=== PATIENT | male | born 1975 | race Caucasian/White ===

== ENCOUNTER 2021-01-22 11:43 | Outpatient (REF) | payer OTHER, SELFPAY ==
[2021-01-22 13:55] LABS: MANUAL DIFF FLAG NO
[2021-01-22 14:01] LABS: Basophils Absolute Auto 0.1 X10*3/uL (0.0-0.2); Basophils Percent Auto 0.6 % (0-2); Eosinophils Absolute Auto 0.1 X10*3/uL (0.0-0.4); Eosinophils Percent Auto 0.9 % (0-4); Hematocrit 42.9 % (42-52); Hemoglobin 15.3 g/dl (14.0-18.0); Imm Gran Abs Auto 0.03 X10*3/uL (0.00-0.03); Imm Gran Pct Auto 0.3 % (0.0-0.4); Lymphocytes Absolute Auto 1.7 X10*3/uL (1.2-4.9); Mean Corpuscular HGB Conc 35.7 g/dl (31.0-36.0); Mean Platelet Volume 9.3 fL (9.4-12.4); Monocytes Absolute Auto 0.7 X10*3/uL (0.1-1.2); Monocytes Percent Auto 7.9 % (2-11); Neutrophils Percent Auto 70.3 % (45-73); Platelet Count 341 X10*3/uL (160-400); Red Blood Count 4.93 X10*6/uL (4.60-5.80); Red Cell Distribution Width 11.7 % (11.0-16.0); White Blood Count 8.6 X10*3/uL (4.8-10.8)
[2021-01-22 14:32] LABS: Anion Gap 16 (12-20); Blood Urea Nitrogen 17 mg/dL (9-16); Calcium 9.9 mg/dL (8.4-10.2); Carbon Dioxide 33 mmol/L (22-29); Chloride 92 mmol/L (96-108); Cholesterol 167 mg/dL; Estimated Glomerular Filt Rate 56; Glucose Fasting 102 mg/dL (60-99); HDL Cholesterol 62 mg/dL; LDL Cholesterol Calculated 93 mg/dl; Potassium 2.9 mmol/L (3.3-5.1); Sodium 138 mmol/L (135-145); Triglycerides 61 mg/dL
== END 2021-01-22 11:44 | disposition home or self-care (01) ==
LOC: HO.HMGCLDS 11:43
PROVIDERS: PCP Internal Medicine; Visit Provider Internal Medicine
DX: Z00.01 Encounter for general adult medical examination with abnormal findings (principal); I10 Essential (primary) hypertension; S61.204A Unspecified open wound of right ring finger without damage to nail, initial encounter; X58.XXXA Exposure to other specified factors, initial encounter; Y93.9 Activity, unspecified; Y92.9 Unspecified place or not applicable; Y99.9 Unspecified external cause status
CPT/HCPCS: 36415; 80048; 80061; 85025

== ENCOUNTER 2023-06-03 11:20 | Outpatient (AMB) | payer OTHER, SELFPAY ==
--- NOTE | 2023-06-03 11:39 | MHC.PC.OV ---
Vital Signs 06/03/23 11:44 Height 5 ft 9 in Weight 183 lb BMI 27.0 BP 122/70 Blood Pressure Location Lt brachial Position Sitting Pulse 65 Pulse Source Pulse Oximeter Pulse Oximetry (%) 98 Oxygen Delivery Method Room Air Intake Visit Reasons: medical issues Intake Note: Pt is here today c/o Rt shoulder pain and tingling Allergies No Known Allergies Allergy (Verified 06/03/23 11:57) Medication List - Last Reconciled 06/03/23 by Natalya Pires MD No Known Home Meds Tobacco use date assessed: 06/03/23 Dental Screening Dental Screen Date: 06/03/23 Did you have a dental visit in the last 12 months?: Yes Did you have a dental problem in the last 6 months where you did not have access to dental care?: Yes Was dental information given to patient?: Patient has dentist HPI medical issues HPI Details 48-year-old male, here today complaining of pain and stiffness in paraspinal muscles in right cervical area, with tingling sensation going down right arm on occasion. Denies any history of trauma, no history of fall, no weakness reported. [facility] Medical History (Updated 06/03/23 @ 12:11 by Natalya Pires MD) Blurred vision, bilateral History of kidney stones Hx of gout Surgical History History of urethral stent S/P orchiopexy S/P tendon repair Family History Father History of hypertension Hx of hyperlipidemia Hx of myocardial infarction Substance use disorder Mother History of COPD Substance use disorder Paternal Uncle Substance use disorder Paternal Grandfather Substance use disorder Paternal Uncle Mental health disorder Paternal Uncle Mental health disorder Social History Housing: House Alcohol intake: current Patient Tobacco Use Status: Never used Tobacco e-Cigarette/Vaping Use: Never Used service: Yes Current occupational status: employed Cognitive needs: No Hearing needs: No Vision needs: No Questionnaire PHQ-9 Over the last 2 weeks, how often have you been bothered by any of the following problems? 1. Little interest or pleasure in doing things: not at all 2. Feeling down, depressed, or hopeless: not at all 3. Trouble falling or staying asleep, or sleeping too much: not at all 4. Feeling tired or having little energy: not at all 5. Poor appetite or overeating: not at all 6. Feeling bad about yourself - or that you are a failure or have let yourself or your family down: not at all 7. Trouble concentrating on things, such as reading the newspaper or watching television: not at all 8. Moving or speaking so slowly that other people could have noticed. Or the opposite - being so fidgety or restless that you have been moving around a lot more than usual: not at all 9. Thoughts that you would be better off or of hurting yourself in some way: not at all Total score: 0 Depression Screening Interpretation: Negative 88944 - PHQ-9 Billing: Yes Source: Developed by Drs. Kishan Hanson, Jeanna Carballo, Ravindra Kendrick and colleagues, with an educational acacia from [employer] Thrive Questionnaire Date Thrive assessed: 06/03/23 I am a: Patient What is your living situation today?: I have a steady place to live Within the past 12 months, did the food you bought not last and you didn't have the money to get more?: Never true Within the past 12 months, did you worry whether your food would run out before you got money to buy more?: Never true Do you have trouble paying for medicines?: No Do you have trouble getting transportation to medical appointments?: No Do you have trouble paying your heating and electricity bill?: No Do you have trouble taking care of your child, family member or friend?: No Do you have trouble with day-to-day activities such as bathing, preparing meals, shopping, managing finances, etc.?: No Are you currently unemployed and looking for a job?: No Are you interested in more education?: No AUDIT C Alcohol Use Questionnaire (AUDIT-C) 1. How often do you have a drink containing alcohol?: Monthly or less 2. How many drinks containing alcohol do you have on a typical day when you are drinking?: 1 or 2 3. How often do you have six or more drinks on one occasion?: Never Total Score: 1 SUSANA-7 AMB Questionnaire SUSANA-7 Date SUSANA - 7 assessed: 06/03/23 Feeling nervous, anxious, or on edge: 0 = Not at all Not being able to stop or control worryin = Not at all Worrying too much about different things: 0 = Not at all Trouble relaxin = Not at all Being so restless that it is hard to sit still: 0 = Not at all Becoming easily annoyed or irritable: 0 = Not at all Feeling afraid as if something awful might happen: 0 = Not at all Total SUSANA-7 score (0-4 normal; 5-9 mild; 10-14 moderate; 15-21 severe): 0 Source: Developed by Drs. Kishan Hanson, Jeanna Carballo, Ravindra Kendrick and colleagues, with an educational acacia from [employer] SUSANA-7 Assessment Billing SUSANA-7 Assessment Tool: SUSANA-7 Assessment 69646 Review of Systems Const All systems reviewed & are unremarkable except as noted in HPI and below Eyes Reports blurry vision (When reading, requesting referral to Ophthalmology, has ) Physical exam (Primary Care) Vital Signs: Last Vital Signs Pulse 65 06/03/23 11:44 BP 122/70 06/03/23 11:44 Pulse Ox 98 06/03/23 11:44 Oxygen Delivery Method Room Air 06/03/23 11:44 BMI result Body Mass Index 27.0 Tobacco/Smoking Status: Tobacco use Status Tobacco use date assessed 06/03/23 06/03/23 11:45 Patient Tobacco Use Status Never used Tobacco 06/03/23 11:45 e-Cigarette/Vaping Use Never Used 06/03/23 11:45 Depression Screening Interpretation: Negative Const General: healthy appearing, comfortable and no acute distress Nutritional Appearance: average body habitus Orientation/consciousness: patient oriented x3 HENMT Head: Yes normocephalic and Yes atraumatic Eyes General: appearance normal, both eyes and all related structures Pupils: Equal, round and reactive pupils present EOM: EOMs intact bilaterally Neck Neck: Yes full ROM, Yes no lymphadenopathy and Yes supple Back/Spine/Pelvis Cervical Spine: normal cervical lordosis, cervical ROM normal, cervical muscular tenderness (On right and over the right trapezius) and No pain with cervical ROM Skin General skin exam: no rashes or lesions noted Neuro General: patient oriented x3 Cranial nerves: Yes Equal, round and reactive pupils present Assessment and Plan Assessment & Plan (1) Cervical paraspinal muscle spasm: Code(s): M62.838 - Other muscle spasm Plan: Ordered x-ray of cervical spine, in the meantime advised to try applying Salonpas patch with lidocaine to affected area twice a day as needed and may take an occasional ibuprofen as needed. (2) Blurred vision, bilateral: Code(s): H53.8 - Other visual disturbances Plan: Ophthalmology referral ordered Orders: Orders XR cervical spine 4V Today M62.838 - Other muscle spasm Referrals Ophthalmology Referral H53.8 - Other visual disturbances Coding Level of Care Code Est Pt Level 3 (09956) Diagnoses Cervical paraspinal muscle spasm M62.838 Blurred vision, bilateral H53.8 Additional Codes SUSANA-7 Assessment Billing - SUSANA-7 Assessment Tool: SUSANA-7 Assessment 91107 ([id number])
[2023-06-03 11:44] VITALS: BP 122/70; PULSE 65; O2SAT 98; BMI 27.0
== END 2023-06-03 13:41 | disposition home or self-care (01) ==
PROVIDERS: PCP Internal Medicine; Visit Provider Internal Medicine
DX: M62.838 Other muscle spasm (principal); H53.8 Other visual disturbances
CPT/HCPCS: 99213

== ENCOUNTER 2023-12-20 07:55 | Outpatient (AMB) | payer OTHER, SELFPAY ==
[2023-12-20 08:08] VITALS: BP 114/80; PULSE 81; O2SAT 97; BMI 27.2
--- NOTE | 2023-12-20 08:08 | A.OFFPC_ITS ---
Vital Signs 12/20/23 08:08 Height 5 ft 9 in Weight 184 lb BMI 27.2 BP 114/80 Blood Pressure Location Rt brachial Position Sitting Pulse 81 Pulse Source Pulse Oximeter Pulse Oximetry (%) 97 Intake Visit Reasons: PHY Intake Note: Pt is here today for his PE: Colonoscopy done thru [facility] 2 wks ago (pt will get report) Allergies No Known Allergies Allergy (Verified 12/20/23 08:13) Medication List - Last Reconciled 12/20/23 by Natalya Pires MD No Known Home Meds Tobacco use date assessed: 12/20/23 Dental Screening Dental Screen Date: 12/20/23 Did you have a dental visit in the last 12 months?: No Was dental information given to patient?: Patient has dentist HPI BESS HPI Details 48-year-old male here today for his phys ical exam. He has history of gout and history of kidney stones, no recent attacks. Has been feeling well with no complaints at present time. He is due for colon cancer screening. Has had COVID vaccines, but declines getting the booster, due for his flu shot, up-to-date with his Tdap. Patient states that he had a colonoscopy done at the [facility] 2 weeks ago with unremarkable findings except for hemorrhoids. Will request copy of record. Complains of mole on left inguinal area which has been increasing in size over the last several months, would like to get it checked. Patient states that he has in a new relationship retina, like to get checked for STI. Has no symptom PFSH Medical History Blurred vision, bilateral Hx of gout History of kidney stones Surgical History S/P orchiopexy History of urethral stent S/P tendon repair Family History Father History of hypertension Hx of hyperlipidemia Hx of myocardial infarction Substance use disorder Mother History of COPD Substance use disorder Paternal Uncle Substance use disorder Paternal Grandfather Substance use disorder Paternal Uncle Mental health disorder Paternal Uncle Mental health disorder Social History Housing: House Alcohol intake: current Patient Tobacco Use Status: Never used Tobacco e-Cigarette/Vaping Use: Never Used service: Yes Current occupational status: employed Cognitive needs: No Hearing needs: No Vision needs: No Questionnaire PHQ-9 Over the last 2 weeks, how often have you been bothered by any of the following problems? 1. Little interest or pleasure in doing things: several days 2. Feeling down, depressed, or hopeless: several days 3. Trouble falling or staying asleep, or sleeping too much: several days 4. Feeling tired or having little energy: not at all 5. Poor appetite or overeating: several days 6. Feeling bad about yourself - or that you are a failure or have let yourself or your family down: several days 7. Trouble concentrating on things, such as reading the newspaper or watching television: not at all 8. Moving or speaking so slowly that other people could have noticed. Or the opposite - being so fidgety or restless that you have been moving around a lot more than usual: not at all 9. 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 Kishan Hanson, Jeanna Carballo, Ravindra Kendrick and colleagues, with an educational acacia from [employer]. Thrive Questionnaire Date Thrive assessed: 06/03/23 I am a: Patient What is your living situation today?: I have a steady place to live Within the past 12 months, did the food you bought not last and you didn't have the money to get more?: Never true Within the past 12 months, did you worry whether your food would run out before you got money to buy more?: Never true Do you have trouble paying for medicines?: No Do you have trouble getting transportation to medical appointments?: No Do you have trouble paying your heating and electricity bill?: No Do you have trouble taking care of your child, family member or friend?: No Do you have trouble with day-to-day activities such as bathing, preparing meals, shopping, managing finances, etc.?: No Are you currently unemployed and looking for a job?: No Are you interested in more education?: No THRIVE Score: 0 AUDIT C Alcohol Use Questionnaire (AUDIT-C) 1. How often do you have a drink containing alcohol?: Never Total Score: 0 SUSANA-7 AMB Questionnaire SUSANA-7 Date SUSANA - 7 assessed: 12/20/23 Feeling nervous, anxious, or on edge: 1 = Several days Not being able to stop or control worryin = Several days Worrying too much about different things: 1 = Several days Trouble relaxin = Not at all Being so restless that it is hard to sit still: 0 = Not at all Becoming easily annoyed or irritable: 0 = Not at all Feeling afraid as if something awful might happen: 0 = Not at all Total SUSANA-7 score (0-4 normal; 5-9 mild; 10-14 moderate; 15-21 severe): 3 Source: Developed by Drs. Kishan Hanson, Jeanna Carballo, Ravindra Kendrick and colleagues, with an educational acacia from [employer]. SUSANA-7 Assessment Billing SUSANA-7 Assessment Tool: SUSANA-7 Assessment 05018 Review of Systems Const Denies body aches, Denies fatigue and Denies fever(s) Eyes Denies change in vision ENT Reports no additional complaints Card Denies chest pain, Denies lightheadedness, Denies palpitations and Denies dyspnea Resp Denies chest congestion, Denies cough, Denies dyspnea and Denies wheezing GI Denies abdominal pain, Denies change in bowel habits and Denies heartburn Denies hematospermia, Denies hematuria, Denies oliguria, Denies difficulty urinating, Denies genital lesions, Denies dysuria, Denies penile discharge, Denies testicular mass, Denies testicular pain, Denies urinary frequency and Denies urinary urgency Musc Reports no additional complaints Skin/Breast Reports as per HPI and Denies rash Neuro Reports no additional complaints Psych Details: Currently being seen by therapist at the [facility] Reports as per HPI Endo Denies fatigue, Denies polydipsia, Denies polyuria and Denies palpitations Gelacio/Lymph Denies easy bruising Aller/Immun Denies seasonal rhinorrhea and Denies wheezing Physical exam (Primary Care) Vital Signs: Last Vital Signs Pulse 81 12/20/23 08:08 BP 114/80 12/20/23 08:08 Pulse Ox 97 12/20/23 08:08 BMI result Body Mass Index 27.2 Tobacco/Smoking Status: Tobacco use Status Tobacco use date assessed 12/20/23 12/20/23 08:11 Patient Tobacco Use Status Never used Tobacco 12/20/23 08:11 e-Cigarette/Vaping Use Never Used 12/20/23 08:11 Depression Screening Interpretation: Positive Depression Screening Follow-up: Existing condition, 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 (Currently sees a therapist at the [facility]) Thrive Assessment: Date of Thrive Assessment Date Thrive assessed 06/03/23 12/20/23 08:11 Const General: healthy appearing, comfortable and no acute distress Nutritional Appearance: average body habitus Orientation/consciousness: patient oriented x3 HENMT Head: Yes normocephalic and Yes atraumatic Ears: hearing grossly normal bilaterally, external ears normal, TM's normal bilaterally and EAC's normal General nose exam: Normal external nose present Face and sinus: Yes face symmetric Mouth: Normal oral and palatal mucosa present, oropharynx normal and moist mucous membranes Throat: Yes posterior oropharynx normal Eyes General: appearance normal, both eyes and all related structures Pupils: Equal, round and reactive pupils present EOM: EOMs intact bilaterally Neck Neck: Yes full ROM, Yes no lymphadenopathy and Yes supple Thyroid: Thyroid normal (Nonpalpable) Chest Chest palpation & inspection: normal inspection of the chest Resp Effort & Inspection: normal respiratory effort and able to speak in complete sentences Auscultation: clear to auscultation bilaterally Cardio Palpation: normal PMI Rate: regular rate Rhythm: regular rhythm Heart sounds: S1 normal heart sound present and S2 normal heart sound present GI Inspection: Yes normal to inspection Palpation (GI): Soft to palpation, nontender, no guarding and no masses Auscultation: normal bowel sounds Male General Exam: Yes normal external exam Penis: normal penis and circumcised Scrotum: no masses Back/Spine/Pelvis Cervical Spine: normal cervical lordosis, cervical ROM normal, cervical muscular tenderness (On right and over the right trapezius) and No pain with cervical ROM Skin Other: Black oval shaped slightly raised lesion over left inguinal area, well-defined borders, nontender to palpation Neuro General: patient oriented x3, gait normal, tone normal, moves all extremities and no focal motor deficits Cranial nerves: Yes Equal, round and reactive pupils present Cognition (Neuro): normal cognition Extrem General: Yes full ROM, Yes no joint enlargement, Yes no clubbing, cyanosis or edema and Yes normal gait Psych Appearance: grossly normal Mental Status: mental status grossly normal Speech and movement: Normal speech and movement present Affect: normal affect Attitude: cooperative Thought process: Normal thought process present Thought content: Normal thought content present Office Procedures Flu Questionnaire Does the patient have a severe egg allergy?: No Does the patient have severe life threatening allergies?: No Does the patient have a fever or illness today?: No Has the patient ever had Guillain-[place] Syndrome?: No Has the patient ever had any past reaction to a flu shot?: No Immunizations flu vacc of9011-64 6mos up(PF) 60 mcg(15 mcgx4)/0.5 mL IM syringe Performing Provider: Natalya Pires MD Performing Location: [facility] Administered by: Arlene Brady CMA on 12/20/23 08:51 Dose Route Admin Location Dispensed Lot Number Expiration Date [employer] 0.5 mL IM Right Deltoid 0.5 mL [id number] 04/29/24 [id number] [employer] VIS Given Date VIS Provided VIS Publication Date 12/20/23 Single Vaccine 21 Eligibility Eligibility Date Funding Source Not [facility] Eligible 12/20/23 Private Assessment and Plan Assessment & Plan (1) Adult general medical exam: Code(s): Z00.00 - Encounter for general adult medical examination without abnormal findings Plan: Will check appropriate labs. Recommended dental visit every 6 months and regular eye exams, at least every 2 years. Continue with regular weight- bearing exercises to help maintain good muscle tone and weight control. Instructed to do s self-testicular exam to check for any mass. Declines getting COVID booster, flu vaccine given, up-to-date with Tdap. [facility] (2) Hx of gout: Code(s): Z87.39 - Personal history of other diseases of the musculoskeletal system and connective tissue Plan: Uric acid level ordered (3) Screen for STD (sexually transmitted disease): Code(s): Z11.3 - Encounter for screening for infections with a predominantly sexual mode of transmission Plan: HIV antigen antibody, hepatitis-B and C profile, NG, CT screening ordered (4) Skin lesion of left leg: Code(s): L98.9 - Disorder of the skin and subcutaneous tissue, unspecified Plan: Referred to Dr. Lacey for further evaluation management of lesion. Advised also to check with [facility] if [facility] has a [facility] supervisor that he can see there and see if he can get seen sooner Orders: Orders Uric Acid Today Z00.00 - Encounter for general adult medical examination without abnormal findings, Z13.1 - Encounter for screening for diabetes mellitus, Z13.220 - Encounter for screening for lipoid disorders, Z87.39 - Personal history of other diseases of the musculoskeletal system and connective tissue CT NG by PCR Today Z11.3 - Encounter for screening for infections with a predominantly sexual mode of transmission Hepatitis B,C Profile Today Z11.3 - Encounter for screening for infections with a predominantly sexual mode of transmission HIV Ab/Ag Today Z11.3 - Encounter for screening for infections with a predominantly sexual mode of transmission Basic Metabolic Panel Fasting Today Z00.00 - Encounter for general adult medical examination without abnormal findings, Z13.1 - Encounter for screening for diabetes mellitus, Z13.220 - Encounter for screening for lipoid disorders, Z87.39 - Personal history of other diseases of the musculoskeletal system and connective tissue Lipid Panel Today Z00.00 - Encounter for general adult medical examination without abnormal findings, Z13.1 - Encounter for screening for diabetes mellitus, Z13.220 - Encounter for screening for lipoid disorders, Z87.39 - Personal history of other diseases of the musculoskeletal system and connective tissue Influenza [id number] Immunization Today Z23 - Encounter for immunization Referrals Dermatology Referral L98.9 - Disorder of the skin and subcutaneous tissue, unspecified Coding Level of Care Code Est Pt Prev Care 40-64y(49698) Diagnoses Adult general medical exam Z00.00 Hx of gout Z87.39 Screen for STD (sexually transmitted disease) Z11.3 Skin lesion of left leg L98.9 Additional Codes SUSANA-7 Assessment Billing - SUSANA-7 Assessment Tool: SUSANA-7 Assessment 39058 ([id number])
== END 2023-12-20 09:12 | disposition home or self-care (01) ==
PROVIDERS: PCP Internal Medicine; Visit Provider Internal Medicine
DX: Z00.00 Encounter for general adult medical examination without abnormal findings (principal); L98.9 Disorder of the skin and subcutaneous tissue, unspecified; Z87.39 Personal history of other diseases of the musculoskeletal system and connective tissue; Z23 Encounter for immunization; Z11.3 Encounter for screening for infections with a predominantly sexual mode of transmission
CPT/HCPCS: 90471; 90686; 99396

== ENCOUNTER 2023-12-20 08:52 | Outpatient (REF) | payer OTHER, SELFPAY ==
[2023-12-20 12:03] LABS: Anion Gap 10 (12-20); Blood Urea Nitrogen 13 mg/dL (9-16); Calcium 9.6 mg/dL (8.4-10.2); Carbon Dioxide 31 mmol/L (22-29); Chloride 106 mmol/L (96-108); Cholesterol 150 mg/dL (<200); Estimated Glomerular Filt Rate > 60; Glucose Fasting 97 mg/dL (60-99); HDL Cholesterol 44 mg/dL (>40); LDL Cholesterol Calculated 91 mg/dL (<100); Potassium 3.7 mmol/L (3.3-5.1); Sodium 143 mmol/L (135-145); Triglycerides 78 mg/dL (<150); Uric Acid 7.6 mg/dL (3.4-7.0)
[2023-12-20 12:20] LABS: HBS Num1 0.33 mIU/mL (0-7.99); HBc Num1 0.13 S/CO (0.00-0.79); HBsAGNum1 0.49 S/CO (0.00-0.99); HIV AB/AG Nonreactive (Nonreactive); HIV Num 1 0.06 S/CO (0.00-0.99); Hepatitis B Core Antibody Nonreactive (Nonreactive); Hepatitis B Surface Antigen Negative (Negative); ~Hepatitis B Surface Antibody NONREACTIVE (Nonreactive); ~Hepatitis C Antibody Nonreactive (Nonreactive)
[2023-12-20 13:43] LABS: CT PCR NOT DETECTED (Not Detect.); NG PCR NOT DETECTED (Not Detect.)
== END 2023-12-20 08:53 | disposition home or self-care (01) ==
LOC: HO.HMGCLDS 08:52
PROVIDERS: PCP Internal Medicine; Visit Provider Internal Medicine
DX: Z00.00 Encounter for general adult medical examination without abnormal findings (principal)
CPT/HCPCS: 0353U; 80048; 80061; 84550; 86704; 86706; 86803; 87340; 87389

== ENCOUNTER 2024-11-23 11:59 | Outpatient (AMB) | payer OTHER, SELFPAY ==
--- NOTE | 2024-11-23 11:53 | A.OFFPC_ITS ---
Intake Visit Reasons: insomnia, general health Allergies No Known Allergies Allergy (Verified 11/23/24 12:22) Medication List - Last Reconciled 11/23/24 by Natalya Pires MD trazodone 50 mg PO DAILY Tobacco use date assessed: 11/23/24 Dental Screening Dental Screen Date: 11/23/24 Did you have a dental visit in the last 12 months?: No Did you have a dental problem in the last 6 months where you did not have access to dental care?: No HPI insomnia, general health HPI Details - The patient is a 49-year-old male pres enting with symptoms of severe depression, insomnia, and anxiety related to recent occupational and relationship stress. 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 - He reported checking into the emergenc y room shortly after due to the severity of his depressive symptoms. - The patient's insomnia is described by difficulty falling asleep due to physical sensations and results in limited sleep despite taking trazodone , which he increased to 100 mg - Anxiety symptoms , with difficulty con centration, complains of brain fog , which is exacerbated by lack of sleep, are prominent due to the stress surrounding his occupational situation and living arrangement with his ex-. - He has been under the care of a therap ist from the [facility] and has an upcoming appointment for psychiatric evaluation on December 03. [facility] Medical History (Updated 11/24/24 @ 03:13 by Natalya Pires MD) Depression with anxiety Blurred vision, bilateral Hx of gout History of kidney stones Surgical History S/P orchiopexy History of urethral stent S/P tendon repair Family History Father History of hypertension Hx of hyperlipidemia Hx of myocardial infarction Substance use disorder Mother History of COPD Substance use disorder Paternal Uncle Substance use disorder Paternal Grandfather Substance use disorder Paternal Uncle Mental health disorder Paternal Uncle Mental health disorder Social History Housing: House Alcohol intake: current Patient Tobacco Use Status: Never used Tobacco e-Cigarette/Vaping Use: Never Used service: Yes Current occupational status: unemployed Cognitive needs: No Hearing needs: No Vision needs: Yes Questionnaire PHQ-9 Over the last 2 weeks, how often have you been bothered by any of the following problems? 1. Little interest or pleasure in doing things: several days 2. Feeling down, depressed, or hopeless: several days 3. Trouble falling or staying asleep, or sleeping too much: several days 4. Feeling tired or having little energy: several days 5. Poor appetite or overeating: several days 6. Feeling bad about yourself - or that you are a failure or have let yourself or your family down: several days 7. Trouble concentrating on things, such as reading the newspaper or watching television: several days 8. Moving or speaking so slowly that other people could have noticed. Or the opposite - being so fidgety or restless that you have been moving around a lot more than usual: several days 9. Thoughts that you would be better off or of hurting yourself in some way: not at all Total score: 8 Depression Screening Interpretation: Positive (Currently sees therapist and has an appointment to see psych at the [facility]) Depression Screening Follow-up: Existing condition, In treatment and New Medication prescribed Depression Screening Done: Yes 79211 - PHQ-9 Billing: Yes Source: Developed by Drs. Kishan Hanson, Jeanna Carballo, Ravindra Kendrick and colleagues, with an educational acacia from [employer]. Thrive Questionnaire Date Thrive assessed: 11/23/24 I am a: Patient What is your living situation today?: I have a steady place to live Within the past 12 months, did the food you bought not last and you didn't have the money to get more?: Never true Within the past 12 months, did you worry whether your food would run out before you got money to buy more?: Never true Do you have trouble paying for medicines?: No Do you have trouble getting transportation to medical appointments?: No Do you have trouble paying your heating and electricity bill?: No Do you have trouble taking care of your child, family member or friend?: No Do you have trouble with day-to-day activities such as bathing, preparing meals, shopping, managing finances, etc.?: No Are you currently unemployed and looking for a job?: No Are you interested in more education?: No THRIVE Score: 0 AUDIT C Alcohol Use Questionnaire (AUDIT-C) 1. How often do you have a drink containing alcohol?: Never Total Score: 0 SUSANA-7 AMB Questionnaire SUSANA-7 Date SUSANA - 7 assessed: 11/23/24 Feeling nervous, anxious, or on edge: 2 = More than half the days Not being able to stop or control worryin = More than half the days Worrying too much about different things: 2 = More than half the days Trouble relaxin = More than half the days Becoming easily annoyed or irritable: 2 = More than half the days Feeling afraid as if something awful might happen: 0 = Not at all Source: Developed by Drs. Kishan Hanson, Jeanna Carballo, Ravindra Kendrick and colleagues, with an educational acacia from [employer]. SUSANA-7 Assessment Billing SUSANA-7 Assessment Tool: SUSANA-7 Assessment 97074 Review of Systems Const Denies body aches and Denies fever(s) ENT Reports no additional complaints Card Denies chest pain, Denies lightheadedness and Denies dyspnea Resp Denies chest congestion, Denies cough and Denies dyspnea GI Denies abdominal pain, Denies change in bowel habits and Denies heartburn Musc Reports no additional complaints Neuro Reports no additional complaints Psych Details: Currently being seen by therapist at the [facility] Reports as per [facility] Physical exam (Primary Care) Tobacco/Smoking Status: Tobacco use Status Tobacco use date assessed 11/23/24 11/23/24 11:56 Patient Tobacco Use Status Never used Tobacco 11/23/24 11:56 e-Cigarette/Vaping Use Never Used 11/23/24 11:56 PHQ-9: PHQ-9 Score PHQ-9: Total score 8 11/23/24 12:25 Depression Screening Interpretation: Positive (Currently sees therapist and has an appointment to see psych at the [facility]) Depression Screening Follow-up: Existing condition, In treatment and New Medication prescribed Thrive Assessment: Date of Thrive Assessment Date Thrive assessed 11/23/24 11/23/24 11:58 Telehealth Telehealth Telehealth Platform: [facility] Location of provider rendering services: practice address Location of patient: address on file Patient Identification confirmed using: Name, : Yes Telehealth method: video Patient verbally consented to treatment: Yes Patient verbally consented to billing insurance company: Yes Patient informed of any privacy concerns related to visit: Yes Minutes spent on Phone/Video with Pt.: 15 Coding Level of Care Code Tele Est Pt Level 3 (68452) Diagnoses Depression with anxiety F41.8 Additional Codes PHQ-9 - 89673 - PHQ-9 Billing: Yes ([id number]) SUSANA-7 Assessment Billing - SUSANA-7 Assessment Tool: SUSANA-7 Assessment 76082 ([id number]) Assessment & Plan Assessment & Plan (1) Depression with anxiety: Code(s): F41.8 - Other specified anxiety disorders Category: Medical Plan: - Begin taking sertraline as directed: start with half a tablet daily for 3-4 days, then may increase it to a full dose of 50 mg once a day if needed. - Take zolpidem, starting with half a tablet if necessary, at night to assist with sleep. - Use alprazolam in case of severe anxiety, only as instructed. patient cautioned about these medications being habit-forming. to take it only as needed - Discontinue use of trazodone. - Avoid alcohol while on these medications. - Maintain contact with your therapist and attend your psychiatric evaluation on December 03. - Focus on personal care and preparing resumes. - Seek support from family and friends as needed. - Report any side effects or concerns with medications promptly. - Ensure the appointment at the [facility] is retained and discuss medication changes with them. - Return if symptoms persist or worsen. Patient was informed and verbally consented to the use of an ambient scribe for clinic note documentation during this visit. Medications: New sertraline Take initially half a tablet or 25 mg once a day for the 1st week, and increase dose to 50 mg once a day on the 2nd week as needed 50 mg PO DAILY 30 tabs 0RF lorazepam 0.5 mg PO DAILY PRN 10 tabs 0RF anxiety zolpidem 10 mg PO BEDTIME PRN 14 tabs 0RF insomnia
--- OUTSIDE RECORDS SUMMARY | 2024-11-23 14:07 | XMS_ITS | Encounter Summary ---
Author Name [facility] Address [address] [place] [address] Care Team Providers Care [facility] Former Brace End Name Role Phone [facility] Primary Care Provider Unavaila ble Insurance Providers: All historical and current Section Date Range: From patient's date of to the date document was created. This section includes the names of all active insurance providers for the patient. Insurance Provider Type of Coverage Plan Name Start of Policy Coverage End of Policy Coverage Group Number Member ID Insurance Provider's Telephone Number Policy Garcia's Name Patient's Relationship to Policy Garcia [employer] PRES[employer] ION RX Oct 31, 2022 THPRX [id number] [phone] [place] PATIENT [facility] [facility] Oct 31, 2022 [id number] [place] PATIENT [employer] [facility] TON HOFFMANN E Oct 31, 2022 [id number] [phone] TEGAN YEAGER PATIENT Selected Encounter This section includes the information on record at [place] for the Encounter. Date/Time Encounter Type Encounter Description Reason Pro vider Source Nov 01, 2024 02:09 PM Outpatient Encounter ADMIN PAT ACTIVTIES (MASNONCT) IHE Encounter Template Text not used by [place] Plan of Treatment: Future Appointments (+ 6 months) and Future Tests (+/- 45 days) The Plan of Treatment section includes future care activities for the patient [facility] all [facility] This section includes future appointments and future orders which are active, pending or scheduled. Future Appointments This section includes appointments that were scheduled to occur 6 months from the date of the Encounter, up to a maximum of 20 appointments. The data comes from all [facility]. Appointment Date/Time Appointment Type Appointme nt Facility Name Dec 03, 2024 09:00 AM AMBULATORY - PSYCHIATRY [facility] Dec 13, 2024 11:00 AM AMBULATORY PSYCHIATRY [facility] Active, Pending, and Scheduled Orders This section includes a listing of several types of active, pending, and scheduled orders, including clinic medications orders, diagnostic test orders, procedure orders and consult orders; where the start date of the order is 45 days before the date of the Encounter or 45 days after the date of theEncounter. The data comes from all [facility]. Test Date/Time Test Type Test Details Facility Name Nov 02, 2024 12:00 AM Laboratory - Chemistry Order HEPATITIS B SURFACE ANTIBODY (HBsAb)-WH BLOOD (SST-SERUM) [facility] Nov 02, 2024 12:00 AM Laboratory - Chemistry Order LIPID PANEL FASTING BLOOD (SST-SERUM) [facility] Nov 02, 2024 12:00 AM Laboratory - Chemistry Order BASIC METABOLIC PANEL (fasting) BLOOD (SST-SERUM) [facility] Nov 02, 2024 12:00 AM Laboratory - Chemistry Order LIVER FUNCTION BLOOD (SST-SERUM) [facility] Nov 02, 2024 12:00 AM Laboratory - Chemistry Order CBC BLOOD (LAV-BLOOD) [facility] Nov 06, 2024 12:00 AM Laboratory - Chemistry Order PSA BLOOD (SST-SERUM) [facility] Nov 20, 2024 01:56 PM Consult Order MENTAL HEALTH SERVICES/SPOPC OUTPT Cons Technical Clerk's Choice [facility] Nov 20, 2024 02:37 PM Consult Order PSYCHIATRIC MEDICATION SOPC OUTPT Cons Technical Clerk's Choice [facility] Social History: Smoking Status (Most current) and Tobacco Use (All prior to encounter date) This section includes the most current, and the historical, smoking and tobacco- related health factors from the [place] facility where the Encounter took place. Current Smoking Status This section includes the most current smoking, or tobacco-related health factor, from the [place] facility where the Encounter took place. Date/Time Current Smoking Status Comment Facil ity Aug 29, 2023 03:07 PM VA-TOBACCO NEVER USED [facility] Encounter Notes: All associated encounter notes This section contains the clinical notes associated to the Encounter. Date/Time Encounter Note(s) Provider Source Nov 01, 2024 02:09 PM ADMINISTRATIVE NOTE: LOCAL TITLE: CCC: SCHEDULING ADMINISTRATION STANDARD TITLE: ADMINISTRATIVE NOTE DATE OF NOTE: NOV 01, 2024@14:09:24 ENTRY DATE: NOV 01, 2024@14:09:24 AUTHOR: ANITA RUIZ COSIGNER: URGENCY: STATUS: COMPLETED Patient Demographics Patient Name: TEGAN YEAGER Patient Primary Phone: [phone] Patient Primary Address: [address] [place] [address] Patient : 1975 Patient Age: 49 Call Back Number: [phone] Caller/Recipient Relation to Patient: Self Caller Name: TEGAN YEAGER Scheduling Patient Expects Callback: Yes Administrative Administrative Note Reason: Other Administrative Note Comments: called to report his therapist(Tierra Jolly [phone]) at the [facility]ant and sleep medication through the [facility]. 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 [place] stated that he will have the office visit notes from therapist at his annual exam as he is seeing her the day before the PC appointment. Please call back at [phone], if no answer please leave a detailed message as it is a secure voicemail. IMPORTANT: This note was created by [facility] Contact [facility] staff. Please do not alert the staff member by adding them as a signer for future communications. Alerts are not monitored by this user. /xiomara/ ANITA STONER Signed: 11/01/2024 14:09 Receipt Acknowledged By: 11/02/2024 11:09 /es/ Alfredo Root, Health Supervisor Sample [employer] SPONGE MAKING MACHINE OPERATOR,PRIMARY CARE 11/02/2024 11:28 /xiomara/ Na Alcantar RN, BSN Primary Care Nurse Account Director for ANITA METZGER [facility]
--- OUTSIDE RECORDS SUMMARY | 2024-11-23 14:07 | XMS_ITS ---
Author Name [facility] [place] [facility] [place] Address [address] [place] [id number] Care Team Providers Care Correctional Lieutenant Name Role Phone BIRD DIAL Primary Care [...] PRESCRIPT ION RX Oct 31, 2022 THPRX [id number] [phone] TOY, TEGAN PATIENT [facility] TON HOFFMANN E Oct 31, 2022 [phone] TOY, TEGAN PATIENT [facility] TON HOFFMANN E Oct 31, 2022 [phone] TEGAN YEAGER PATIENT Selected Encounter This section includes the information on record at [place] for the Encounter. Date/Time Encounter Type Encounter Description Reason Provider Source Aug 15, 2024 10:00 AM COMPRE OPH EXAM NEW PT 1/> OPTOMETRY ICD-10-CM H52.4 Presbyopia HOLLY BARRON Encounter Template Text not used by VA Assessments - Encounter Diagnoses This section includes the primary and secondary diagnoses documented for the Encounter. Date/Time Primary/Secondary Diagnosis Diagnosis Name Provider Source Aug 15, 2024 03:25 PM PRIMARY Presbyopia HOLLY BARRON [facility] Plan of Treatment: Future Appointments (+ 6 months) and Future Tests (+/- 45 days) The Plan of Treatment section includes future care activities for the patient from all [place] treatmentfacilities. This section includes future appointments and future orders which are active, pending or scheduled. Future Appointments This section includes appointments that were scheduled to occur 6 months from the date of the Encounter, up to a maximum of 20 appointments. The data comes from all [place] treatment facilities. Appointment Date/Time Appointment Type Appointme nt Facility Name Dec 03, 2024 09:00 AM AMBULATORY - PSYCHIATRY [facility] Dec 13, 2024 11:00 AM AMBULATORY PSYCHIATRY [facility] Social History: Smoking Status (Most current) and Tobacco Use (All prior to encounter date) This section includes the most current, and the historical, smoking and tobacco- related health factors from the [place] facility where the Encounter took place. Current Smoking Status This section includes the most current smoking, or tobacco-related health factor, from the [place] facility where the Encounter took place. Date/Time Current Smoking Status Comment Efrem hey Aug 29, 2023 03:07 PM VA-TOBACCO NEVER USED [facility] Encounter Notes: All associated encounter notes This section contains the clinical notes associated to the Encounter. Date/Time Encounter Note(s) Provider Source Aug 15, 2024 07:15 AM OPTOMETRY NOTE: LOCAL TITLE: OPTOMETRY NOTE STANDARD TITLE: OPTOMETRY NOTE DATE OF NOTE: AUG 15, 2024@07:15 ENTRY DATE: AUG 15, 2024@07:15:36 AUTHOR: VERONICA ALEXANDRE EXP COSIGNER: HOLLY BARRON URGENCY: STATUS: COMPLETED OPTOMETRY NOTE Has ADDENDA Active problems - Computerized Problem List is the source for the followin. Snoring 2. Pain of bilateral knee joints 3. laceration of tendon right hand repair 4. Depression 5. Gout ([facility] [id number]) 6. Insomnia 7. Kidney stone 8. Tinnitus Active Outpatient Medications (including Supplies): Active Non-VA Medications Status 1) Non-VA IBUPROFEN 800MG TAB 800MG BY MOUTH EVERY 8 ACTIVE HOURS NEEDED 2) Non-VA MELATONIN 5MG CAP/TAB 5MG BY MOUTH AT BEDTIME ACTIVE NEEDED Allergies: Patient has answered NKA All medications including those prescribed by outside VA's, community providers, and all OTC meds were reviewed and reconciled with patient to the best of their abilities. This 49 year old MALE is seen today for annual CEE DUSTY: 2yrs ago in [facility] Chief Complaint: [place] complained that his vision at near is blurry and he only wears OTC +1.25D. [place] has never worn any glasses before. Unremarkable ocular history. OHx: 1. Astigmatism Ocular Medications: None (-) Pain: (-) [place]: (-) Diplopia: (-) Flashes: (-) Floaters: (-) Eye Injury: (-) Eye Surgery: (-) TBI FOHx: (-) Glaucoma/ARMD/Blindness VITALS (most recent, as listed in the electronic record): B/P: Pulse: Temperature: Weight: Height: BMI: BMI: PERTINENT LABS: HEMOGLOBIN A1C TREND No data available (-) Smoker/Length of Time/PPD: Auto-refraction OD: +0.50-0.50 x086 20/20-1 OS: +1.00-1.00 x014 20/20 Pupils: PERRL (-)APD EOMs: SAFE OU, (-)Pain/Diplopia CVF (facial, peripheral): FTFC OU DVA sc OD: 20/20 OS: 20/25+1 Subjective Refraction: OD: +0.50-0.75 x 086 20/20 OS: +1.00-1.25 x 014 20/20 Add:+1.50 NRA/PRA: +1.25/-0.75 Final SRx after trial framed OD: +0.50-0.75 x 085 OS: +1.00-1.25 x 015 Add:+1.75 Final NVO OD: +2.25-0.75 x 085 OS: +2.75-1.25 x 015 Final computer glasses(with +1.00D Add) OD: +1.50-0.75 x 085 OS: +2.00-1.25 x 015 All the above performed by student, reviewed by attending Anterior segment: Performed by student, repeated by attending * Lids: clear OU Conj: white and quiet OU Cornea: clear (-)k spindle OU AC: D&Q OU Angles: 4x4 OU Iris: flat and clear OU Lens: clear (-)PXF OU Tonometry: Performed by student, reviewed by attending * [x ] GAT [ ] iCare OD 13 mmHg OS 13 mmHg Time: 10:10am Fundus exam: Dilated:xxx Non dilated: Dilating Drops: 1GTT 1 % Tropicamide OU & 1GTT 2.5% Phenylephrine OU (Pt. ed. on side effects, dilation warning given and verbal consent obtained) Patient advised not to drive if they feel they have any symptoms which could affect their ability to drive safely. Patient advised not to engage in any activities which could put themselves or others at risk if they feel they have any symptoms which could affect their ability to perform those activities safely. Performed by student, repeated by attending * Vit: clear OU C/D: 0.10 OD and 0.15 OS pink & healthy rim tissue Macula: flat and clear OU PPole: clear OU A/V: 2/3 Vessels: normal caliber OU Periph: flat and intact (-) holes, tears, detachments 360 OU (+) WWP IT OS Assessment/Plan: 1. Hyperopia and presbyopia OU - Pt. ed. on todays findings - Is going to pick out new frames for NVO and computer - Monitor 2. Unremarkable dilated eye exam - Pt. ed on findings - Monitor Return to Clinic 2yr or earlier PRN EYE: Visual Function Reminder: Normal Vision: 20/25 or better: Unspecified disorder of refraction or accommodation (367.9). Medication Reconciliation: Outpatient: Has the patient been taking medications as documented in the EMLR? YES: The patient has been taking medications as documented in the EMLR. Essential Medication List for Review used to complete this medication reconciliation. INCLUDED IN THIS LIST: Alphabetical list of active outpatient prescriptions dispensed from this VA (local) and dispensed from another VA or [facility] facility (remote) as well as inpatient orders (local, pending and active), local clinic medications, locally documented non-VA medications, and local prescriptions that have or been discontinued in the past 90 days. - All changes in medications, including all non-VA/Herbal/OTC medications were entered into CPRS. - If there were any medications the patient should no longer take, they were discontinued. - The patient/caregiver was instructed to update this list, discard old lists, and take this list to the next appointment, whether with a VA or non-VA provider. Medication List: JLV Link Data on this list may not be complete. Please check JLV. Allergies/ADRs (Tool #5) FACILITY ALLERGY/ADR -------- No Remote Allergy/ADR Data available for this patient [facility] No Known Allergies Med. Reconciliation (Tool #1) INCLUDED IN THIS LIST: Alphabetical list of active outpatient prescriptions dispensed from this [place] (local) and dispensed from another [place] or [facility] facility (remote) as well as inpatient orders (local pending and active), local clinic medications, locally documented non-VA medications, and local prescriptions that have or been discontinued in the past 90 days. Non-VA Meds Last Documented On: Aug 30, 2023 NOTE The display of VA prescriptions dispensed from another [place] or [facility] facility (remote) is limited to active outpatient prescription entries matched to National Drug File at the originating site and may not include some items such as investigational drugs, compounds, etc. NOT INCLUDED IN THIS LIST: Medications self-entered by the patient into personal health records (i.e. byyd) are NOT included in this list. Non-VA medications documented outside this [place], remote inpatient orders (regardless of status) and remote clinic medications are NOT included in this list. The patient and provider must always discuss medications the patient is taking, regardless of where the medication was dispensed or obtained. Non-VA IBUPROFEN 800MG TAB TAKE ONE TABLET BY MOUTH EVERY 8 HOURS NEEDED Indication: FOR PAIN Non-VA MELATONIN 5MG CAP/TAB TAKE ONE CAPSULE/TABLET BY MOUTH AT BEDTIME NEEDED Patient wants to buy from Non-VA pharmacy. Indication: FOR INSOMNIA SUPPLIES PHARMACY TERMS AND POSSIBLE PATIENT ACTIONS INPT = [place] inpatient order IV = [place] intravenous medication OUTPT = [place] outpatient prescription PHARMACY POSSIBLE PATIENT TERMS EXPLANATION ACTIONS -------- ------ ACTIVE A prescription that can be If you have refills, filled at the local [place] pharmacy. you may request a refill of this prescription from your [place] pharmacy. CLINIC A medication you received during If you have questions a visit to a [place] clinic or about this medication emergency department. contact your [place] healthcare team. DISCONTINUED A prescription your provider has Contact your [place] stopped. It is no longer healthcare team if you available to be sent to you or need more of this picked up at the [place] pharmacy medication. window. A prescription which is too old Contact your VA to fill. This does not refer to healthcare team if you the expiration date of the need more of this medication in the container. medication. NON-VA A medication that came from If this medication someplace other than a VA information is pharmacy. This may be a incorrect or out of prescription from either the VA date, please tell your or non VA providers that was VA healthcare team. filled outside the VA. Or, it may be an [id number] (OTC), herbal, dietary supplements or sample medication. ON HOLD An active prescription that will Contact your VA not be filled until pharmacy pharmacy when you need resolves the issue. more of this medication. PARKED An active prescription that will Contact your VA not be filled until the patient pharmacy when you need requests it. this medication. PENDING This prescription order has been If you have been sent to the pharmacy for review instructed to start and is not ready yet. this medication now, contact your VA pharmacy. SUSPENDED An active prescription that is Contact your VA not scheduled to be filled yet. pharmacy if you need You should receive it before this medication now. you run out. (x) Printed Medication Reconciliation List Offered and Declined by [place] () Medication Reconciliation List Printed for [place] at Exam () Optometry HT Please Print and Mail Copy of Medication Reconciliation List () AMSA Please Print and Mail Copy of Medication Reconciliation List /xiomara/ VERONICA ALEXANDRE OPTOMETRY STUDENT Signed: 08/15/2024 16:28 /xiomara/ HOLLY BARRON OD RECRUITING OPERATIONS CONSULTANT Cosigned: 08/16/2024 07:47 08/16/2024 ADDENDUM STATUS: COMPLETED The optometry recruiting internship participated in this exam, I saw this in conjunction with the optometry student. The entrance tests and refraction were performed by the student and reviewed by me. I personally met with the patient, confirmed the hisory, complaints and the student's findings, and performed slit lamp and fundus evaluation as indicated. I reviewed and agree with the stated findings, assessment and plan. I have added/edited the documentation to reflect my exam findings and changes to the assessment and plan. Ed re today's findings. repeated back the plan and education. All reminders completed by attending and documented in student note. /xiomara/ HOLLY BARRON OD RECRUITING OPERATIONS CONSULTANT Signed: 08/16/2024 07:47 VERONICA ALEXANDRE [place] [facility]
--- OUTSIDE RECORDS SUMMARY | 2024-11-23 14:07 | XMS_ITS | Continuity of Care Document ---
Author Organization [facility] Address [address] [place] [address]- Care Team Providers Care Hydrology Technician Name Role Phone Pranay PEREYRA, Natalya Pickard Primary Care Physician Encounter [facility] Date(s): 11/18/24 - 11/18/[address] [address]- Discharge Disposition: A-D/C Home Attending Physician: Jose F Hess MD Admitting Physician: Jose F Hess MD Referring Physician: Not on Staff, Referring MD Encounter Type: Disch ES Allergies, Adverse Reactions, Alerts No Known Allergies Immunizations Given and Recorded Vaccine Date Status Refusal Reason tetanus/diphtheria/pertussis, acel(Tdap) 05/04/18 Given Medications traZODone 50 mg oral tablet 50 mg, 1, tablet, By Mouth, Daily at bedtime, # 30 tablet, Refills 0, Tot. Refills 0, Maintenance, 11/18/24 8:41:00 AM EST, Route to Pharmacy Electronically, [facility]/pharmacy #[id number], Partial fill upon patient request if the prescription is for a schedule II opioid drug., 176, cm, 11/18/24 6:29:00 EST, Height, 79.1, kg, 11/18/24 6:29:00 EST, Dry Weight Start Date: 11/18/24 Status: Ordered Quantity: 30.0 Unit: tablet Repeat number: 1 Vital Signs Most recent to oldest [Reference Range]: 1 2 3 Height 176 cm (11/18/24 9:20 AM) 176 cm (11/18/24 6:29 AM) 176 cm (11/18/24 6:27 AM) Weight 79.1 kg (11/18/24 9:20 AM) 79.1 kg (11/18/24 6:29 AM) 79.1 kg (11/18/24 6:27 AM) Oxygen Saturation [94-100 %] 99 % (11/18/24 9:20 AM) 99 % (11/18/24 6:29 AM) Pulse Rate [55-90 bpm] 78 bpm (11/18/24 9:20 AM) 75 bpm (11/18/24 6:29 AM) Body Mass Index [18.5-24.99 kg/m2] 25.54 kg/m2 *H* (11/18/24 9:20 AM) 25.54 kg/m2 *H* (11/18/24 6:27 AM) Blood Pressure [90-138/55-84 mm Hg] 127/68mm Hg (11/18/24 9:20 AM) 142/87mm Hg *H* (11/18/24 6:29 AM) Respiratory Rate [16-30 br/min] 20 br/min (11/18/24 9:20 AM) 18 br/min (11/18/24 6:29 AM) Temperature [96.8-100.4 DegF] 98.2 DegF (11/18/24 9:20 AM) 98.7 DegF (11/18/24 6:29 AM) Mode of Delivery (Oxygen) Room air (11/18/24 9:20 AM) Room air (11/18/24 6:29 AM) Blood pressure sites Arm, right (11/18/24 9:20 AM) Arm, left (11/18/24 6:29 AM) Temperature Route Oral (11/18/24 9:20 AM) Oral (11/18/24 6:29 AM) Dry Weight 79.1 kg (11/18/24 9:20 AM) 79.1 kg (11/18/24 6:29 AM) 79.1 kg (11/18/24 6:27 AM) Weight Obtained Via Standing scale (11/18/24 6:29 AM) Standing scale (11/18/24 6:27 AM) Social History Social History Type Response Smoking Status Never smoker entered on: 05/04/18 Sex Sex Representation Male (finding) Note * Jimena PEREYRA, Jose F Barton: PERFORM Event Display: Patient Education Leaflets Authored Date: [id number] Insomnia ?? [id number] Insomnia Insomnia is repeated difficulty going to sleep or staying asleep, or both. Whether you have insomnia is not defined by a specific amount of sleep. Different people need different amounts of sleep, and you may need more or less sleep at different times of your life. There are??3 major types of insomnia: short-term, chronic, and ???other.? Short-term or acute insomnia. This lasts less than??3 months. The symptoms are temporary and can be linked directly to a stressor, such as the of a loved one, financial problems, or a new physical problem. Short-term insomnia stops when the stressor resolves or the person adapts to its presence. ??? Chronic insomnia. This occurs at least??3 times a week and lasts longer than 3 months. Chronic insomnia can occur when either the cause of the sleeping problem is not clear, or the insomnia does not get better when the stressor is resolved. A number of other criteria are also used to make the diagnosis of chronic insomnia.?Other insomnia. This is the third type of insomnia-related sleep disorders. This description applies to people who have problems getting to sleep or staying asleep, but don't meet all of the factors that describe either short-term or chronic insomnia.? Many things cause insomnia. Different people may have different causes. It can be from an underlying medical or psychological condition, or lifestyle. It can also be primary insomnia, which means no cause can be found. Causes of insomnia include: ??? Chronic medical problems such as heart disease, gastrointestinal problems, hormonal changes, orbreathing problems ??? Anxiety ??? Stress ??? Depression ??? Pain ??? Work schedule ??? Sleep apnea??? Illegal drugs ??? Certain medicines Many different medicines can affect your sleep, such as stimulants, caffeine, alcohol, some decongestants, and diet pills. Other medicines may include some types of blood pressure pills, steroids, asthma medicines, antihistamines, antidepressants, seizure medicines and statins (for high cholesterol). Not all of these will affect your sleep. Don't stop without talking to your healthcare provider. Symptoms of insomnia can include: ??? Lying awake for long periods at night before falling asleep ??? Waking up several times during the night ??? Waking up early in the morning and not being able to get back to sleep ??? Feeling tired and not refreshed by sleep ??? Not being able to function properly during the day and finding it hard to concentrate ??? Irritability ??? Tiredness and fatigue during the day Home care ??? Review your medicines with your healthcare provider or pharmacist to find out if they can causeinsomnia. Not all medicines will affect your sleep,??but they shouldn't be stopped without reviewing them with your provider. There may be serious side effects and consequences from suddenly stoppingyour medicines. Not taking them may cause strokes, heart attacks, and many other problems. ??? Caffeine, smoking, and alcohol also affect sleep. Limit your daily use and don't use these before bedtime. Alcohol may make you sleepy at first, but as its effects wear off, you may awaken a few hours later and have trouble returning to sleep. ??? Don't exercise, eat, or drink large amounts of liquid within 2 hours of your bedtime. ??? Improve your sleep habits. Have a fixed bed and wake-up time. Try to keep noise, light and heat in your bedroom at a comfortable level. Try using earplugs or an eye mask if needed.? Don't watch TV in bed. ??? If you don't fall asleep within 30 minutes, try to relax by reading or listening to soft music. ??? Limit daytime napping to one 30 minute period, earlyin the day. ??? Get regular exercise. Find other ways to lessen your stress level. ??? If a medicine was prescribed to help reset your sleep patterns, take it as directed. Sleeping pills are intendedfor short-term use, only. If taken for too long, the effect wears off while the risk of physical addiction and psychological dependence increases. Sleep diary If the cause isn???t obvious and it's not improving, try keeping a sleep diary for a couple of weeks. Include in it: ??? The time you go to bed ??? How long it takes to fall asleep ??? How many timesyou wake up ??? What time you wake up ??? Your meal times and what you eat ??? What time you drink alcohol and caffeine ??? Your exercise habits and times ?? Follow-up care Follow up with your healthcare provider, or as advised. If an X-ray or CT scan was done, you will be notified if there is a change in the reading, especially if it affects treatment. ?? Call 911 Call 911 if any of these occur: ??? Trouble breathing ??? Confusion or trouble waking ??? Fainting or loss of consciousness ??? Rapid heart rate ??? New chest, arm, shoulder, neck or upper back pain ??? Trouble with speech or vision, weakness of an arm or leg ??? Trouble walking or talking, loss of balance, numbness or weakness in one side of your body, facial droop ?? When to get medical advice Call your healthcare provider right away if any of these occur: ??? Extreme restlessness or irritability ??? Confusion or seeing or hearing things that are not there (hallucinations) ??? Anxiety, depression ??? Several days without sleeping ?? Last Reviewed Date: 2021 ?? [id number] [employer]. All rights reserved. This information is not intended as a substitute for professional medical care. Always follow your healthcare professional's instructions. ?? Patient Care team information Care Team Personnel Name: Pranay PEREYRA , Natalya Pickard Position: Reference Physician Member Role: PCP Address: [address] Telecom: Care Team Related Persons Name: KAYLA YEAGER Insurance Providers Guarantor name: TEGAN TOY Health Plan Information #: 1 [place] [employer] [employer] [facility] [place]: [id number] Policy Number: NA Group Number: NA Health Plan Information #: 2 Payer[place] [employer] [facility] [place] Number: [id number] Policy Number: NA Group Number: NA
--- OUTSIDE RECORDS SUMMARY | 2024-11-23 14:07 | XMS_ITS | Continuity of Care Document ---
Author Name [facility] Organization [facility] Care Team Providers Care Supervisor Fruit Grading Name Role Phone [facility] Unavailable Unavailable Problems Combined list of problems from Department of Defense and Veterans Affairs facilities. It does not include entries that were removed or entered in error. Problem Status Onset Date Problem Type Date of Resolution Comments Source laceration of tendon right hand repair Active 12/30/19 20 Condition Aug 29, 2023 Entered By: LINUS COWAN Comment: persistent loss of flexion [facility] nonorganic circadian rhythm sleep disorder Inactive 12/13/19 11 Condition DoD joint pain, localized in the knee Inactive 12/13/19 11 Condition DoD Unspecified injury of flexor muscle, fascia and tendon of right ring finger at wrist and hand level Active 10/29/18 99 Condition DoD Unspecified injury of flexor muscle, fascia and tendon of right little finger at wrist and hand level Active 10/29/18 99 Condition DoD impetigo simplex Inactive Condition DoD Depression Active Condition [facility] Gout ([id number] [id number]) Active Condition [facility] Insomnia Active Condition [facility] Kidney stone Active Condition [facility] Pain of bilateral knee joints Active Condition [facility] Snoring Active Condition [facility] Tinnitus Active Condition [facility] Diagnosis: ICD-10-CM Z46.0 Encounter for fit/adjst of spectacles and contact lenses Active Diagnosis [facility] Diagnosis: ICD-10-CM H52.4 Presbyopia Active Diagnosis [facility] Diagnosis: ICD-10-CM F43.10 Post-traumatic stress disorder, unspecified Active Diagnosis [facility] Diagnosis: ICD-10-CM Z02.89 Encounter for other administrative examinations Active Diagnosis [facility] Diagnosis: ICD-10-CM R06.83 Snoring Active Diagnosis [facility] Diagnosis: ICD-10-CM F32.A Depression, unspecified Active Diagnosis [facility] Medications Combined list of outpatient medications from Department of [facility] and Veterans Affairs facilities.Medications provided include 1) outpatient medications from the last 15 months, and 2) patient-reported medications. Medication Details Route Status Patient Instructions Prescription Expires Prescription Number Last Dispense Date Ordering Provider Order Date Order Qty Source IBUPROFEN 800MG TAB TAKE ONE TABLET BY MOUTH EVERY 8 HOURS NEEDED ORAL ACTIVE PRISCILLA COWAN 2022 [facility] MELATONIN 5MG CAP/TAB TAKE ONE CAPSULE/ TABLET BY MOUTH HS PRN ORAL ACTIVE BIRD DIAL 2022 [facility] Immunizations Combined list of available immunizations from the Department of [facility] and Veterans Affairs facilities. Immunization Series Date Given Administered By Site Reaction Lot Number CVX Code Drug Cardiovascular Technologist Status Comments Source influenza, injectable, quadrivalent, preservative free 2019 [place], () Not Given influenza , injectabl e, quadrival ent, preservat elyssa free [facility] Influenza, injectable, quadrivalent, preservative free 1 2019 Unknown, Provider [id number] 150 Sanofi Pasteur (PMC) complet ed Influenza , injectabl e, quadrival ent, preservat elyssa free DoD Influenza, injectable, quadrivalent, preservative free 29 2018 [id number] 150 Seqirus (SEQ) complet ed Influenza , injectabl e, quadrival ent, preservat elyssa free DoD influenza, injectable, quadrivalent, contains preservative 28 2017 [id number] Seqirus (SEQ) comple t ed influenza , injectabl e, quadrival ent, contains preservat elyssa DoD Influenza, injectable, Madin Alie Canine Kidney, preservative free, quadrivalent 27 2016 [id number] Seqirus (SEQ) comple t ed Influenza , injectabl e, Madin [place] Canine Kidney, preservat elyssa free, quadrival ent DoD Influenza, seasonal, injectable, preservative free 1 2015 [id number] 140 Seqirus (SEQ) comple t ed Influenza , seasonal, injectabl e, preservat elyssa free DoD Influenza, seasonal, injectable, preservative free 1 2014 [id number] 140 Sanofi Pasteur (PMC) complet ed Influenza , seasonal, injectabl e, preservat elyssa free DoD Influenza, seasonal, injectable, preservative free 1 2013 [id number] 140 CS [email or web address] (CSL) complet ed Influenza , seasonal, injectabl e, preservat elyssa free DoD Influenza, seasonal, injectable, preservative free 22 2012 [id number] 140 Can[employer]. (NOV) complet ed Influenza , seasonal, injectabl e, preservat elyssa free DoD Influenza, seasonal, injectable, preservative free 1 2011 [id number] 140 [facility] [employer] Inc. (CSL) complet ed Influenza , seasonal, injectabl e, preservat elyssa free DoD tetanus toxoid, reduced diphtheria toxoid, and acellular pertu is vaccine, adsorbed 0 2011 [id number] 115 Sanofi Pasteur (PMC) complet ed tetanus toxoid, reduced diphtheri a toxoid, and acellular pertussis vaccine, adsorbed DoD Influenza, seasonal, injectable, preservative free 20 2010 [id number] 140 CS [email or web address] (CSL) complet ed Influenza , seasonal, injectabl e, preservat elyssa free DoD anthrax vaccine 4 2009 [id number] 24 [facility] ([facility]) complet ed anthrax vaccine DoD influenza virus vaccine, split virus (incl. purified surface antigen)-reti red CODE 0 2009 [id number] 15 Sanofi Pasteur (PMC) complet ed influenza virus vaccine, split virus (incl. purified surface antigen)- retired CODE DoD anthrax vaccine 4 2009 [id number] 24 [facility] ([facility]) complet ed anthrax vaccine DoD vaccinia (smallpox) vaccine 1 2009 [id number] 75 [employer] ([facility]) complet ed vaccinia (smallpox ) vaccine DoD typhoid Vi capsular polysaccharid e vaccine 1 03/06/ 2010 [id number] 101 [facility] Pasteur ([facility]) complet ed typhoid Vi capsular polysacch aride vaccine DoD Novel influenza-H1N 1-09, injectable 1 2009 127 Transcribed (TRS) complet ed Novel influenza -Z3P3-33, injectabl e DoD influenza virus vaccine, live, attenuated, for intranasal use 1 2008 [id number] 111 [employer] (MED) complet ed influenza virus vaccine, live, attenuate d, for intranasa l use DoD influenza virus vaccine, live, attenuated, for intranasal use 1 2007 [id number] 111 [employer] (MED) complet ed influenza virus vaccine, live, attenuate d, for intranasa l use DoD influenza virus vaccine, live, attenuated, for intranasal use 1 2006 [id number] 111 [employer] (MED) complet ed influenza virus vaccine, live, attenuate d, for intranasa l use DoD influenza virus vaccine, split virus (incl. purified surface antigen)-reti red CODE 1 2005 [id number] 15 Sanofi Pasteur ([facility]) complet ed influenza virus vaccine, split virus (incl. purified surface antigen)- retired CODE DoD influenza virus vaccine, whole virus 1 2005 Unknown, Provider [id number] 16 [facility] ([facility]) complet ed influenza virus vaccine, whole virus DoD influenza virus vaccine, split virus (incl. purified surface antigen)-reti red CODE 1 2004 [id number] 15 [facility] ([facility]) complet ed influenza virus vaccine, split virus (incl. purified surface antigen)- retired CODE DoD influenza virus vaccine, whole virus 1 2004 Unknown, Provider [id number] 16 Sanofi Pasteur ([facility]) complet ed influenza virus vaccine, whole virus DoD influenza virus vaccine, whole virus 0 2004 [id number] 16 Sanofi Pasteur ([facility]) complet ed influenza virus vaccine, whole virus DoD anthrax vaccine 4 2003 [id number] 24 [employer] ([facility]) complet ed anthrax vaccine DoD anthrax vaccine 5 2003 [id number] 24 [employer] ([facility]) complet ed anthrax vaccine DoD influenza virus vaccine, whole virus 0 2002 [id number] 16 Unknown (UNK) complet ed influenza virus vaccine, whole virus DoD typhoid vaccine, parenteral, other than acetone-kille d, dried 0 2002 [id number] 41 Sanofi Pasteur ([facility]) complet ed typhoid vaccine, parentera l, other than acetone-k illed, dried DoD anthrax vaccine 3 2002 [id number] 24 [facility] ([facility]) complet ed anthrax vaccine DoD anthrax vaccine 2 2002 [id number] 24 [facility] ([facility]) complet ed anthrax vaccine DoD tuberculin skin test; purified protein derivative solution, intradermal 1 2002 Unknown, Provider 96 () complet ed tuberculi n skin test; purified protein derivativ e solution, intraderm al DoD influenza virus vaccine, whole virus 0 2002 [id number] 16 [place] ([facility]) complet ed influenza virus vaccine, whole virus DoD hepatitis B vaccine, adult dosage 4 2001 43 () complet ed hepatitis B vaccine, adult dosage DoD tetanus and diphtheria toxoids, adsorbed, preservative free, for adult use (2 Lf of tetanus toxoid and 2 Lf of diphtheria toxoid) 0 2001 09 () complet ed tetanus and diphtheri a toxoids, adsorbed, preservat elyssa free, for adult use (2 Lf of tetanus toxoid and 2 Lf of diphtheri a toxoid) DoD tuberculin skin test; purified protein derivative solution, intradermal 1 2001 Unknown, Provider 96 () complet ed tuberculi n skin test; purified protein derivativ e solution, intraderm al DoD influenza virus vaccine, whole virus 0 2000 [id number] 16 Unknown (UNK) comple t ed influenza virus vaccine, whole virus DoD typhoid vaccine, parenteral, other than acetone-kille d, dried 0 2000 [id number] 41 [facility] typhoid vaccine, parentera l, other than acetone-k illed, dried DoD tuberculin skin test; purified protein derivative solution, intradermal 1 2000 Unknown, Provider [id number] 96 [facility] ([facility]) complet ed tuberculi n skin test; purified protein derivativ e solution, intraderm al DoD influenza virus vaccine, whole virus 0 2000 [id number] 16 [place] ([facility]) complet ed influenza virus vaccine, whole virus DoD hepatitis A vaccine, adult dosage 2 1999 [id number] 52 Merck (MSD) complet ed hepatitis A vaccine, adult dosage DoD hepatitis B vaccine, adult dosage 3 1999 [id number] 43 Merck (MSD) complet ed hepatitis B vaccine, adult dosage DoD tuberculin skin test; purified protein derivative solution, intradermal 1 1999 Unknown, Provider [id number] 96 [facility] (CON) complet ed tuberculi n skin test; purified protein derivativ e solution, intraderm al DoD influenza virus vaccine, whole virus 0 [id number] 16 [facility] ([facility]) complet ed influenza virus vaccine, whole virus DoD typhoid vaccine, parenteral, other than acetone-kille d, dried 0 1998 [id number] 41 Sanofi Pasteur ([facility]) complet ed typhoid vaccine, parentera l, other than acetone-k illed, dried DoD hepatitis A vaccine, adult dosage 1 1998 [id number] 52 Merck (MSD) complet ed hepatitis A vaccine, adult dosage DoD hepatitis B vaccine, adult dosage 2 1998 [id number] 43 Merck (MSD) complet ed hepatitis B vaccine, adult dosage DoD measles, mumps and rubella virus vaccine 0 1998 UNKNOWN 03 Unknown (UNK) comple t ed measles, mumps and rubella virus vaccine DoD hepatitis B vaccine, adult dosage 1 1998 [id number] 43 Merck (MSD) complet ed hepatitis B vaccine, adult dosage DoD tuberculin skin test; purified protein derivative solution, intradermal 1 1998 Unknown, Provider [id number] 96 [facility] (CON) complet ed tuberculi n skin test; purified protein derivativ e solution, intraderm al DoD influenza virus vaccine, whole virus 0 [id number] 16 [facility] (CON) complet ed influenza virus vaccine, whole virus DoD influenza virus vaccine, whole virus 0 1996 16 () complet ed influenza virus vaccine, whole virus DoD yellow fever vaccine 0 1996 37 () complet ed yellow fever vaccine DoD influenza virus vaccine, whole virus 0 1995 16 Transcribed (TRS) complet ed influenza virus vaccine, whole virus DoD typhoid vaccine, parenteral, acetone-kille d, dried ([employer]) 2 1995 53 () complet ed typhoid vaccine, parentera l, acetone-k illed, dried ([place]. ) DoD influenza virus vaccine, whole virus 0 1994 16 Transcribed (TRS) complet ed influenza virus vaccine, whole virus DoD influenza virus vaccine, whole virus 0 1993 16 Transcribed (TRS) complet ed influenza virus vaccine, whole virus DoD influenza virus vaccine, whole virus 0 1992 16 Transcribed (TRS) complet ed influenza virus vaccine, whole virus DoD tuberculin skin test; purified protein derivative solution, intradermal 1 1992 Unknown, Provider [id number] [place] [address] (CON) complet ed tuberculi n skin test; purified protein derivativ e solution, intraderm al DoD typhoid vaccine, parenteral, other than acetone-kille d, dried 0 1992 41 Transcribed (TRS) complet ed typhoid vaccine, parentera l, other than acetone-k illed, dried DoD influenza virus vaccine, whole virus 0 1991 16 Transcribed (TRS) complet ed influenza virus vaccine, whole virus DoD trivalent poliovirus vaccine, live, oral 0 1991 02 () complet ed trivalent polioviru s vaccine, live, oral DoD tetanus and diphtheria toxoids, adsorbed, preservative free, for adult use (2 Lf of tetanus toxoid and 2 Lf of diphtheria toxoid) 0 1991 09 () complet ed tetanus and diphtheri a toxoids, adsorbed, preservat elyssa free, for adult use (2 Lf of tetanus toxoid and 2 Lf of diphtheri a toxoid) DoD Encounters Combined list of: 1) Encounters from Department of Veterans Affairs facilities going back up to thelast 18 months. 2) Encounters from the Department of Defense facilities going back up to 280 months. Location Location Details Encounter Type Encounter Number Reason For Visit Attending Provider ADM Date DC Date Status Disposition Source Theater Facility OUTPATIENT [id number] 07/11 Released w/o Limitations [facility] OUTPATIENT [id number] 12/12 Released w/o Limitations Theater Fac[facility] [place] [facility] [place] [address](AFN G 104 Med Sq-FM) OUTPATIENT [id number] Notes Entered by: JT LEDESMA 07 Sep 2017 1457 ------- ------- ------- ------- -- PHAJT CERVANTES 09/07 [facility]itations [facility] [place] [place] [address](A FNG 104 Med Sq-FM) [place] [address](AFN G 104 Med Sq-FM) OUTPATIENT [id number] Notes Entered by: RIKKI HESS 08 Jul 2018 0826 ------- ------- ------- ------- -- LISA CERNA 07/08 [facility]itations [facility] [place] [address](A FNG 104 Med Sq-FM) [place] [address](AFN G 104 Med Sq-FM) OUTPATIENT [id number] 1 Notes Entered by: JT LEDESMA 19 Sep 2019 0844 ------- ------- ------- ------- -- LIZABETHQ JT LEDESMA 09/19 Released w/o Limitations [facility] [place] [address](A FNG 104 Med Sq-FM) [place] [address](AFN G 104 Med Sq-FM) OUTPATIENT [id number] 6 Notes Entered by: JT LEDESMA 12 Dec 2019 1245 ------- ------- ------- ------- -- PHAQ JT LEDESMA 12/12 [facility]ased w/o Limitations [facility] [place] [address](A FNG 104 Med Sq-FM) [place] [address](AFN G 104 Med Sq-FM) OUTPATIENT [id number] 8 Notes Entered by: RIKKI HESS 19 Feb 2020 1446 ------- ------- ------- ------- -- Status of injury report LISA HESS 02/18 Released with Work/Duty Limitations [facility] [place] [address](A FNG 104 Med Sq-FM) [place] [address](AFN G 104 Med Sq-FM) TELE CONSULT [id number] Notes Entered by: JT LEDESMA 15 May 2020 1046 ------- ------- ------- ------- -- JT Mendoza 05/15 [facility] [place] [address](A FNG 104 Med Sq-FM) [place] [address](AFN G 104 Med Sq-FM) TELE CONSULT [id number] Notes Entered by: JT LEDESMA 13 Jun 2020 1443 ------- ------- ------- ------- -- RTD note TJ LEDESMA 06/13 [facility] [place] [address](A FNG 104 Med Sq-FM) [facility] Outpatient Encounter [id number] 08/25 [place] [facility] Outpatient Encounter [id number] Diagnos is: ICD-10- CM F32.A Depress ion, unspeci fied
ESTELITA COWAN 08/29 [facility] Outpatient Encounter [id number] 08/30 [facility] OFFICE O/P NEW LOW 30-44 MIN [id number] Diagnos is: ICD-10- CM R06.83 Snoring
Annetta DIAL MAICOL J 08/30 [facility] En[facility] [id number] 11/02 [facility] En[facility] [id number] 12/07 [facility] En[facility] [id number] 01/04 [facility] En[facility] [id number] 01/08 [facility] En[facility] [id number] 01/10 [facility] [id number] Diagnos is: ICD-10- CM Z02.89 Encount er for other adminis trative examina tions<b r/> JACKELYN DUNN A 02/01 [facility] En[facility] [id number] YESSI KANG ISTOPHER E 02/01 [facility] En[facility] [id number] Diagnos is: ICD-10- CM F43.10 Post-tr aumatic stress disorde r, unspeci fied
FEARING,UT CHAEL A 02/13 [facility] En[facility] [id number] FEARINGJANELLE 02/13 [facility] En[facility] [id number] 04/06 [facility] En[facility] [id number] 04/06 [facility] COMPRE OPH EXAM NEW PT 1/> [id number] Diagnos is: ICD-10- CM H52.4 Presbyo judi<br/ > GIO BARRON Y J 08/15 [facility] FIT SPECTACLES MONOFOCAL [id number] Diagnos is: ICD-10- CM Z46.0 Encount er for fit/adj st of spectac les and contact lenses< br/> TALISHA BARRONE Y J 08/15 [facility] En[facility] [id number] 11/01 [facility] Encounter [id number] 11/02 [facility] Out[facility] Encounter [id number] 11/18 [facility] Procedures Combined list of: 1) Procedures from Department of Veterans Affairs facilities going back up to thelast 18 months, not all VA non-surgical procedures are included; 2) All procedures from the Department of Defense facilities. Procedure Procedure Type Code Date Perfomer Comments Sour e PSYCHIATRIC DIAGNOSTIC EVALUATION 04/05/2018 [facility] Psychiatric Diagnostic Evaluation Psychiatric Diagnostic Evaluation 36761 04/05/2018 [facility] Psychometric Emotional / Behavioral A e ment Psychometric Emotional / Behavioral Assessment 91090 04/05/2018 [facility] Social History Combined list of available smoking, tobacco, and other social history from Department of Defense and Veterans Affairs facilities. Social History Type Response Date Comment Sourc e Tobacco smoking status NHIS VA-TOBACCO NEVER USED 08/29/2023 [facility] This section is an empty social history section. [facility] Plan of Care List of future care activities from Department of Veterans Affairs facilities. Additional future care activities may be listed in the Assessment and Plan section. Date/Time Care Activity Care Activity Detail Facili ty 12/03/2024 AMBULATORY - PSYCHIATRY AMBULATORY - PSYC HIATRY [facility] [place] [facility] 12/13/2024 AMBULATORY - PSYCHIATRY AMBULATORY - PSYC HIATRY [facility] [place] [facility] 11/02/2024 Laboratory - Supervisor Spring Up ry Order HEPATITIS B SURFACE ANTIBODY (HBsAb)-WH BLOOD (SST-SERUM) [facility] [place] 11/02/2024 Laboratory - Supervisor Spring Up ry Order LIPID PANEL FASTING BLOOD (SST-SERUM) SP [facility] [place] [facility] 11/02/2024 Laboratory - Supervisor Spring Up ry Order BASIC METABOLIC PANEL (fasting) BLOOD (SST-SERUM) [facility] [place] [facility] 11/02/2024 Laboratory - Supervisor Spring Up ry Order LIVER FUNCTION BLOOD (SST-SERUM) [facility] [place] [facility] 11/02/2024 Laboratory - Supervisor Spring Up ry Order CBC BLOOD (LAV-BLOOD) [facility] [place] [facility] 11/06/2024 Laboratory - Supervisor Spring Up ry Order PSA BLOOD (SST-SERUM) [facility] [place] [facility] 11/20/2024 Consult Order MENTAL HEALTH SERVICES/[facility] OUTPT Cons Material [employer] [facility] 11/20/2024 Consult Order PSYCHIATRIC MEDI CATION SOPC OUTPT Cons Material Stockkeeper [facility]
--- OUTSIDE RECORDS SUMMARY | 2024-11-23 14:07 | XMS_ITS ---
Author Name [facility] [facility] [place] [facility] [place] Address [address] [place] [address] Care Team Providers Care Internet Salesperson Name Role Phone BIRD DIAL [facility] Insurance Providers: All historical and current Section [...] PRESCRIPT ION RX Oct 31, 2022 THPRX [id number] [phone] TOY, TEGAN PATIENT [facility] HEALTH PLAN LUNA HOFFMANN E Oct 31, 2022 [id number] [phone] TOY, TEGAN PATIENT [facility] SIRIA HOFFMANN E Oct 31, 2022 [id number] [phone] TEGAN YEAGER PATIENT Selected Encounter This section includes the information on record at [place] for the Encounter. Date/Time Encounter Type Encounter Description Reason Pro vider Source Nov 02, 2024 11:26 AM Outpatient Encounter PRIMARY CARE/MEDICINE IHE Encounter Template Text not used by [place] Plan of Treatment: Future Appointments (+ 6 months) and Future Tests (+/- 45 days) The Plan of Treatment section includes future care activities for the patient from all [place] [facility]. This section includes future appointments and future orders which are active, pending or scheduled. Future Appointments This section includes appointments that were scheduled to occur 6 months from the date of the Encounter, up to a maximum of 20 appointments. The data comes from all [facility] facilities. Appointment Date/Time Appointment Type Appointme nt Facility Name Dec 03, 2024 09:00 AM AMBULATORY - PSYCHIATRY [facility] Dec 13, 2024 11:00 AM AMBULATORY - PSYCHIATRY [facility] Active, Pending, and Scheduled Orders This section includes a listing of several types of active, pending, and scheduled orders, including clinic medications orders, diagnostic test orders, procedure orders and consult orders; where the start date of the order is 45 days before the date of the Encounter or 45 days after the date of theEncounter. The data comes from all [facility]. Test Date/Time Test Type Test Details Facility Name Nov 02, 2024 12:00 AM Laboratory - Chemistry Order HEPATITIS B SURFACE ANTIBODY (HBsAb)-WH BLOOD (SST-SERUM) [facility] Nov 02, 2024 12:00 AM Laboratory - Chemistry Order LIPID PANEL FASTING BLOOD (SST-SERUM) [facility] Nov 02, 2024 12:00 AM Laboratory - Chemistry Order BASIC METABOLIC PANEL (fasting) BLOOD (SST-SERUM) [facility] Nov 02, 2024 12:00 AM Laboratory - Chemistry Order LIVER FUNCTION BLOOD (SST-SERUM) [facility] Nov 02, 2024 12:00 AM Laboratory - Chemistry Order CBC BLOOD (LAV-BLOOD) [facility] Nov 06, 2024 12:00 AM Laboratory - Chemistry Order PSA BLOOD (SST-SERUM) [facility] Nov 20, 2024 01:56 PM Consult Order MENTAL HEALTH SERVICES/SPOPC OUTPT Cons Divorce Lawyer's Choice [facility] Nov 20, 2024 02:37 PM Consult Order PSYCHIATRIC MEDICATION SOPC OUTPT Cons Divorce Lawyer's Choice [facility] Social History: Smoking Status (Most current) and Tobacco Use (All prior to encounter date) This section includes the most current, and the historical, smoking and tobacco- related health factors from the [place] facility where the Encounter took place. Current Smoking Status This section includes the most current smoking, or tobacco-related health factor, from the [place] facility where the Encounter took place. Date/Time Current Smoking Status Comment Facil ity Aug 29, 2023 03:07 PM VA-TOBACCO NEVER USED [facility] Encounter Notes: All associated encounter notes This section contains the clinical notes associated to the Encounter. Date/Time Encounter Note(s) Provider Source Nov 02, 2024 11:26 AM PREVENTIVE MEDICIN E NURSING NOTE: LOCAL TITLE: CLINICAL REMINDERS/NURSING STANDARD TITLE: PREVENTIVE MEDICINE NURSING NOTE DATE OF NOTE: NOV 02, 2024@11:26 ENTRY DATE: NOV 02, 2024@11:26:27 AUTHOR: RUTHY ALCANTAR EXP COSIGNER: URGENCY: STATUS: COMPLETED CLINICAL REMINDERS/NURSING Has ADDENDA Please call Vet to advise that he has orders for blood work prior to appt on Hepatitis B Serology/Immunization: see orders Lipid Screening: Lipid profile ordered at this encounter. /jaret Alcantar RN, BSN Primary Care Nurse Supervisor [employer] Signed: 11/02/2024 11:28 Receipt Acknowledged By: 11/02/2024 11:33 /xiomara/ Alfredo Root, Health Passenger Conductor VACUUM WORKER,PRIMARY CARE 11/02/2024 ADDENDUM STATUS: COMPLETED vet was called, a message was left on the answering machine, inform vet he has an appt with PCP on 11-15-2024@1530,also labs have been ordered,any questions vet may use the call back # from message. /jaret Root, Health Passenger Conductor VACUUM WORKER,PRIMARY CARE Signed: 11/02/2024 11:34 [address]AR [facility]
--- OUTSIDE RECORDS SUMMARY | 2024-11-23 14:07 | XMS_ITS | Encounter Summary ---
Author Name [facility] [place] [facility] [place] [facility] [place] Address [address] [place] [address] Care Team Providers Care Front Counter Clerk Name Role Phone BIRD SANCHEZ Primary Care Provider [facility] Insurance Providers: All historical and [...] PRESCRIPT ION RX Oct 31, 2022 THPRX [id number] [phone] SANDY YEAGERON PATIENT [facility] HEALTH PLAN RAEGAN HOFFMANN E Oct 31, 2022 [id number] [phone] TEGAN YEAGER PATIENT [facility] HEALTH PL[facility] SIRIA HOFFMANN E Oct 31, 2022 [id number] [phone] TOY, TEGAN PATIENT Selected Encounter This section includes the information on record at [place] for the Encounter. Date/Time Encounter Type Encounter Description Reason Pro vider Source Nov 18, 2024 05:52 AM Outpatient Encounter TELEPHONE TRIAGE IHE Encounter Template Text not used by [facility] Plan of Treatment: Future Appointments (+ 6 months) and Future Tests (+/- 45 days) The Plan of Treatment section includes future care activities for the patient from all [place] [facility]. This section includes future appointments and future orders which are active, pending or scheduled. Future Appointments This section includes appointments that were scheduled to occur 6 months from the date of the Encounter, up to a maximum of 20 appointments. The data comes from all [facility] facilities. Appointment Date/Time Appointment Type Appointme nt Facility Name Dec 03, 2024 09:00 AM AMBULATORY - PSYCHIATRY [facility] Dec 13, 2024 11:00 AM AMBULATORY PSYCHIATRY [facility] Active, Pending, and Scheduled Orders This section includes a listing of several types of active, pending, and scheduled orders, including clinic medications orders, diagnostic test orders, procedure orders and consult orders; where the start date of the order is 45 days before the date of the Encounter or 45 days after the date of theEncounter. The data comes from all [facility]. Test Date/Time Test Type Test Details Facility Name Nov 02, 2024 12:00 AM Laboratory - Chemistry Order HEPATITIS B SURFACE ANTIBODY (HBsAb)-WH BLOOD (SST-SERUM) [facility] Nov 02, 2024 12:00 AM Laboratory - Chemistry Order LIPID PANEL FASTING BLOOD (SST-SERUM) [facility] Nov 02, 2024 12:00 AM Laboratory - Chemistry Order BASIC METABOLIC PANEL (fasting) BLOOD (SST-SERUM) [facility] Nov 02, 2024 12:00 AM Laboratory - Chemistry Order LIVER FUNCTION BLOOD (SST-SERUM) [facility] Nov 02, 2024 12:00 AM Laboratory - Chemistry Order CBC BLOOD (LAV-BLOOD) [facility] Nov 06, 2024 12:00 AM Laboratory - Chemistry Order PSA BLOOD (SST-SERUM) [facility] Nov 20, 2024 01:56 PM Consult Order MENTAL HEALTH SERVICES/SPOPC OUTPT Cons Frontend Engineer's Choice [facility] Nov 20, 2024 02:37 PM Consult Order PSYCHIATRIC MEDICATION SOPC OUTPT Cons Frontend Engineer's Choice [facility] Social History: Smoking Status (Most current) and Tobacco Use (All prior to encounter date) This section includes the most current, and the historical, smoking and tobacco- related health factors from the [place] facility where the Encounter took place. Current Smoking Status This section includes the most current smoking, or tobacco-related health factor, from the [place] facility where the Encounter took place. Date/Time Current Smoking Status Comment Efrem roland Aug 29, 2023 03:07 PM VA-TOBACCO NEVER USED [place] [facility] Encounter Notes: All associated encounter notes This section contains the clinical notes associated to the Encounter. Date/Time Encounter Note(s) Provider Source Nov 18, 2024 05:52 AM RN PROGRESS NOTE: LOCAL TITLE: CCC: CLINICAL TRIAGE STANDARD TITLE: RN PROGRESS NOTE DATE OF NOTE: NOV 18, 2024@05:52:57 ENTRY DATE: NOV 18, 2024@05:52:57 AUTHOR: MCKENZIE HUSTON COSIGNER: URGENCY: STATUS: COMPLETED CCC: CLINICAL TRIAGE Has ADDENDA Patient Demographics Patient Name: TEGAN YEAGER Patient Primary Address: [address] [place] [address] Patient Primary Phone: [phone] Patient : 1975 Patient Age: 49 Caller/Recipient Relation to Patient: Self Caller Name: TEGAN YEAGER Emergency Contact: ELLY YEAGER Triage Summary Conducted triage/discussed symptoms Utilized the Triage Tool: Yes Chief Complaint: Depression System WHEN: Within 3 Days Nurse's Recommendation / WHEN: Within 24 Hours System WHERE: Clinic Nurse's Recommendation / WHERE: ED [facility] WHEN/WHERE modifier reason: Other Other - Modifiers: WHEN hours, no more VISN 1 virtual appt today Patient Disposition Patient/Caregiver agrees to plan of care: Yes Nursing Plan and Disposition Referred patient to higher level of care Instructed to go to Emergency Room (ER) Other Other Description: due to WHEN hours, also no more VISN 1 OUTSEWER appt today Other course(s) of action Generated msg to PACT/Provider Provided guidance for worsening symptoms: *Caller/Patient* advised to call facilities [place] Clinical Contact Center or seek immediate medical attention for new or worsening symptoms Nurse Summary Nurse Summary: 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 and is having worsening anxiety and depression which he has suffered from for a long time Feels lack of sleep is related to his PTSD, 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 Has tried Melatonin gummies, Benadryl 50mg, hot shower, doing the usual things which helps him to relax but nothing is helping Reports usually having suicidal thoughts, did not get into it when asked more about it, but reports he has no plans or intention to hurt/kill himself or anyone else 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 h/o depression, does not take any meds for depression or anxiety, does not have a mental health care provider at the [place] but reports he sees a counselor Tierra at [facility] Denies [place], drug or alcohol abuse Advised to seek medical care within 24 hours at the local ER (due to WHEN hours, also [facility] does not have ER, [facility] about [facility] a [facility] hours away from [facility]) Provided with the [facility] notification number and advised to call within 72 hours of service Also discussed [facility] urgent care as an additional option, provided with the [facility] pharmacy number Seek emergency care for new or worsening symptoms Call back the CCC for further assistance Applicable homecare measures and patient education provided as per Hernandez protocol Clinical Contact Center Codes Clinic/Location: V1 C[facility] PHONE [facility] RN Decision Support System Output: Triage Complete Triage Date: 11/18/2024, 05:40 AM Triage Note: Decision Support Tool Used: TXCC Phone Triage Sun, 18 Nov 2024 10:16:13 +0000 [facility] Demographics 49 y/o Male Results CC: Depression Software suggested: Within 3 Days Software suggested follow-up location: Clinic, consider [facility] care Values and Measures Duration of CC: 5 Years Positive Responses HPI: depressed mood, constant HPI: depressed mood, severe HPI: depressed mood, worsening HPI: suicidal thoughts, within the past month PMH: depression Negative Responses Denies: HPI: contemplated how they might commit suicide Denies: HPI: feels life is no longer meaningful Denies: HPI: has plans to injure another person Denies: HPI: homicidal thoughts Denies: HPI: intent to act on suicidal thoughts Denies: HPI: reports access to firearm Denies: HPI: suicidal intent and suicide planning Denies: HPI: suicide planning and preparatory behavior, at some point during lifetime Denies: HPI: suicide planning and preparatory behavior, within past 3 months Denies: HPI: symptoms triggered by of relative Denies: HPI: wished you were or could go to sleep and not wake up Denies: MEDS: antidepressant Denies: PMH: prior suicide attempt Denies: SOC: drug abuse Denies: SOC: ETOH use Denies: SOC: patient lives alone IMPORTANT: This note was created by [facility] Clinical Contact Center staff. Please do not alert the staff member by adding them as a signer for future communications. Alerts are not monitored by this user. /es/ MCKENZIE HUSTON Signed: 11/18/2024 05:52 Receipt Acknowledged By: 11/20/2024 14:57 /es/ Bird Sanchez DNP, U.[place]. REPRESENTATIVE-BC, CNL Primary Care Nurse Practitioner 11/20/2024 15:07 /es/ MARCO RIVERA Registered Nurse for AXEL LEMUS 11/20/2024 ADDENDUM STATUS: COMPLETED I reached out to Tegan- he described as above. Denies any SI. Has had trouble sleeping most of his life he said, but since losing his job, he has been under increased stress and has had increased difficulty sleeping. He went to the [place] ED recently to get help with sleep, and they prescribed Trazodone 50 mg for him. He reports that it took away the anxiety and depression he was feeling, but it did not give him a full nights sleep- he did get about 4 hours, and then took melatonin gummy, and got another 1-2 hours. He has good sleep hygiene- dark room, reads, warm bath, yoga. He seens Tierra at the [facility], and he may see her again tomorrow, but next scheduled appointment is in 2 weeks. He agreed to a mental health intake/medication prescriber here at the [facility]. I told him I would place the consult today, but it will be some time before he is seen. In the meantime, I encouraged him to utilize his therapist and if SI develops, to call [phone] or return to the [place] ED for crisis eval. I also encouraged him to reach out to PCP to see if he can manage Trazodone dose to help him sleep until he is seen in the clinic here. I will reach out to MH manager brand to see if his MH intake can be expedited. /es/ [facility] DOBBS Registered Nurse Signed: 11/20/2024 13:53 MCKENZIE HUSTON CNTRL TRN [facility]
== END 2024-11-23 16:05 | disposition home or self-care (01) ==
LOC: HO.HMCC 11:59
PROVIDERS: PCP Internal Medicine; Visit Provider Internal Medicine
DX: F41.8 Other specified anxiety disorders (principal)

== ENCOUNTER → 2024-11-23 11:59 | Outpatient (BNVA) | payer OTHER, SELFPAY | PROVIDERS: PCP Internal Medicine; Visit Provider Internal Medicine | DX: F41.8 Other specified anxiety disorders (principal) | CPT/HCPCS: 96127 ==

== ENCOUNTER 2024-12-18 09:39 | Outpatient (AMB) | payer OTHER, SELFPAY ==
--- OUTSIDE RECORDS SUMMARY | 2024-12-18 10:25 | XMS_ITS | Encounter Summary ---
Author Name [facility] [place] [facility] [place] Address [address] [place] [id number] Care Team Providers Care Computer Field Technician Name Role Phone BIRD DIAL [facility] Insurance Providers: All historical and current Section [...] PRESCRIPT ION RX Oct 31, 2022 THPRX [id number] [id number] TOY, TEGAN PATIENT [facility] HEALTH PLAN KEO HOFFMANN E Oct 31, 2022 [id number] [phone] TEGAN YEAGER PATIENT [facility] TON [facility]OFF[facility] E Oct 31, 2022 [id number] [phone] TEGAN YEAGER PATIENT Selected Encounter This section includes the information on record at [place] for the Encounter. Date/Time Encounter Type Encounter Description Reason Provider Source Dec 13, 2024 11:00 AM OFF/OP CNSLTJ NEW/EST MOD [facility] - [place] ICD-10-CM F43.12 Post-traumatic stress disorder, chronic FAUSTO BARRIOS Encounter Template Text not used by VA Assessments - Encounter Diagnoses This section includes the primary and secondary diagnoses documented for the Encounter. Date/Time Primary/Secondary Diagnosis Diagnosis Name Provider Source Dec 13, 2024 11:51 AM PRIMARY Post-traumatic stress disorder, chronic FAUSTO BARRIOS [place] Dec 13, 2024 11:51 AM SECONDARY Alcohol abuse counseling and surveillance of alcoholic FAUSTO BARRIOS [place] Dec 13, 2024 11:51 AM SECONDARY Bulimia nervosa, moderate FAUSTO BARRIOS [place] Dec 13, 2024 11:51 AM SECONDARY Depression, unspecified FAUSTO BARRIOS [place] Plan of Treatment: Future Appointments (+ 6 months) and Future Tests (+/- 45 days) The Plan of Treatment section includes future care activities for the patient from all [place] [facility]. This section includes future appointments and future orders which are active, pending or scheduled. Future Appointments This section includes appointments that were scheduled to occur 6 months from the date of the Encounter, up to a maximum of 20 appointments. The data comes from all [facility] facilities. Appointment Date/Time Appointment Type Appointme nt Facility Name Jan 08, 2025 10:00 AM AMBULATORY - PSYCHIATRY [facility] Active, Pending, and Scheduled Orders This section includes a listing of several types of active, pending, and scheduled orders, including clinic medications orders, diagnostic test orders, procedure orders and consult orders; where the start date of the order is 45 days before the date of the Encounter or 45 days after the date of theEncounter. The data comes from all [facility]. Test Date/Time Test Type Test Details Facility Name Nov 02, 2024 12:00 AM Laboratory - Chemi stry Order HEPATITIS B SURFACE ANTIBODY (HBsAb)-WH BLOOD (SST-SERUM) [facility] Nov 02, 2024 12:00 AM Laboratory - Chemi stry Order LIPID PANEL FASTING BLOOD (SST-SERUM) [facility] Nov 02, 2024 12:00 AM Laboratory - Chemi stry Order BASIC METABOLIC PANEL (fasting) BLOOD (SST-SERUM) [facility] Nov 02, 2024 12:00 AM Laboratory - Chemi stry Order LIVER FUNCTION BLOOD (SST-SERUM) [facility] Nov 02, 2024 12:00 AM Laboratory - Chemi stry Order CBC BLOOD (LAV-BLOOD) [facility] Nov 06, 2024 12:00 AM Laboratory - Chemi stry Order PSA BLOOD (SST-SERUM) [facility] Social History: Smoking Status (Most current) and Tobacco Use (All prior to encounter date) This section includes the most current, and the historical, smoking and tobacco- related health factors from the [place] facility where the Encounter took place. Current Smoking Status This section includes the most current smoking, or tobacco-related health factor, from the [place] facility where the Encounter took place. Date/Time Current Smoking Status Comment Facil ity Dec 03, 2024 09:00 AM IN-TOBACCO NEVER USED CIGARETTES [place] Tobacco Use History This section includes a history of the smoking, or tobacco-related health factors, that were collected on or before the date of the Encounter. The data comes from the [place] facility where the Encounter took place. Date/Time Smoking Status/Tobacco Use Comment F acility Dec 03, 2024 09:00 AM IN-TOBACCO NEVER USED OTHER TYPE [place] Encounter Notes: All associated encounter notes This section contains the clinical notes associated to the Encounter. Date/Time Encounter Note(s) Provider Source Dec 13, 2024 11:00 AM TELEHEALTH CONSULT : LOCAL TITLE: CONSULT REPORT/IN VIDEO CONNECT PSYCHIATRIST NOTE STANDARD TITLE: TELEHEALTH CONSULT DATE OF NOTE: DEC 13, 2024@11:00 ENTRY DATE: DEC 13, 2024@11:00:58 AUTHOR: FAUSTO BARRIOS COSIGNER: URGENCY: STATUS: COMPLETED VA Video Connect (VVC) Standard Documentation VVC Clinician Resources Only: E911 (Emergency Call Relay Center): [phone] National Veterans Crisis Line - 988 then press #1. OMER Suicide Coordinator [phone], Ext. [phone]; Back-up Ext. [phone] [place] , Radha TELLO [phone] Introduction: Visit is being conducted by [place] [facility]. identified with 2 identifiers: [X] Full Name [X] Date of [ ] VA ID Card Emergency Plan: [place] confirmed and/or provided the following information in case of emergency or technology failure. PATIENT PHONE - PHONE NUMBER [CELLULAR] - Is patient phone number correct, if not, enter below: [employer] [place]'s phone number: TEGAN YEAGER [address], [place], [phone] [place]'s present location and address for appointment: same as above [employer] [place]'s emergency contact name and phone number: my kids mom [phone] Chyna reported that location is private and safe: Yes Informed Consent: [employer] [place] informed of the risks and benefits of Telehealth video care. [employer] [place] has the right to refuse video services. If refuses video visit, a alcz-qn-agnt visit will be scheduled. verbalized consent for this video visit: Yes [place] provided consent for any other persons present for visit: N/A If yes, who and relationship to patient: Secure visit: Visit was locked for security and privacy:Yes 60 min spent with patient, chart reviewed -- including intake note. Limits of confidentiality reviewed with pt -- Cooley warning given (I reviewed rights and limits of confidentiality, mandatory reporting situations, duty to warn and protect, ie: if treatment team finds patient to be an acute danger to themselves or others, that this information could be relayed to a court of law and presented to a clinical laboratory manager) TEGAN YEAGER is a 49 year old MALE who presents for psychiatric evaluation on this date HISTORY OF PRESENT ILLNESS: CHART REVIEW: seen for initial MH consult 12/03/24, noting: [place] is a [place] [employer] (30% for PTSD) presenting to treatment for helping addressing worsening depression, insomnia and anxiety in the wake of recent job loss. He is proud that he has not been drinking since this happened and only reports two instances of purging in this very volatile time, which he sees as progress. He has been getting treatment for PTSD, depression, and bulimia nervosa through a therapist at the [facility] but is recognizing that medication could help improve his mood and ability to cope in healtier ways. He has very recently started taking medications through his community PCP (zolpidem, lorazepam and sertraline) and is committed to no longer drinking and would also like to elimiate his episodes of purging. Political Organizer offered him the sleep EZ program, community based employment services and the relapse prevention group. He was interested in the first two and states that he will talk to his individual therapist about some of the therapy groups offered at the [facility]. Gpals: Improved sleep, depression, anxiety. He has a history of alcohol use disorder and bulimia and would like to work toward maintaining recovery from both. Sc: POST-TRAUMATIC STRESS DISORDER (30%-SC) PRESENTATION AT TIME OF INITIAL VISIT WITH MYSELF: [place] reports no prior psychiatric treatment; history of therapy for the past 6 or 7 years when I realized we had a therapist at the [facility] . Onset of symptoms after being activated following 07/11 working in [employer]. Reports chronic sleep difficulty 3-5 hours/ night, typically [place] shift; got worse after going to [place] doing 12+ hour shift. Often takes melatonin to get him back to sleep. Reports I just feel anxious. I worry about everything. I worry what my kids are going through, paperwork due, am I doing the right thing for my kids, my airmen . 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 Lost job after bringing a friend onto [facility] without permission). States his anxiety and depression and sleeplessness got acutely worse after losing his job, called [place] and referred to the ER, then got set up with [place] for care. Given Rx for sertraline it takes care of the depression pretty good ; was also given zolpidem for sleep. PSYCHIATRIC HISTORY: Hospitalizations: Patient denies. Suicide Attempts: Patient denies Violence: denies Depressive Episodes: see above Manic episodes: I'll get a lot of energy and feel happy , 1-2 days I get impulsive Trauma Hx/Symptoms: reports history of weird nightmares: forgetting my weapon, I'll see people I was deployed with. I've some dreams about things I saw. Casualties coming in. Heightened vigilance. Any noise wakes me up Eating: mostly when I'm depressed , binges ton of sweets. Crap food , self-induced purging. Occur from 2-3 days/week up to 1-2x/day. Has occurred 3x since fired; less appetite since starting sertraline Outpatient Treatment: T[facility] at [facility] for the past two years. He also saw a therapist longer ago while still in the for problems related to his marriage. Past Medication Trials: none CURRENT MEDICATIONS: started on 11/23/24 on zolpidem 10mg and lorazepam .5 mg daily, sertraline 50 mg feels wired SUBSTANCE USE HISTORY: Alcohol: history: a 1.5 liter bottle of mezcato, 1-3x/ week. Last drank Nov 24 2024 Drugs: none Tobacco: (x )none REVIEW OF SYSTEMS A focused review of systems was performed, which was unremarkable FAMILY PSYCHIATRIC HISTORY: negative SOCIAL HISTORY: Childhood was not great but not bad . He was raised in [place] by parents and with 4 younger sisters. He described his mother as very depressed and that his father would do anything to stay out of the house--and worked all the time. As a result, he would have to take care of his siblings. As far as school goes, he states that he struggled academically and thinks that he likely had ADHD. 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 His parents when he was 15. He denies any traumas. SOCIAL STATUS: 2021; 3 Kids-- ages 8, 12 and 26 HISTORY: [place] joined [employer] at age 16 in 1991 and did basic training at [place] [employer]. He followed this with [email or web address] in [place]. [facility] was originally [employer] forces after 07/11. He was deployed to [place] in 2009 and was there for 6 or 7 months. He also had deployment to [place] [facility]. Shares that the trauma that he experienced in [place]--has been working on this in psychotherapy. Discharged 2020 as an e5. 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 Looking for similar job CURRENT MEDICATIONS : Active Outpatient Medications (including Supplies): Active Non-VA Medications Status 1) Non-VA IBUPROFEN 800MG TAB 800MG BY MOUTH EVERY 8 HOURS ACTIVE NEEDED Indication: FOR PAIN 2) Non-VA MELATONIN 5MG CAP/TAB 5MG BY MOUTH AT BEDTIME ACTIVE NEEDED Indication: FOR INSOMNIA PAST MEDICAL HISTORY: Active problems - Computerized Problem List is the source for the followin. Snoring 2. Pain of bilateral knee joints 3. laceration of tendon right hand repair 4. Depression 5. Gout (SCT [id number]) 6. Insomnia 7. Kidney stone 8. Tinnitus VS/ RECENT LABS: No data available ALLERGIES:Patient has answered NKA MENTAL STATUS EXAMINATION - Appearance and behavior: Appears stated age, appropriately groomed and dressed, pleasant and cooperative - Speech and language: without impairment of rate, rhythm, inflection, volume, or fluency, without latency - Mood: as noted above - Affect: without lability or agitation, somewhat anxious/tense - Thought Process: Linear, logical; no loosening of associations or FOI - Thought Content: without delusions (paranoia, thought broadcasting, thought withdrawal, thought insertion, ideas of reference) - Perceptions: Denies auditory and visual hallucinations - IMPULSES/HARM: - Wishes to be ? no plans. I just feel hopeless, feel everyone would be better off without me - Thoughts/plan/intention of killing self? no - Homicidal ideation, plan, intent, actions: denied - Reasons for living identified: I love my kids. I would never do that to them - Lethal means assessment: NO weapons are in the home - Cognition: No noted impairment - Insight: no impairment evident - Judgment: no impairment evident INITIAL ASSESSMENT/ DIAGNOSIS AND RECOMMENDATIONS: [place] presents with a history of PTSD, depression, AUD and bulimia. No prior medication trials but recently started on sertraline with some reported improvement, though he states he feels a little wired and has more trouble falling asleep and some body jerking as he tries to sleep seems worse. He reports he stopped drinking and has reduced binge/purge episodes. He believes he has ADHD, not explored today. He can be impulsive, not clearly episodic. PLAN: will continue on sertraline. I've asked him to stop zolpidem and instead go back to trazodone. DISCUSSION: reviewed and discussed medication options: risks, side effects and alternatives understood and accepted; answered patient questions. This also included discussion of potential drug interactions with the psychiatric medication. Patient demonstrated reasonable understanding of the medication side effects and the above issues. The benefits of psychiatric medications outweigh risks for this patient. Pt consents to medication treatment RISK: no evidence of acute risk of harm to self or others. PLAN OF CARE Medications: as noted above Diagnostic Workup: - LABS: none ordered/required Referrals: 1. PC: Follow up with your PCP as scheduled. 2. Psychotherapy Referral: ( ) yes (x ) no 3. Urgent Care / PCP Referral: None needed at this time 4. Nutrition Referral/ plan for elevated BMI: ( )recommended weight loss and regular exercise ( ) n/a 5. Other Specialty Referrals: None needed at this time FOLLOW-UP: initial follow up with myself in 4 weeks; sooner if needed to Open [facility]. To schedule or change an appointment, inquire about medication refills, etc: call office number during normal office hours PREVENTION: (x ) Pt agrees to contact provider sooner if SI/HI onset or worsen ( x ) Pt agreed to adhere to [place] plan ( x ) Pt is aware of 911/ Crisis Line (988) emergency services and will utilize if needed MEDICAL NECESSITY: ( x ) improve/ prevent decline in functioning ( ) Prevent hospitalization ( ) Sustain goals ( ) Solidify new coping skills Diagnoses: Chronic post-traumatic stress disorder following combat ([facility] [id number]) - Post-traumatic stress disorder, chronic (ICD-10-CM F43.12) (Primary) Depression (SCT 64396202) - Depression, unspecified (ICD-10-CM F32.A) Bulimia nervosa (SCT [id number]) - Bulimia nervosa, moderate (ICD-10-CM F50.22) Alcohol abuse (SCT [id number]) - Alcohol abuse counseling and surveillance of alcoholic (ICD-10-CM Z71.41) /xiomara/ FAUSTO BARRIOS M.D. Signed: 12/13/2024 11:54 FAUSTO BARRIOS
--- OUTSIDE RECORDS SUMMARY | 2024-12-18 10:26 | XMS_ITS ---
Author Name [facility] [place] [facility] [place] [facility] [place] Address [address] [place] [address] Care Team Providers Care Flower Stripper Name Role Phone BIRD DIAL Primary [facility] Insurance Providers: All historical and [...] PRESCRIPT ION RX Oct 31, 2022 THPRX [id number] [phone] TOY, TEGAN PATIENT [facility] HEALTH PLAN LUNA HOFFMANN E Oct 31, 2022 [id number] [phone] TOY, TEGAN PATIENT [facility] S[facility] E Oct 31, 2022 [id number] [phone] TEGAN YEAGER PATIENT Selected Encounter This section includes the information on record at [place] for the Encounter. Date/Time Encounter Type Encounter Description Reason Provider Source Dec 12, 2024 11:17 AM COMMUNITY/WORK REINTEGRATION TELEPHONE/ VOC ASSISTANCE ICD-10-CM Z56.0 Unemployment, unspecified SREEKANTH THOMAS Encounter Template Text not used by [place] Assessments - Encounter Diagnoses This section includes the primary and secondary diagnoses documented for the Encounter. Date/Time Primary/Secondary Diagnosis Diagnosis Name Provider Source Dec 12, 2024 11:17 AM PRIMARY Unemployment, unspecified FAUSTO THOMAS [facility] Plan of Treatment: Future Appointments (+ 6 months) and Future Tests (+/- 45 days) The Plan of Treatment section includes future care activities for the patient from all [place] [facility]. This section includes future appointments and future orders which are active, pending or scheduled. Future Appointments This section includes appointments that were scheduled to occur 6 months from the date of the Encounter, up to a maximum of 20 appointments. The data comes from all [facility]. Appointment Date/Time Appointment Type Appointme nt Facility Name Dec 13, 2024 11:00 AM AMBULATORY - PSYCHIATRY [facility] Jan 08, 2025 10:00 AM AMBULATORY - PSYCHIATRY [facility] Active, Pending, and Scheduled Orders This section includes a listing of several types of active, pending, and scheduled orders, including clinic medications orders, diagnostic test orders, procedure orders and consult orders; where the start date of the order is 45 days before the date of the Encounter or 45 days after the date of theEncounter. The data comes from all [facility]. Test Date/Time Test Type Test Details Facility Name Nov 02, 2024 12:00 AM Laboratory - Chemi stry Order HEPATITIS B SURFACE ANTIBODY (HBsAb)-WH BLOOD (SST-SERUM) [facility] Nov 02, 2024 12:00 AM Laboratory - Chemi stry Order LIPID PANEL FASTING BLOOD (SST-SERUM) [facility] Nov 02, 2024 12:00 AM Laboratory - Chemi stry Order BASIC METABOLIC PANEL (fasting) BLOOD (SST-SERUM) [facility] Nov 02, 2024 12:00 AM Laboratory - Chemi stry Order LIVER FUNCTION BLOOD (SST-SERUM) [facility] Nov 02, 2024 12:00 AM Laboratory - Chemi stry Order CBC BLOOD (LAV-BLOOD) [facility] Nov 06, 2024 12:00 AM Laboratory - Chemi stry Order PSA BLOOD (SST-SERUM) SP [facility] Social History: Smoking Status (Most current) [...] 29, 2023 03:07 PM VA-TOBACCO NEVER USED [facility] Encounter Notes: All associated encounter notes This section contains the clinical notes associated to the Encounter. Date/Time Encounter Note(s) Provider Source Dec 12, 2024 11:17 AM VOCATIONAL REHABILITATION CONSULT: [facility] TITLE: CONSULT REPORT/VOCATIONAL ASSESSMENT STANDARD TITLE: VOCATIONAL REHABILITATION CONSULT DATE OF NOTE: DEC 12, 2024@11:17 ENTRY DATE: DEC 12, 2024@11:18:03 AUTHOR: MAEGAN THOMAS COSIGNER: URGENCY: STATUS: COMPLETED VRS spoke to regarding [facility] services and was found appropriate for intake. A meeting was scheduled for Thursday 12/14 /xiomara/ FAUSTO BIRD OPERATING ROOM TECHNICIAN Signed: 12/12/2024 11:18 FAUSTO THOMAS [facility]
--- OUTSIDE RECORDS SUMMARY | 2024-12-18 10:26 | XMS_ITS | Encounter Summary ---
Author Name [facility] Address [address] [place] [address] Care Team Providers Care Nipple Maker Name Role Phone BIRD DIAL Primary Care Provider [facility] Insurance Providers: All historical and current [...] PRESCRIPT ION RX Oct 31, 2022 THPRX [id number] [phone] TOY, TEGAN PATIENT [facility] LUNA HOFFMANN E Oct 31, 2022 [id number] [phone] TOY, TEGAN PATIENT [facility] SIRIA HOFFMANN E Oct 31, 2022 [id number] [phone] TEGAN YEAGER PATIENT Selected Encounter This section includes the information on record at MD for the Encounter. Date/Time Encounter Type Encounter Description Reason Provider Source Dec 04, 2024 03:28 PM COMMUNITY/WORK REINTEGRATION TELEPHONE/ VOC ASSISTANCE ICD-10-CM Z56.0 Unemployment, unspecified SREEKANTH THOMAS Encounter Template Text not used by MD Assessments - Encounter Diagnoses This section includes the primary and secondary diagnoses documented for the Encounter. Date/Time Primary/Secondary Diagnosis Diagnosis Name Provider Source Dec 04, 2024 03:28 PM PRIMARY Unemployment, unspecified FAUSTO THOMAS [facility] Plan of Treatment: Future Appointments (+ 6 months) and Future Tests (+/- 45 days) The Plan of Treatment section includes future care activities for the patient from all [facility]. This section includes future appointments and future orders which are active, pending or scheduled. Future Appointments This section includes appointments that were scheduled to occur 6 months from the date of the Encounter, up to a maximum of 20 appointments. The data comes from all [facility]. Appointment Date/Time Appointment Type Appointme nt Facility Name Dec 13, 2024 11:00 AM AMBULATORY - PSYCHIATRY [facility] Jan 08, 2025 10:00 AM AMBULATORY - PSYCHIATRY [facility] Active, Pending, and Scheduled Orders This section includes a listing of several types of active, pending, and scheduled orders, including clinic medications orders, diagnostic test orders, procedure orders and consult orders; where the start date of the order is 45 days before the date of the Encounter or 45 days after the date of theEncounter. The data comes from all [facility]. Test Date/Time Test Type Test Details Facility Name Nov 02, 2024 12:00 AM Laboratory - Chemi stry Order HEPATITIS B SURFACE ANTIBODY (HBsAb)-WH BLOOD (SST-SERUM) [facility] Nov 02, 2024 12:00 AM Laboratory - Chemi stry Order LIPID PANEL FASTING BLOOD (SST-SERUM) [facility] Nov 02, 2024 12:00 AM Laboratory - Chemi stry Order BASIC METABOLIC PANEL (fasting) BLOOD (SST-SERUM) [facility] Nov 02, 2024 12:00 AM Laboratory - Chemi stry Order LIVER FUNCTION BLOOD (SST-SERUM) [facility] Nov 02, 2024 12:00 AM Laboratory - Chemi stry Order CBC BLOOD (LAV-BLOOD) [facility] Nov 06, 2024 12:00 AM Laboratory - Chemi stry Order PSA BLOOD (SST-SERUM) SP [facility] Social History: Smoking Status (Most current) and Tobacco Use (All prior to encounter date) This section includes the most current, and the historical, smoking and tobacco- related health factors from the [facility] facility where the Encounter took place. Current Smoking Status This section includes the most current smoking, or tobacco-related health factor, from the [facility] facility where the Encounter took place. Date/Time Current Smoking Status Comment Facil ity Aug 29, 2023 03:07 PM VA-TOBACCO NEVER USED [facility] Encounter Notes: All associated encounter notes This section contains the clinical notes associated to the Encounter. Date/Time Encounter Note(s) Provider Source Dec 04, 2024 03:28 PM VOCATIONAL REHABILITATION CONSULT: [facility] TITLE: CONSULT REPORT/VOCATIONAL ASSESSMENT STANDARD TITLE: VOCATIONAL REHABILITATION CONSULT DATE OF NOTE: DEC 04, 2024@15:28 ENTRY DATE: DEC 04, 2024@15:28:44 AUTHOR: MAEGAN THOMAS COSIGNER: URGENCY: STATUS: COMPLETED VRS spoke to on the phone to discuss [facility] services and talk about the program to see if would like to engage for weekly/bi-weekly vocational supports. stated I'm not entirely sure right now and I'm awaiting a psych eval to see what I need to do to mitigate my mental health. [facility] provided support for the in prioritizing their mental health at this time. continued to be fairly ambivalent about working together at the moment and stated Im ok financially and not in dire straits at the moment. VRS provided some additional support explaining that they will not pressure them into the program however will be available if/when the time comes they are ready to engage. The has the VRS direct work cell and is encouraged to reach out when ready. The thanked the VRS and said they will reach out at a later time. /xiomara/ FAUSTO BIRD SHEETMETAL PATTERNMAKER Signed: 12/04/2024 15:39 FAUSTO THOMAS [facility]
--- OUTSIDE RECORDS SUMMARY | 2024-12-18 10:26 | XMS_ITS | Encounter Summary ---
Author Name [facility] Organization [facility] Address [address] [place] [id number] Care Team Providers Care Bagger Meat Name Role Phone BIRD DIAL Primary Care Provider [facility] Insurance Providers: All historical and current Section [...] PRESCRIPT ION RX Oct 31, 2022 THPRX [id number] TEGAN YEAGER PATIENT [facility] SIRIA HOFFMANN E Oct 31, 2022 [id number] [phone] TEGAN YEAGER PATIENT [facility] TON HOFFMANN E Oct 31, 2022 [id number] [phone] TOY, TEGAN PATIENT Selected Encounter This section includes the information on record at [place] for the Encounter. Date/Time Encounter Type Encounter Description Reason Provider Source Dec 03, 2024 09:00 AM PSYCH DIAGNOSTIC EVALUATION [facility] - IND ICD-10-CM F32.A Depression, unspecified MCDANNALD,CHR ISTINE G IHE Encounter Template Text not used by [facility] Assessments - Encounter Diagnoses This section includes the primary and secondary diagnoses documented for the Encounter. Date/Time Primary/Secondary Diagnosis Diagnosis Name Provider Source Dec 03, 2024 12:48 PM PRIMARY Depression, unspecified SHIRA FUNG [facility] Dec 03, 2024 12:48 PM SECONDARY Alcohol dependence, in remission SHIRA FUNG [facility] Dec 03, 2024 12:48 PM SECONDARY Bulimia nervosa, unspecified SHIRA FUNG [facility] Dec 03, 2024 12:48 PM SECONDARY Post-traumatic stress disorder, chronic SHIRA FUNG [facility] Plan of Treatment: Future Appointments (+ 6 months) and Future Tests (+/- 45 days) The Plan of Treatment section includes future care activities for the patient from all [facility]. This section includes future appointments and future orders which are active, pending or scheduled. Future Appointments This section includes appointments that were scheduled to occur 6 months from the date of the Encounter, up to a maximum of 20 appointments. The data comes from all [facility]. Appointment Date/Time Appointment Type Appointme nt Facility Name Dec 13, 2024 11:00 AM AMBULATORY - PSYCHIATRY [facility] Jan 08, 2025 10:00 AM AMBULATORY PSYCHIATRY [facility] Active, Pending, and Scheduled Orders This section includes a listing of several types of active, pending, and scheduled orders, including clinic medications orders, diagnostic test orders, procedure orders and consult orders; where the start date of the order is 45 days before the date of the Encounter or 45 days after the date of theEncounter. The data comes from all [facility]. Test Date/Time Test Type Test Details Facility Name Nov 02, 2024 12:00 AM Laboratory - Chemi stry Order HEPATITIS B SURFACE ANTIBODY (HBsAb)-WH BLOOD (SST-SERUM) [facility] Nov 02, 2024 12:00 AM Laboratory - Chemi stry Order LIPID PANEL FASTING BLOOD (SST-SERUM) [facility] Nov 02, 2024 12:00 AM Laboratory - Chemi stry Order BASIC METABOLIC PANEL (fasting) BLOOD (SST-SERUM) [facility] Nov 02, 2024 12:00 AM Laboratory - Chemi stry Order LIVER FUNCTION BLOOD (SST-SERUM) [facility] Nov 02, 2024 12:00 AM Laboratory - Chemi stry Order CBC BLOOD (LAV-BLOOD) [facility] Nov 06, 2024 12:00 AM Laboratory - Chemi stry Order PSA BLOOD (SST-SERUM) [facility] Social History: Smoking Status (Most current) and Tobacco Use (All prior to encounter date) This section includes the most current, and the historical, smoking and tobacco- related health factors from the [facility] where the Encounter took place. Current Smoking Status This section includes the most current smoking, or tobacco-related health factor, from the NE facility where the Encounter took place. Date/Time Current Smoking Status Comment Facil ity Dec 03, 2024 09:00 AM NE-TOBACCO NEVER USED CIGARETTES [facility] Tobacco Use History This section includes a history of the smoking, or tobacco-related health factors, that were collected on or before the date of the Encounter. The data comes from the [facility] where the Encounter took place. Date/Time Smoking Status/Tobacco Use Comment F acility Dec 03, 2024 09:00 AM NE-TOBACCO NEVER USED OTHER TYPE [facility] Encounter Notes: All associated encounter notes This section contains the clinical notes associated to the Encounter. Date/Time Encounter Note(s) Provider Source Dec 03, 2024 08:58 AM MENTAL HEALTH CONS ULT: [facility] TITLE: CONSULT REPORT/UNIFORM OUTPATIENT MENTAL HEALTH ASS STANDARD TITLE: MENTAL HEALTH CONSULT DATE OF NOTE: DEC 03, 2024@08:58 ENTRY DATE: DEC 03, 2024@08:58:47 AUTHOR: VANDANA FUNGIGNER: URGENCY: STATUS: COMPLETED INFORMED CONSENT TO PARTICIPATE IN ASSESSMENT: At beginning of session reviewed rights and limits of confidentiality, mandatory reporting situations, duty to warn and protect, Cooley Warning, (if treatment team finds patient to be an acute danger to himself or others, that this information could be relayed to a court of law and presented to a animal anatomist), and 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 Provided Suicide Prevention Hotline number, and other contact numbers as necessary. Uniform Outpatient Mental Health Assessment I. IDENTIFYING INFORMATION: TEGAN YEAGER February [phone] SERVICE CONNECTED % - 40 MARITAL STATUS - Referral source: Present at time of intake: [place] [X] Family member [ ] Supportive person(s) Name: Language Preference:Citizen Of [place] Language Spoken:Citizen Of [place] II. PRESENTING SITUATION: A. What brings you into Mental Health at this time: Dealing with depression, anxiety, PTSD and insomnia-- always been a problem but more recently worse because of his losing job 10 days ago. He's getting an average of 3 or 4 hours a night. He has been working with a therapist at the [facility] for the past two years and he's very happy with her but realizing that he could benefit from psychiatric medications so he doesn't fall back on unhealthy coping skills (alcohol use and purging). B. What are some of your goals for treatment: Improved sleep, depression, anxiety. He has a history of alcohol use disorder and bulimia and would like to work toward maintaining recovery from both. C. What are some of your strengths: Parenting/love of his kids D. What are the obstacles or challenges preventing you from meeting your goals?: ex- and he are currently cohabitating which can be challenging. He states that she is also a and struggling with her mental health, so he tries to be there for her but that makes it harder to take care of himself. III: ASSESSMENT: A. 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 How do you see these concerns impacting past and current quality of life (School, Work, Family, Housing, Finances, Social life, Legal): Made him more impulsive, worsened bulimia-- though he states that this started in the . B. Have you previously been involved in Mental Health treatment: Yes [X] No [ ] If yes, please check all that apply and describe: [ ] Hospitalizations (when, where, etc.): [X] Medication trials (what, when, doses, etc.): only just recently started on 11/23/24 zolpidem 10mg and lorazepam .5 mg daily, sertraline 50 mg [X] Therapy trials (type, when, etc.): [facility] at [facility] for the past two years. He also saw a therapist longer ago while still in the for problems related to his marriage. C. Do you have concerns about current or past substance use: Yes [X] No [ ] If yes, please identify [place]'s primary and secondary substances of choice: ALCOHOL Age of onset: Age 18 in Method of aquiring substance: buy Means of use: oral Pattern of use: a 1.5 liter bottle of mezcato, twice a week. Duration (how long have you been using for the most recent episode): up and down over the past number of years Frequency: a couple days a week Amount: 10 drinks per evening when drinking Last use: 10 days ago What was you longest period of sobriety?: a couple months Check all that apply with respect to this substance: The substance is often taken in larger amounts or over a longer period than was intended., There is a persistent desire or unsuccessful efforts to cut down or control substance use., Craving, or a strong desire or urge to use the substance., Continued substance use despite persistent/recurrent social/interpersonal problems caused exacerbated by the effects of the substance., Recurrent substance use in situations in which it is physically hazardous., Tolerance, as defined the following: A need for markedly increased amounts of the substance to achieve intoxication or desired effect. , Withdrawl, as manifested by either of the following: The characteristic withdrawl syndrome for the substance (refer to criteria A and B of the criteria set for substance withdrawl). Depending on how many boxes were checked above, indicate the severity level: Severe: Presence of 6 or more symptoms. Regarding the motivation for treatment, estimate [place]'s stage of change with respect to this substance: Maintenance Which withdrawl symptoms have you had when you tried to stop using substance? Depression, Mood swings, Sleep problems if patient has substance use issues What are some triggers leading patient to use substances: dreams, stress at work, stress with ex What does this individual do to cope when triggered to use besides using, if anything? bulimia, punching bag, cardio, yoga, Has substance use lead to any medical concerns (including black outs, liver function, pancreatitis, withdrawal symptoms)? Which?: none How would you rate your readiness to change with respect to your substance(s) of choice: 8 Describe patient's level of awareness of the relationship between his or her behavioral conditions and his or her pattern of use? he recognizes that this is his way of coping with stress and that it was learned and encouraged while in the Describe any prior substance use treatment patient has had (detox, Residential, outpatient; when, where, modality, outcome): none Any current self-help group attendance (including AA/NA)? Yes Is patient receiving any substance use counseling or psychotherapy currently?: Yes -If yes, note modality, provider, and frequency: AUDIT-C RESULTS--In men, a score of 4 or more is considered positive; in women, a score of 3 or more is considered positive for at risk drinking. A score of 8-12 represents severe risk : Date Instrument Raw Trans Scale 08/29/2023 15:07 AUDC 1 Total Does patient report substance use is related to MST, Service-Connected Condition, and/or combat experience? Please explain. IV: PERSONAL HISTORY/INFORMATION: A. Biological/Social History (including: relevant developmental history, family of origin, sexual/physical/emotional traumas, cultural factors, applicable sexual history): Childhood was not great but not bad . He was raised in [place] by parents and with 4 younger sisters. He described his mother as very depressed and that his father would do anything to stay out of the house--and worked all the time. As a result, he would have to take care of his siblings.As far as school goes, he states that he struggled academically and thinks that he likely had ADHD. 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 His parents when he was 15. He denies any traumas. B. History (including actual duties, combat/war zone duty, trauma exposure, exposure to environmental contaminants): Rico joined [employer] at age 16 in 1991 and did basic training at [employer]. He followed this with [employer] school in [place]. 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 He was deployed to [place] in 2009 and was there for 6 or 7 months. He also had [place] to [place]. Shares that the trauma that he experienced in [place]--has been working on this in psychotherapy. Discharged 2020 as an e5. C. What provides you with sense of value or quality of life: Kids-- ages 8, 12 and 26 D. What are some accomplishments that you feel a sense of pride about: Kids, how he's parented them, when he fixes things around the house, when he builds thing. E. What brings you enjoyment: building things, doing work on the house, beautify the house F. Are you comfortable with your current living arrangement (Have you ever been homelessness or at risk for homelessness): denies G. What are your social or community Supports, your healthy or positive relationships: kids, no groups, H: What is your educational history or current goals: GED, college credits and would like to go back to school I. 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 Looking for similar job. J. Do you have a legal history (incarcerations, probation, parole, divorce, child custody issues): divorce- 3 years ago K. What is your level of congregation or spiritual fulfillment: agnostic L. How do you culturally identify? Can you anticipate any particular cultural on treatment? ? M. Is there anybody you would like involved in the planning or delivery of your care: no N. Do you have concerns for your safety or the safety of others (domestic violence, abuse/neglect, etc): denies O. Have you ever been in a situation where you felt you were taken advantage of or exploited, particularly by someone in a position of power? Yes- but more generally from being in the P. Income source: unemployment, 40% VA disability, [employer] V. PHYSICAL HEALTH SCREENING A. Do you have any past or current medical concerns: Yes [X] No [ ] Active Problem Snoring R06.83 08/30/2023 BIRD DIAL Pain of bilateral knee joints M25.5 08/30/2023 BIRD DIAL laceration of tendon right hand rep 08/29/2023 [facility] Depression F32.A 08/29/2023 [facility] Gout ([facility] [id number]) M10.9 08/29/2023 [facility] Insomnia G47.00 08/29/2023 [facility] Kidney stone N20.0 08/29/2023 [facility] Tinnitus H93.19 08/29/2023 [facility] Other medical problems not listed above: B. Date of last physical exam:oct 2024[ ]Unknown C.Are you experiencing pain: Rating (0-10: Comment on pain rating: none D. Nutritional screening - Have you experienced any of the following: Food Allergies? No, describe: Significant (+/- 10lbs) gain or loss in the last three months? Yes, describe: loss-- about 20 pounds- from the bulimia Decrease in food intake/appetite? No, describe: Notable Dental problems? Yes, describe: Significant change in eating habits (purging, restricting, etc.)? Yes, describe: has a history of bulimia dating to E. How do you see these concerns impacting on past and current quality of life (School, Work, Family, Housing, Finances, Social life, Legal, etc): Active Outpatient Medications (including Supplies): Non-VA IBUPROFEN 800MG TAB 800MG BY MOUTH EVERY 8 HOURS ACTIVE NEEDED Indication: FOR PAIN Non-VA MELATONIN 5MG CAP/TAB 5MG BY MOUTH AT BEDTIME ACTIVE NEEDED Indication: FOR INSOMNIA : MENTAL STATUS / SUBJECTIVE COMPLAINTS: (check all that apply): Appearance:Unremarkable, Neatly groomed, Appropriate to season Behavior:Appropriate, Pleasant, Anxious Mood/Affect:Normal, Bright, Anxious, Depressed Energy:Normal Sleep:Sleep onset insomnia, Frequent disruption Orientation: Oriented to person: Yes Oriented to place: Yes Oriented to time: Yes Stream of thought:Normal, No evidence of thought disorder, No overt psychosis Speech:Normal Insight / Judgment:Normal Other cognitive problems:Cognition intact, Logical and Linear, Memory sufficient for interview, None Relevant Observations, other notes: passive SI without active thoughts, plan or intent, no hx of behaviors. : DSM5 DIAGNOSES: Depressive disorder, unspecified Chronic PTSD Alcohol dependence, in early remission-- 10 days abstinent Bulimia nervosa, unspecified VII: SUMMARY AND IMPRESSIONS: is a [place] , [employer] [place] (30% for PTSD) presenting to treatment for [...] bulimia nervosa through a therapist at the [facility] but is recognizing that medication could help improve his mood and ability to cope in healtier ways. He has very recently started taking medications through his community PCP (zolpidem, lorazepam and sertraline) and is committed to no longer drinking and would also like to elimiate his episodes of purging. Contracts Law Professor offered him the sleep EZ program, community based employment services and the relapse prevention group. He was interested in the first two and states that he will talk to his individual therapist about some of the therapy groups offered at the [facility]. VIII: NEXT STEPS: A: How can we work to meet your goals: [place] already has a psychiatry appointment, he is also interested in the Sleep EZ digital insomnia program and the community based employment services for help finding a new job. Alcohol Use Screen (AUDIT-C): Alcohol Screen: SCREEN FOR ALCOHOL (AUDIT-C) An alcohol screening test (AUDIT-C) was positive (score=10). 1. How often did you have a drink containing alcohol in the past year? Consider a drink to be a 12 ounce can or bottle of regular beer, 8 ounces of malt liquor, a 5 ounce glass of table wine, or a 1.5 ounce shot of liquor (like scotch, gin, or vodka). Two to three times per week 2. How many drinks containing alcohol did you have on a typical day when you were drinking in the past year? Ten or more drinks 3. How often did you have six or more drinks on one occasion in the past year? Weekly Tobacco Use Screening: The patient has never smoked cigarettes. The patient has never used other types of tobacco. Homelessness/Food Insecurity Screen: In the past 2 months, have you been living in stable housing that you own, rent, or stay in as part of a household? Yes - Living in stable housing. Are you worried or concerned that in the next 2 months you may NOT have stable housing that you own, rent, or stay in as part of a household? No - Not worried about housing near future The [place] reports the following: Within the past 12 months, you worried whether your food would run out before you got money to buy more. Never true Within the past 12 months, the food you bought just didn't last and you didn't have money to get more. Never true Suicide Screen: C-SSRS Screening [place]-Suicide Severity Rating Scale (C-SSRS Screener) 1. Over the past month, have you wished you were or wished you could go to sleep and not wake up? Yes 2. Over the past month, have you had any actual thoughts of killing yourself? No 3. Over the past month, have you been thinking about how you might do this? Response not required due to responses to other questions. 4. Over the past month, have you had these thoughts and had some intention of acting on them? Response not required due to responses to other questions. 5. Over the past month, have you started to work out or worked out the details of how to kill yourself? Response not required due to responses to other questions. 6. If yes, at any time in the past month did you intend to carry out this plan? Response not required due to responses to other questions. 7. In your lifetime, have you ever done anything, started to do anything, or prepared to do anything to end your life (for example, collected pills, obtained a gun, gave away valuables, went to the roof but didn't jump)? No 8. If YES, was this within the past 3 months? Response not required due to responses to other questions. /xiomara/ VANDANA FUNG CLINICAL PSYCHOLOGIST Signed: 12/03/2024 14:42 VANDANA FUNG
--- OUTSIDE RECORDS SUMMARY | 2024-12-18 10:26 | XMS_ITS | Continuity of Care Document ---
Author Name [facility] Organization [facility] Care Team Providers Care Assistant Reading Teacher Name Role Phone [facility] Unavailable Unavailable Problems Combined list of problems [...] hand level Active 10/29/18 99 Condition DoD Alcohol abuse Active Condition [place] Bulimia nervosa Active Condition [facility] Chronic post-traumatic stress disorder following combat Active Condition [facility] LD Depression Active Condition [facility] Gout (SCT [id number]) Active Condition [facility]omnia Active Condition [facility] Kidney stone Active Condition [facility] Pain of bilateral knee joints Active Condition [facility] Snoring Active Condition [facility] Tinnitus Active Condition [facility] impetigo simplex Inactive Condition [facility] Diagnosis: ICD-10-CM F43.12 Post-traumatic stress disorder, chronic Active Diagnosis [place] Diagnosis: ICD-10-CM Z56.0 Unemployment, unspecified Active Diagnosis [facility] Diagnosis: ICD-10-CM F32.A Depression, unspecified Active Diagnosis [place] Diagnosis: ICD-10-CM Z46.0 Encounter for fit/adjst of spectacles and contact lenses Active Diagnosis [facility] Diagnosis: ICD-10-CM H52.4 Presbyopia Active Diagnosis [facility] Diagnosis: ICD-10-CM F43.10 Post-traumatic stress disorder, unspecified Active Diagnosis [facility] Diagnosis: ICD-10-CM Z02.89 Encounter for other administrative examinations Active Diagnosis [facility] Diagnosis: ICD-10-CM R06.83 Snoring Active Diagnosis [facility] Medications Combined list of outpatient medications from Department of Defense and Veterans Affairs facilities.Medications provided include 1) outpatient medications from the last 15 months, and 2) patient-reported medications. Medication Details Route Status Patient Instructions Prescription Expires Prescription Number Last Dispense Date Ordering Provider Order Date Order Qty Source IBUPROFEN 800MG TAB TAKE ONE TABLET BY MOUTH EVERY 8 HOURS NEEDED ORAL ACTIVE PR[facility]CILLA COWAN [facility] MELATONIN 5MG CAP/TAB TAKE ONE CAPSULE/ TABLET BY MOUTH HS PRN ORAL ACTIVE [facility]IRD D[facility] SERTRALINE HCL 50MG TAB TAKE ONE TABLET BY MOUTH ONCE DAILY FOR MAJOR DEPRESSI VE DISORDER ORAL ACTIVE 01/12/2025 [id number] Carlo BARRIOS 2024 [facility] TRAZODONE HCL 100MG TAB TAKE ONE TABLET BY MOUTH AT BEDTIME ORAL ACTIVE 01/12/2025 [id number] Carlo BARRIOS G 2024 30 I[facility] Immunizations Combined list of available immunizations from the Department of Defense and Veterans Affairs facilities. Immunization Series Date Given Administered By Site Reaction Lot Number CVX Code Drug Dietary Supervisor Status Comments Source influenza, injectable, quadrivalent, preservative free 2019 [place], () Not Given influenza , injectabl e, quadrival ent, preservat elyssa free [facility] Influenza, injectable, quadrivalent, preservative free 1 2019 Unknown, Provider [id number] 150 Sanofi Pasteur (PMC) complet ed Influenza , injectabl e, quadrival ent, preservat elyssa free [facility] Influenza, injectable, quadrivalent, preservative free 29 2018 [id number] 150 Seqirus (SEQ) complet ed Influenza , injectabl e, quadrival ent, preservat elyssa free DoD influenza, injectable, quadrivalent, contains preservative 28 2017 [id number] Seqirus (SEQ) comple t ed influenza , injectabl e, quadrival ent, contains preservat elyssa DoD Influenza, injectable, [place] [place] Canine Kidney, preservative free, quadrivalent 27 2016 [id number] Seqirus (SEQ) comple t ed Influenza , injectabl e, [place] Canine Kidney, preservat elyssa free, quadrival ent DoD Influenza, seasonal, injectable, preservative free 1 2015 [id number] Seqirus (SEQ) comple t ed Influenza , seasonal, injectabl e, preservat elyssa free DoD Influenza, seasonal, injectable, preservative free 1 2014 [id number] 140 Sanofi Pasteur (PMC) complet ed Influenza , seasonal, injectabl e, preservat elyssa free DoD Influenza, seasonal, injectable, preservative free 1 2013 [id number] 140 [employer]SL Quemulusapies[employer] Inc. (CSL) complet ed Influenza , seasonal, injectabl e, preservat elyssa free DoD Influenza, seasonal, injectable, preservative free 22 2012 [id number] 140 Novartis Pharmaceutica l Trisha. (NOV) complet ed Influenza , seasonal, injectabl e, preservat elyssa free DoD Influenza, seasonal, injectable, preservative free 1 2011 [id number] 140 [employer]SL Nexeonherapies[employer] Inc. (CSL) complet ed Influenza , seasonal, injectabl e, preservat elyssa free DoD tetanus toxoid, reduced diphtheria toxoid, and acellular pertu is vaccine, adsorbed 0 2011 [id number] 115 Sanofi Pasteur (PMC) complet ed tetanus toxoid, reduced diphtheri a toxoid, and acellular pertussis vaccine, adsorbed DoD Influenza, seasonal, injectable, preservative free 20 2010 [id number] 140 CSL Biotherapies[employer] Inc. (CS) complet ed Influenza , seasonal, injectabl e, preservat elyssa free DoD anthrax vaccine 4 2009 [id number] 24 [employer] [place] ([facility]) complet ed anthrax vaccine DoD influenza virus vaccine, split virus (incl. purified surface antigen)-reti red CODE 0 2009 [id number] 15 Sanofi Pasteur ([facility]) complet ed influenza virus vaccine, split virus (incl. purified surface antigen)- retired CODE DoD anthrax vaccine 4 2009 [id number] 24 [employer] [facility] ([facility]) complet ed anthrax vaccine DoD vaccinia (smallpox) vaccine 1 2009 [id number] 75 [facility] ([facility]) complet ed vaccinia (smallpox ) vaccine DoD typhoid Vi capsular polysaccharid e vaccine 1 2009 [id number] 101 Sanofi Pasteur ([facility]) complet ed typhoid Vi capsular polysacch aride vaccine DoD Novel influenza-H1N 1-09, injectable 1 2009 127 Transcribed (TRS) complet ed Novel influenza -M4L0-86, injectabl e DoD influenza virus vaccine, live, attenuated, for intranasal use 1 2008 [id number] 111 Actifio, Inc. (MED) complet ed influenza virus vaccine, live, attenuate d, for intranasa l use DoD influenza virus vaccine, live, attenuated, for intranasal use 1 2007 [id number] 111 Actifio, Inc. (MED) complet influenza virus vaccine, live, attenuate d, for intranasa l use DoD influenza virus vaccine, live, attenuated, for intranasal use 1 2006 [id number] 111 MedICoolaData[employer], Inc. (MED) complet ed influenza virus vaccine, live, attenuate d, for intranasa l use DoD influenza virus vaccine, split virus (incl. purified surface antigen)-reti red CODE 1 2005 [id number] 15 Sanofi Pasteur ([facility]) complet ed influenza virus vaccine, split virus (incl. purified surface antigen)- retired CODE DoD influenza virus vaccine, whole virus 1 2005 Unknown, Provider [id number] 16 Sanofi Pasteur ([facility]) complet ed influenza virus vaccine, whole virus DoD influenza virus vaccine, split virus (incl. purified surface antigen)-reti red CODE 1 2004 [id number] 15 Sanofi Pasteur ([facility]) complet ed influenza virus vaccine, split virus (incl. purified surface antigen)- retired CODE [facility] influenza virus vaccine, whole virus 1 2004 Unknown, Provider [id number] 16 [facility] ([facility]) complet ed influenza virus vaccine, whole virus DoD influenza virus vaccine, whole virus 0 2004 [id number] 16 [facility] ([facility]) complet ed influenza virus vaccine, whole virus DoD anthrax vaccine 4 2003 [id number] 24 [facility]) complet ed anthrax vaccine DoD anthrax vaccine 5 2003 [id number] 24 [facility]) complet ed anthrax vaccine DoD influenza virus vaccine, whole virus 0 2002 [id number] 16 Unknown (UNK) complet ed influenza virus vaccine, whole virus DoD typhoid vaccine, parenteral, other than acetone-kille d, dried 0 2002 [id number] 41 [facility] ([facility]) complet typhoid vaccine, parentera l, other than acetone-k illed, dried DoD anthrax vaccine 3 2002 [id number] 24 [facility] ([facility]) complet ed anthrax vaccine DoD anthrax vaccine 2 2002 [id number] 24 [facility] ([facility]) complet ed anthrax vaccine [facility] tuberculin skin test; purified protein derivative solution, intradermal 1 2002 Unknown, Provider 96 () complet tuberculi n skin test; purified protein derivativ e solution, intraderm al [facility] influenza virus vaccine, whole virus 0 2002 [id number] 16 [place] ([facility]) complet influenza virus vaccine, whole virus [facility] hepatitis B vaccine, adult dosage 4 2001 43 () complet hepatitis B vaccine, adult dosage [facility] tetanus and diphtheria toxoids, adsorbed, preservative free, for adult use (2 Lf of tetanus toxoid and 2 Lf of diphtheria toxoid) 0 2001 09 () complet ed tetanus and diphtheri a toxoids, adsorbed, preservat elyssa free, for adult use (2 Lf of tetanus toxoid and 2 Lf of diphtheri a toxoid) [facility] tuberculin skin test; purified protein derivative solution, intradermal 1 2001 Unknown, Provider 96 () complet ed tuberculi n skin test; purified protein derivativ e solution, intraderm al DoD influenza virus vaccine, whole virus 0 2000 [id number] 16 Unknown (UNK) comple t ed influenza virus vaccine, whole virus DoD typhoid vaccine, parenteral, other than acetone-kille d, dried 0 2000 [id number] 41 [facility] ([facility]) complet ed typhoid vaccine, parentera l, other than acetone-k illed, dried DoD tuberculin skin test; purified protein derivative solution, intradermal 1 2000 Unknown, Provider [id number] 96 [facility] ([facility]) complet ed tuberculi n skin test; purified protein derivativ e solution, intraderm al DoD influenza virus vaccine, whole virus 0 2000 [id number] 16 [facility] ([facility]) complet ed influenza virus vaccine, whole virus DoD hepatitis A vaccine, adult dosage 2 1999 [id number] Merck (MSD) complet ed hepatitis A vaccine, adult dosage DoD hepatitis B vaccine, adult dosage 3 1999 [id number] Merck (MSD) complet ed hepatitis B vaccine, adult dosage DoD tuberculin skin test; purified protein derivative solution, intradermal 1 1999 Unknown, Provider 2490-[address] [place] [address] ([facility]) complet ed tuberculi n skin test; purified protein derivativ e solution, intraderm al DoD influenza virus vaccine, whole virus 0 [id number] 16 [facility] ([facility]) complet ed influenza virus vaccine, whole virus DoD typhoid vaccine, parenteral, other than acetone-kille d, dried 0 1998 [id number] 41 Sanofi Pasteur ([facility]) complet ed typhoid vaccine, parentera l, other [...] solution, intradermal 1 1998 Unknown, Provider 2481-[address] [place] [address] ([facility]) complet ed tuberculi n skin test; purified protein derivativ e solution, intraderm al DoD influenza virus vaccine, whole virus 0 [id number] 16 [facility] (CON) complet ed influenza virus vaccine, whole virus DoD influenza virus vaccine, whole virus 0 1996 16 () complet ed influenza virus vaccine, whole virus DoD yellow fever vaccine 0 1996 37 () complet ed yellow fever vaccine DoD influenza virus vaccine, whole virus 0 1995 16 Transcribed (TRS) complet ed influenza virus vaccine, whole virus DoD typhoid vaccine, parenteral, acetone-kille d, dried (U.S. ) 2 1995 53 () complet ed typhoid vaccine, parentera l, acetone-k illed, dried ([place].S. Planet[employer]) DoD influenza virus vaccine, whole virus 0 [...] solution, intradermal 1 1992 Unknown, Provider 2426-[address] [place] [address] ([facility]) complet tuberculi n skin test; purified protein derivativ e solution, intraderm al DoD typhoid vaccine, parenteral, other than acetone-kille d, dried 0 1992 41 Transcribed (TRS) complet ed typhoid vaccine, parentera l, other than acetone-k illed, dried DoD influenza virus vaccine, whole virus 0 1991 16 Transcribed (TRS) complet ed influenza virus vaccine, whole virus [facility] trivalent poliovirus vaccine, live, oral 0 1991 02 () complet trivalent polioviru s vaccine, live, oral [facility] tetanus and diphtheria toxoids, adsorbed, preservative free, [...] from Department of Veterans Affairs facilities going backup to the last 18 months, not all VA inpatient encounters are included; 2) Encounters from the Department of Defense facilities going backup to 280 months. Location Location Details Encounter Type Encounter Number Reason For Visit Attending Provider ADM Date DC Date Status Disposition Source Theater Facility OUTPATIENT [id number] 07/11 [facility] Limitations [facility] [id number] 12/12 Released w/o Limitations [place] [address](AFN G [address]) OUTPATIENT [id number] Notes Entered by: JT LEDESMA 07 Sep 2017 1457 ------- ------- ------- ------- -- JT MALCOLM 09/07 Released w/o Limitations [facility] [place] [address](A FNG [address] Med Sq[address]FM) [place] [address](AFN G [address]) OUTPATIENT [id number] Notes Entered by: RIKKI HESS 08 Jul 2018 0826 ------- ------- ------- ------- -- LISA CERNA 07/08 Released w/o Limitations [facility] [place] [address](A FNG [address]) [place] [address](AFN G [address]) OUTPATIENT [id number] Notes Entered by: JT LEDESMA 19 Sep 2019 0844 ------- ------- ------- ------- -- JT MALCOLM 09/19 Released w/o Limitations [facility] [place] [address](A FNG [address]) [place] [address](AFN G [address]) OUTPATIENT [id number] Notes Entered by: JT LEDESMA 12 Dec 2019 1245 ------- ------- ------- ------- -- JT MALCOLM 12/12 Released w/o Limitations [facility] [place] [address](A FNG [address]) [place] [address](AFN G [address]) OUTPATIENT [id number] Notes Entered by: RIKKI HESS 19 Feb 2020 1446 ------- ------- ------- ------- -- Status of injury report LISA HESS 02/18 Released with Work/Duty Limitations [facility] [place] [address](A FNG [address]FM) [place] [address](AFN G [address]FM) TELE CONSULT [id number] Notes Entered by: JT LEDESAM 15 May 2020 1046 ------- ------- ------- ------- -- JT Mendoza 05/15 [facility] [place] [address](A FNG [address]FM) [place] [address](AFN G [address]-FM) TELE CONSULT [id number] Notes Entered by: JT LEDESMA 13 Jun 2020 1443 ------- ------- ------- ------- -- RTD note JT LEDESMA 06/13 [facility] [place] [address](A FNG [address]) [facility] Outpatient Encounter [id number] 08/25 [facility] [id number] Diagnos is: ICD-10- CM F32.A Depress ion, unspeci ESTELITA Harrison 08/29 [facility] En[facility] [id number] 08/30 [facility] OFFICE O/P NEW LOW 30-44 MIN [id number] Diagnos is: ICD-10- CM R06.83 Snoring Annetta DIAL 08/30 [facility] Out[facility] Encounter [id number] 11/02 [facility] Out[facility] Encounter [id number] 12/07 [facility] Out[facility] Encounter [id number] 01/04 [facility] Out[facility] Encounter [id number] 01/08 [facility] Out[facility] Encounter [id number] 01/10 [facility] Out[facility] Encounter [id number] Diagnos is: ICD-10- CM Z02.89 Encount er for other adminis trative examina tiJACKELYN Piper 02/01 [facility] Out[facility] Encounter [id number] JORGE LUISYESSI ISTOPHER E 02/01 [facility] Outpatient Encounter [id number] Diagnos is: ICD-10- CM F43.10 Post-tr aumatic stress disorde r, unspeci fied [facility] En[facility] [id number] [facility] Out[facility] Encounter [id number] 04/06 [facility] Out[facility] Encounter [id number] 04/06 [facility] COMPRE OPH EXAM NEW PT 1/> [id number] Diagnos is: ICD-10- CM H52.4 Presbyo judi GIO BARRON 08/15 [facility] FIT SPECTACLES MONOFOCAL [id number] Diagnos is: ICD-10- CM Z46.0 Encount er for fit/adj st of spectac les and contact lenses GIO BARRON 08/15 [facility] Out[facility] Encounter [id number] 11/01 [facility] Outpatient Encounter [id number] 11/02 [facility] Outpatient Encounter [id number] 11/18 [facility] [place] PSYCH DIAGNOSTIC EVALUATION [id number] Diagnos is: ICD-10- CM F32.A Depress ion, unspeci VANDANA [place] 12/03 [facility] IELD [facility] COMMUNITY/ WORK REINTEGRAT ION [id number] Diagnos is: ICD-10- CM Z56.0 Unemplo yment, unspeci [facility] [place] 12/04 [facility] COMMUNITY/ WORK REINTEGRAT ION [id number] Diagnos is: ICD-10- CM Z56.0 Unemplo yment, unspeci [facility] [place] 12/12 [facility] OFF/OP CNSLTJ NEW/EST MOD 40 [id number] Diagnos is: ICD-10- CM F43.12 Post-tr aumatic stress disorde r, chronic [facility] 12/13 [facility] IELD Procedures Combined list of: 1) Procedures from Department of Veterans Affairs facilities going back up to thelast 18 months, not all OR non-surgical procedures are included; 2) All procedures from the Department of Defense facilities. Procedure Procedure Type Code Date Perfomer Comments Sourc e Psychiatric Diagnostic Evaluation Psychiatric Diagnostic Evaluation 74146 04/05/2018 [facility] Psychometric Emotional / Behavioral A e ment Psychometric Emotional / Behavioral Assessment 04253 04/05/2018 [facility] PSYCHIATRIC DIAGNOSTIC EVALUATION 04/05/2018 [facility] Social History Combined list of available smoking, tobacco, and other social history from Department of Defense and Veterans Affairs facilities. Social History Type Response Date Comment Sourc e Tobacco smoking status NHIS OR-TOBACCO NEVER USED CIGARETTES 12/03/2024 [place] History of tobacco use OR-TOBACCO NEVER USED OTHER TYPE 12/03/2024 [place] History of tobacco use OR-TOBACCO NEVER USED 08/29/2023 [facility] This section is an empty social history section. DoD Plan of Care List of future care activities from Department of Veterans Affairs facilities. Additional future care activities may be listed in the Assessment and Plan section. 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
--- NOTE | 2024-12-18 10:49 | A.OFFPC_ITS ---
Vital Signs 12/18/24 10:51 Height 5 ft 9 in Weight 176 lb BMI 26.0 BP 110/80 Blood Pressure Location Rt brachial Position Sitting Respiration 18 Pulse 68 Pulse Source Pulse Oximeter Temp 97.9 F Temp Source Oral Pulse Oximetry (%) 98 Oxygen Delivery Method Room Air Intake Visit Reasons: ffup anxiety/depression Allergies No Known Allergies Allergy (Verified 12/18/24 11:00) Medication List - Last Reconciled 12/18/24 by Natalya Pires MD sertraline 25 mg PO DAILY trazodone 50 mg PO DAILY Tobacco use date assessed: 12/18/24 Dental Screening Dental Screen Date: 12/18/24 Did you have a dental visit in the last 12 months?: No Did you have a dental problem in the last 6 months where you did not have access to dental care?: No Was dental information given to patient?: Patient has dentist HPI ffup anxiety/depression HPI Details 49-year-old male here today for follow-u p regarding anxiety depression. Patient states that he has been feeling better on sertraline at 25 mg daily, and has been taking trazodone but rarely needing to take it now. Currently being seen by therapist at the [facility] and is scheduled to be seen by Psychiatry in the near future. [facility] Medical History Depression with anxiety Blurred vision, bilateral Hx of gout History of kidney stones Surgical History S/P orchiopexy History of urethral stent S/P tendon repair Family History Father History of hypertension Hx of hyperlipidemia Hx of myocardial infarction Substance use disorder Mother History of COPD Substance use disorder Paternal Uncle Substance use disorder Paternal Grandfather Substance use disorder Paternal Uncle Mental health disorder Paternal Uncle Mental health disorder Social History Housing: House Alcohol intake: current Patient Tobacco Use Status: Never used Tobacco e-Cigarette/Vaping Use: Never Used service: Yes Current occupational status: unemployed Cognitive needs: No Hearing needs: No Vision needs: Yes Questionnaire PHQ-9 Over the last 2 weeks, how often have you been bothered by any of the following problems? 1. Little interest or pleasure in doing things: not at all 2. Feeling down, depressed, or hopeless: several days 3. Trouble falling or staying asleep, or sleeping too much: nearly every day 4. Feeling tired or having little energy: several days 5. Poor appetite or overeating: not at all 6. Feeling bad about yourself - or that you are a failure or have let yourself or your family down: not at all 7. Trouble concentrating on things, such as reading the newspaper or watching television: not at all 8. Moving or speaking so slowly that other people could have noticed. Or the opposite - being so fidgety or restless that you have been moving around a lot more than usual: not at all 9. Thoughts that you would be better off or of hurting yourself in some way: not at all Total score: 5 Depression Screening Interpretation: Positive (Feeling better on sertraline 25 mg daily, takes trazodone at night as needed) Depression Screening Follow-up: Existing condition, 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 (Currently being seen at the [facility]) Depression Screening Done: Yes Source: Developed by Drs. Kishan Hanson, Jeanna Carballo, Ravindra Kendrick and colleagues, with an educational acacia from [employer]. Thrive Questionnaire Date Thrive assessed: 12/16/24 I am a: Patient What is your living situation today?: I have a steady place to live Within the past 12 months, did the food you bought not last and you didn't have the money to get more?: Never true Within the past 12 months, did you worry whether your food would run out before you got money to buy more?: Never true Do you have trouble paying for medicines?: No Do you have trouble getting transportation to medical appointments?: No Do you have trouble paying your heating and electricity bill?: No Do you have trouble taking care of your child, family member or friend?: No Do you have trouble with day-to-day activities such as bathing, preparing meals, shopping, managing finances, etc.?: No Are you currently unemployed and looking for a job?: Yes Are you interested in more education?: No Please select the resources that you would like help with: None Currently or been in a relationship where the following occur: I choose not to answer THRIVE Score: 0 AUDIT C Alcohol Use Questionnaire (AUDIT-C) 1. How often do you have a drink containing alcohol?: Never 3. How often do you have six or more drinks on one occasion?: Never Total Score: 0 SUSANA-7 AMB Questionnaire SUSANA-7 Date SUSANA - 7 assessed: 11/23/24 Feeling nervous, anxious, or on edge: 1 = Several days Not being able to stop or control worryin = Several days Worrying too much about different things: 1 = Several days Trouble relaxin = Not at all Being so restless that it is hard to sit still: 0 = Not at all Becoming easily annoyed or irritable: 0 = Not at all Feeling afraid as if something awful might happen: 0 = Not at all Total SUSANA-7 score (0-4 normal; 5-9 mild; 10-14 moderate; 15-21 severe): 3 Source: Developed by Drs. Kishan Hanson, Jeanna Carballo, Ravindra Kendrick and colleagues, with an educational acacia from [employer]. SUSANA-7 Assessment Billing SUSANA-7 Assessment Tool: SUSANA-7 Assessment 28462 Review of Systems Const Reports as per HPI Eyes Denies change in vision ENT Reports no additional complaints Card Denies chest pain, Denies lightheadedness, Denies palpitations and Denies dyspnea Resp Denies chest congestion, Denies cough, Denies dyspnea and Denies wheezing GI Denies abdominal pain, Denies change in bowel habits and Denies heartburn Musc Reports no additional complaints Neuro Reports no additional complaints Psych Details: [facility] Reports as per HPI Endo Denies polydipsia, Denies polyuria and Denies palpitations Gelacio/Lymph Denies easy bruising Aller/Immun Denies seasonal rhinorrhea and Denies wheezing Physical exam (Primary Care) Vital Signs: Last Vital Signs Temp 97.9 F 12/18/24 10:51 Pulse 68 12/18/24 10:51 Resp 18 12/18/24 10:51 BP 110/80 12/18/24 10:51 Pulse Ox 98 12/18/24 10:51 Oxygen Delivery Method Room Air 12/18/24 10:51 BMI result Body Mass Index 26.0 Tobacco/Smoking Status: Tobacco use Status Tobacco use date assessed 12/18/24 12/18/24 10:55 Patient Tobacco Use Status Never used Tobacco 12/18/24 10:50 e-Cigarette/Vaping Use Never Used 12/18/24 10:50 PHQ-9: PHQ-9 Score PHQ-9: Total score 5 12/18/24 11:10 Depression Screening Interpretation: Positive (Feeling better on sertraline 25 mg daily, takes trazodone at night as needed) Depression Screening Follow-up: Existing condition, 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 (Currently being seen at the [facility]) Thrive Assessment: Date of Thrive Assessment Date Thrive assessed 12/16/24 12/18/24 10:50 Currently or been in a relationship where the following occur: I choose not to answer Const General: no acute distress Nutritional Appearance: average body habitus Orientation/consciousness: patient oriented x3 HENMT Face and sinus: Yes face symmetric Mouth: Normal oral and palatal mucosa present and moist mucous membranes Eyes General: appearance normal, both eyes and all related structures Neck Neck: Yes full ROM, Yes no lymphadenopathy and Yes supple Resp Effort & Inspection: normal respiratory effort and able to speak in complete sentences Auscultation: clear to auscultation bilaterally Cardio Palpation: normal PMI Rate: regular rate Rhythm: regular rhythm Heart sounds: S1 normal heart sound present and S2 normal heart sound present Neuro General: patient oriented x3, gait normal, tone normal, moves all extremities and no focal motor deficits Cognition (Neuro): normal cognition Extrem General: Yes full ROM, Yes no joint enlargement, Yes no clubbing, cyanosis or edema and Yes normal gait Psych Appearance: grossly normal Mental Status: mental status grossly normal Speech and movement: Normal speech and movement present Affect: normal affect Attitude: cooperative Thought process: Normal thought process present Thought content: Normal thought content present Coding Level of Care Code Est Pt Level 3 (49882) Diagnoses Depression with anxiety F41.8 Additional Codes SUSANA-7 Assessment Billing - SUSANA-7 Assessment Tool: SUSANA-7 Assessment 24474 ([id number]) Assessment & Plan Assessment & Plan (1) Depression with anxiety: Code(s): F41.8 - Other specified anxiety disorders Category: Medical Plan: Doing better on sertraline 25 mg daily and takes trazodone only as needed for insomnia. Currently being followed now at the [facility] sees therapist and is scheduled to be seen by Psychiatry in the near future, per patient Orders: Orders Aspartate Amino Transferase 12/18/24 F41.8 - Other specified anxiety disorders, Z13.1 - Encounter for screening for diabetes mellitus, Z13.220 - Encounter for screening for lipoid disorders, Z87.39 - Personal history of other diseases of the musculoskeletal system and connective tissue Uric Acid 12/18/24 F41.8 - Other specified anxiety disorders, Z13.1 - Encounter for screening for diabetes mellitus, Z13.220 - Encounter for screening for lipoid disorders, Z87.39 - Personal history of other diseases of the musculoskeletal system and connective tissue Basic Metabolic Panel Fasting 12/18/24 F41.8 - Other specified anxiety disorders, Z13.1 - Encounter for screening for diabetes mellitus, Z13.220 - Encounter for screening for lipoid disorders, Z87.39 - Personal history of other diseases of the musculoskeletal system and connective tissue Lipid Panel 12/18/24 F41.8 - Other specified anxiety disorders, Z13.1 - Encounter for screening for diabetes mellitus, Z13.220 - Encounter for screening for lipoid disorders, Z87.39 - Personal history of other diseases of the musculoskeletal system and connective tissue Alanine Aminotransferase 12/18/24 F41.8 - Other specified anxiety disorders, Z13.1 - Encounter for screening for diabetes mellitus, Z13.220 - Encounter for screening for lipoid disorders, Z87.39 - Personal history of other diseases of the musculoskeletal system and connective tissue
[2024-12-18 10:51] VITALS: BP 110/80; PULSE 68; RESP 18; TEMP 36.6; O2SAT 98; BMI 26.0
== END 2024-12-18 11:21 | disposition home or self-care (01) ==
PROVIDERS: PCP Internal Medicine; Visit Provider Internal Medicine
DX: F41.8 Other specified anxiety disorders (principal)

== ENCOUNTER → 2024-12-18 09:39 | Outpatient (BNVA) | payer OTHER, SELFPAY | PROVIDERS: PCP Internal Medicine; Visit Provider Internal Medicine | DX: F41.8 Other specified anxiety disorders (principal) | CPT/HCPCS: 96127; 99212 ==

== ENCOUNTER 2024-12-27 08:19 | Outpatient (AMB) | payer OTHER, SELFPAY ==
[2024-12-27 08:30] VITALS: BP 130/70; PULSE 62; RESP 16; TEMP 36.6; O2SAT 95; BMI 25.8
--- NOTE | 2024-12-27 08:30 | A.OFFPC_ITS ---
Vital Signs 12/27/24 08:30 Height 5 ft 9 in Weight 175 lb BMI 25.8 BP 130/70 Blood Pressure Location Lt brachial Position Sitting Respiration 16 Pulse 62 Pulse Source Pulse Oximeter Temp 97.9 F Temp Source Oral Pulse Oximetry (%) 95 Oxygen Delivery Method Room Air Intake Visit Reasons: PHY Intake Note: Pt is here today for his PE Allergies No Known Allergies Allergy (Verified 12/27/24 08:55) Medication List - Last Reconciled 12/27/24 by Natalya Pires MD sertraline 25 mg PO DAILY trazodone 50 mg PO DAILY Tobacco use date assessed: 12/27/24 Dental Screening Dental Screen Date: 12/18/24 Did you have a dental visit in the last 12 months?: Yes Did you have a dental problem in the last 6 months where you did not have access to dental care?: No Was dental information given to patient?: Patient has dentist HPI PHKassie HPI Details 49-year-old male with history of depress ion anxiety, and history of gout, here today for physical exam. He is currently being followed at the [facility], currently taking sertraline and trazodone which has been helping. Has not had any attacks of gout this year. Patient states that he had a colonoscopy done to be 2023, which showed only presence of hemorrhoids. Copy of report requested again. Has been feeling well with no complaints at present time, due for flu vaccine. [facility] Medical History Depression with anxiety Blurred vision, bilateral Hx of gout History of kidney stones Surgical History S/P orchiopexy History of urethral stent S/P tendon repair Family History Father History of hypertension Hx of hyperlipidemia Hx of myocardial infarction Substance use disorder Mother History of COPD Substance use disorder Paternal Uncle Substance use disorder Paternal Grandfather Substance use disorder Paternal Uncle Mental health disorder Paternal Uncle Mental health disorder Social History Housing: House Alcohol intake: current Patient Tobacco Use Status: Never used Tobacco e-Cigarette/Vaping Use: Never Used service: Yes Current occupational status: unemployed Cognitive needs: No Hearing needs: No Vision needs: Yes Questionnaire PHQ-9 Over the last 2 weeks, how often have you been bothered by any of the following problems? 1. Little interest or pleasure in doing things: not at all 2. Feeling down, depressed, or hopeless: not at all 3. Trouble falling or staying asleep, or sleeping too much: not at all 4. Feeling tired or having little energy: not at all 5. Poor appetite or overeating: not at all 6. Feeling bad about yourself - or that you are a failure or have let yourself or your family down: not at all 7. Trouble concentrating on things, such as reading the newspaper or watching television: not at all 8. Moving or speaking so slowly that other people could have noticed. Or the opposite - being so fidgety or restless that you have been moving around a lot more than usual: not at all 9. Thoughts that you would be better off or of hurting yourself in some way: not at all Total score: 0 Depression Screening Interpretation: Positive (Stable and controlled on present treatment, currently being followed at the [facility]) Depression Screening Follow-up: Existing condition, 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 Depression Screening Done: Yes 04617 - PHQ-9 Billing: Yes Source: Developed by Drs. Kishan Hanson, Jeanna Carballo, Ravindra Kendrick and colleagues, with an educational acacia from [employer]. Thrive Questionnaire Date Thrive assessed: 12/16/24 I am a: Patient What is your living situation today?: I have a steady place to live Within the past 12 months, did the food you bought not last and you didn't have the money to get more?: Never true Within the past 12 months, did you worry whether your food would run out before you got money to buy more?: Never true Do you have trouble paying for medicines?: No Do you have trouble getting transportation to medical appointments?: No Do you have trouble paying your heating and electricity bill?: No Do you have trouble taking care of your child, family member or friend?: No Do you have trouble with day-to-day activities such as bathing, preparing meals, shopping, managing finances, etc.?: No Are you currently unemployed and looking for a job?: Yes Are you interested in more education?: No Please select the resources that you would like help with: None Currently or been in a relationship where the following occur: I choose not to answer THRIVE Score: 0 AUDIT C Alcohol Use Questionnaire (AUDIT-C) 1. How often do you have a drink containing alcohol?: Never Total Score: 0 SUSANA-7 AMB Questionnaire SUSANA-7 Date SUSANA - 7 assessed: 12/27/24 Feeling nervous, anxious, or on edge: 0 = Not at all Not being able to stop or control worryin = Not at all Worrying too much about different things: 0 = Not at all Trouble relaxin = Not at all Being so restless that it is hard to sit still: 0 = Not at all Becoming easily annoyed or irritable: 0 = Not at all Feeling afraid as if something awful might happen: 0 = Not at all Total SUSANA-7 score (0-4 normal; 5-9 mild; 10-14 moderate; 15-21 severe): 0 Source: Developed by Drs. Kishan Hanson, Jeanna Carballo, Ravindra Kendrick and colleagues, with an educational acacia from [employer]. SUSANA-7 Assessment Billing SUSANA-7 Assessment Tool: SUSANA-7 Assessment 14168 Review of Systems Const Reports no additional complaints Eyes Details: [facility]es to the [facility] for his regular eye exam Denies change in vision ENT Details: Up-to-date with his dental cleaning goes every 6 months. Reports no additional complaints Card Denies chest pain, Denies lightheadedness, Denies palpitations and Denies dyspnea Resp Denies chest congestion, Denies cough, Denies dyspnea and Denies wheezing GI Denies abdominal pain, Denies change in bowel habits and Denies heartburn Reports no additional complaints Musc Reports no additional complaints Skin/Breast Denies lesions and Denies rash Neuro Reports no additional complaints Psych Details: Currently being seen by therapist and psychiatrist at the [facility], stable on current medication Reports no additional complaints Endo Denies polydipsia, Denies polyuria and Denies palpitations Gelacio/Lymph Denies easy bruising Aller/Immun Denies seasonal rhinorrhea and Denies wheezing Physical exam (Primary Care) Vital Signs: Last Vital Signs Temp 97.9 F 12/27/24 08:30 Pulse 62 12/27/24 08:30 Resp 16 12/27/24 08:30 BP 130/70 12/27/24 08:30 Pulse Ox 95 12/27/24 08:30 Oxygen Delivery Method Room Air 12/27/24 08:30 BMI result Body Mass Index 25.8 Tobacco/Smoking Status: Tobacco use Status Tobacco use date assessed 12/27/24 12/27/24 08:31 Patient Tobacco Use Status Never used Tobacco 12/27/24 08:31 e-Cigarette/Vaping Use Never Used 12/27/24 08:31 Depression Screening Interpretation: Positive (Stable and controlled on present treatment, currently being followed at the [facility]) Depression Screening Follow-up: Existing condition, 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 Thrive Assessment: Date of Thrive Assessment Date Thrive assessed 12/16/24 12/27/24 08:31 Currently or been in a relationship where the following occur: I choose not to answer Advance Care Planning discussion: Completed/Scanned Date of discussion: 12/27/24 Who was present: Patient Forms completed: Health Care Proxy Time spent: 16-45 minutes Actual minutes spent: 2 Const General: no acute distress Nutritional Appearance: average body habitus Orientation/consciousness: patient oriented x3 HENMT Face and sinus: Yes face symmetric Mouth: Normal oral and palatal mucosa present and moist mucous membranes Eyes General: appearance normal, both eyes and all related structures Neck Neck: Yes full ROM, Yes no lymphadenopathy and Yes supple Chest Chest palpation & inspection: normal inspection of the chest Resp Effort & Inspection: normal respiratory effort and able to speak in complete sentences Auscultation: clear to auscultation bilaterally Cardio Palpation: normal PMI Rate: regular rate Rhythm: regular rhythm Heart sounds: S1 normal heart sound present and S2 normal heart sound present GI Inspection: Yes normal to inspection Palpation (GI): Soft to palpation, nontender, no guarding and no masses Auscultation: normal bowel sounds General: Yes no CVA tenderness Back/Spine/Pelvis Back: no CVA tenderness Skin General skin exam: no rashes or lesions noted Neuro General: patient oriented x3, gait normal, tone normal, moves all extremities and no focal motor deficits Cognition (Neuro): normal cognition Extrem General: Yes full ROM, Yes no joint enlargement, Yes no clubbing, cyanosis or edema and Yes normal gait Psych Appearance: grossly normal Mental Status: mental status grossly normal Speech and movement: Normal speech and movement present Affect: normal affect Attitude: cooperative Thought process: Normal thought process present Thought content: Normal thought content present Coding Level of Care Code Veronika Pt Prev Care 40-64y(12986) Diagnoses Annual visit for general adult medical examination with abnormal findings Z00.01 Depression with anxiety F41.8 Hx of gout Z87.39 Advanced directives, counseling/discussion Z71.89 Additional Codes SUSANA-7 Assessment Billing - SUSANA-7 Assessment Tool: SUSANA-7 Assessment 90464 ([id number]) PHQ-9 - 15139 - PHQ-9 Billing: Yes ([id number]) Vital Signs *Quality* - Advance Care Planning discussion: Completed/Scanned ([id number]) Vital Signs *Quality* - Time spent: 16-45 minutes ([id number]) Assessment & Plan Assessment & Plan (1) Annual visit for general adult medical examination with abnormal findings: Code(s): Z00.01 - Encounter for general adult medical examination with abnormal findings Plan: Will check appropriate labs. Continue regular dental visit every 6 months and regular eye exams, at least every 2 years, goes to the [facility] for his routine eye exam. Take adequate calcium in diet and vitamin-D 3 at 2000 IU per cap once a day, in addition to weight-bearing exercises to help maintain good muscle tone and weight control. Instructed to do self-testicular exam check for any mass.. Up-to-date with all his vaccines, flu vaccine given today. Patient states that he had a screening colonoscopy done in 2023 at the [facility]. Copy of report requested again (2) Depression with anxiety: Code(s): F41.8 - Other specified anxiety disorders Category: Medical Plan: Depression anxiety symptoms controlled on sertraline and trazodone, currently being followed now by Psychiatry at the [facility] (3) Hx of gout: Code(s): Z87.39 - Personal history of other diseases of the musculoskeletal system and connective tissue Category: Medical Plan: Will check uric acid level, labs have already been ordered. (4) Advanced directives, counseling/discussion: Code(s): Z71.89 - Other specified counseling Plan: Initiated the conversation about Advanced Directives. Advanced Directives help patients prepare for current and future decisions about their medical treatment and place of care. Discussed with patient that it is a process where a patients current condition and prognosis are reviewed, their wishes for information regarding their illness are elicited, and likely medical dilemmas are presented and options discussed. Healthcare proxy form completed today. The form can be amended as needed, reviewed yearly and make changes as needed Orders: Orders Influenza [id number] Immunization Today Z23 - Encounter for immunization Medications: New Fluarix Triv [id number] (PF) (flu vacc [id number] 6mos up(PF)) 0.5 mL IM ONCE 0.5 mL 0RF NS Z23 - Encounter for immunization
--- OUTSIDE RECORDS SUMMARY | 2024-12-27 08:44 | XMS_ITS | Continuity of Care Document ---
Author Name [facility] Organization [facility] Care Team Providers Care [place] Worker Name Role Phone [facility] Unavailable Unavailable Problems Combined list of problems [...] Condition DoD impetigo simplex Inactive Condition DoD Alcohol abuse [facility] Bulimia nervosa Active Condition [facility] Chronic post-traumatic stress disorder following combat Active Condition [facility] LD Depression Active Condition [facility] Gout (SCT [id number]) Active Condition [facility]omnia Active Condition [facility] Kidney stone Active Condition [facility] Pain of bilateral knee joints Active Condition [facility] Snoring Active Condition [facility] Tinnitus Active Condition [facility] Diagnosis: ICD-10-CM Z56.0 Unemployment, unspecified Active Diagnosis [facility] Diagnosis: ICD-10-CM F43.12 Post-traumatic stress disorder, chronic Active Diagnosis [place] Diagnosis: ICD-10-CM F32.A Depression, unspecified Active Diagnosis [place] Diagnosis: ICD-10-CM Z46.0 Encounter for fit/adjst of spectacles and contact lenses Active Diagnosis [facility] Diagnosis: ICD-10-CM H52.4 Presbyopia Active Diagnosis [facility] Diagnosis: ICD-10-CM F43.10 Post-traumatic stress disorder, unspecified Active Diagnosis [facility] Diagnosis: ICD-10-CM Z02.89 Encounter for other administrative examinations Active Diagnosis [facility] Diagnosis: ICD-10-CM R06.83 Snoring Active Diagnosis [facility] Medications Combined list of outpatient medications [...] HOURS NEEDED ORAL ACTIVE PRISCILLA COWAN [facility] MELATONIN 5MG CAP/TAB TAKE ONE CAPSULE/ TABLET BY MOUTH HS PRN ORAL ACTIVE BIRD DILA 2022 [facility] SERTRALINE HCL 50MG TAB TAKE ONE TABLET BY MOUTH ONCE DAILY FOR MAJOR DEPRESSI VE DISORDER ORAL ACTIVE 01/12/2025 [id number] Carlo BARRIOS 2024 [facility] TRAZODONE HCL 100MG TAB TAKE ONE TABLET BY MOUTH AT BEDTIME ORAL ACTIVE 01/12/2025 [id number] 5 Carlo BARRIOS G 2024 30 IELD Immunizations Combined list of available immunizations from the Department of Defense and Veterans Affairs facilities. Immunization Series Date Given Administered By Site Reaction Lot Number CVX Code Drug Retail Client Solutions Analyst Status Comments Source influenza, injectable, quadrivalent, preservative free 2019 [place], () Not Given influenza , injectabl e, quadrival ent, preservat elyssa free [facility] Influenza, injectable, quadrivalent, preservative free 1 2019 Unknown, Provider [id number] 150 Sanofi Pasteur (PMC) complet ed Influenza , injectabl e, quadrival ent, preservat elyssa free DoD Influenza, injectable, quadrivalent, preservative free 29 2018 [id number] 150 Seqirus (SEQ) complet ed Influenza , injectabl e, quadrival ent, preservat elyssa free DoD influenza, injectable, quadrivalent, contains preservative 28 2017 [id number] Seqirus (SEQ) comple t ed influenza , injectabl e, quadrival ent, contains preservat elyssa DoD Influenza, injectable, Madin Firth Canine Kidney, preservative free, quadrivalent 27 2016 [id number] 171 Seqirus (SEQ) comple t ed Influenza , injectabl e, Madin Firth Canine Kidney, preservat elyssa free, quadrival ent DoD Influenza, seasonal, injectable, preservative free 1 2015 [id number] 140 Seqirus (SEQ) comple t ed Influenza , seasonal, injectabl e, preservat elyssa free DoD Influenza, seasonal, injectable, preservative free 1 2014 [id number] 140 Sanofi Pasteur (PMC) complet ed Influenza , seasonal, injectabl e, preservat elyssa free DoD Influenza, seasonal, injectable, preservative free 1 2013 [id number] 140 CSL [employer] (CSL) complet ed Influenza , seasonal, injectabl e, preservat elyssa free DoD Influenza, seasonal, injectable, preservative free 22 2012 [id number] 140 Novartis Pharmaceutica l Trisha. (NOV) complet ed Influenza , seasonal, injectabl e, preservat elyssa free DoD Influenza, seasonal, injectable, preservative free 1 2011 [id number] 140 CSL [employer] (CSL) complet ed Influenza , seasonal, injectabl e, preservat elyssa free DoD tetanus toxoid, reduced diphtheria toxoid, and acellular pertu is vaccine, adsorbed 0 2011 [id number] 115 Sanofi Pasteur (PMC) complet ed tetanus toxoid, reduced diphtheri a toxoid, and acellular pertussis vaccine, adsorbed DoD Influenza, seasonal, injectable, preservative free 20 2010 [id number] 140 C[employer] (CS) complet ed Influenza , seasonal, injectabl e, preservat elyssa free DoD anthrax vaccine 4 2009 [id number] [employer] [place] ([facility]) complet ed anthrax vaccine DoD influenza virus vaccine, split virus (incl. purified surface antigen)-reti red CODE 0 2009 [id number] 15 Sanofi Pasteur ([facility]) complet ed influenza virus vaccine, split virus (incl. purified surface antigen)- retired CODE DoD anthrax vaccine 4 2009 [id number] 24 [employer] [facility] ([facility]) complet ed anthrax vaccine DoD vaccinia (smallpox) vaccine 1 2009 [id number] 75 [facility] ([facility]) complet ed vaccinia (smallpox ) vaccine DoD typhoid Vi capsular polysaccharid e vaccine 1 2009 [id number] 101 Sanofi Pasteur ([facility]) complet ed typhoid Vi capsular polysacch aride vaccine DoD Novel influenza-H1N 1-09, injectable 1 2009 127 Transcribed (TRS) complet ed Novel influenza -E9T3-08, injectabl e DoD influenza virus vaccine, live, attenuated, for intranasal use 1 2008 [id number] 111 [employer] (MED) complet ed influenza virus vaccine, live, attenuate d, for intranasa l use DoD influenza virus vaccine, live, attenuated, for intranasal use 1 2007 [id number] 111 [employer] (MED) complet influenza virus vaccine, live, attenuate d, for intranasa l use DoD influenza virus vaccine, live, attenuated, for intranasal use 1 2006 [id number] 111 [employer] (MED) complet ed influenza virus vaccine, live, attenuate d, for intranasa l use DoD influenza virus vaccine, split virus (incl. purified surface antigen)-reti red CODE 1 2005 [id number] 15 Sanofi Pasteur ([facility]) complet ed influenza virus vaccine, split virus (incl. purified surface antigen)- retired CODE DoD influenza virus vaccine, whole virus 1 2005 Unknown, Provider [id number] 16 Sanofi Pasteur ([facility]) complet ed influenza virus vaccine, whole virus DoD influenza virus vaccine, split virus (incl. purified surface antigen)-reti red CODE 1 2004 [id number] 15 Sanofi Pasteur ([facility]) complet ed influenza virus vaccine, split virus (incl. purified surface antigen)- retired CODE [facility] influenza virus vaccine, whole virus 1 2004 Unknown, Provider [id number] 16 [facility] ([facility]) complet ed influenza virus vaccine, whole virus DoD influenza virus vaccine, whole virus 0 2004 [id number] 16 [facility] ([facility]) complet ed influenza virus vaccine, whole virus DoD anthrax vaccine 4 2003 [id number] 24 [facility]) complet ed anthrax vaccine DoD anthrax vaccine 5 2003 [id number] 24 [facility]) complet ed anthrax vaccine DoD influenza virus vaccine, whole virus 0 2002 [id number] 16 Unknown (UNK) complet ed influenza virus vaccine, whole virus DoD typhoid vaccine, parenteral, other than acetone-kille d, dried 0 2002 [id number] 41 [facility] ([facility]) complet typhoid vaccine, parentera l, other than acetone-k illed, dried DoD anthrax vaccine 3 2002 [id number] 24 [facility] ([facility]) complet ed anthrax vaccine DoD anthrax vaccine 2 2002 [id number] 24 [facility] ([facility]) complet ed anthrax vaccine [facility] tuberculin skin test; purified protein derivative solution, intradermal 1 2002 Unknown, Provider 96 () complet tuberculi n skin test; purified protein derivativ e solution, intraderm al [facility] influenza virus vaccine, whole virus 0 2002 [id number] 16 [place] ([facility]) complet influenza virus vaccine, whole virus [facility] hepatitis B vaccine, adult dosage 4 2001 43 () complet hepatitis B vaccine, adult dosage [facility] tetanus and diphtheria toxoids, adsorbed, preservative free, for adult use (2 Lf of tetanus toxoid and 2 Lf of diphtheria toxoid) 0 2001 09 () complet ed tetanus and diphtheri a toxoids, adsorbed, preservat elyssa free, for adult use (2 Lf of tetanus toxoid and 2 Lf of diphtheri a toxoid) [facility] tuberculin skin test; purified protein derivative solution, intradermal 1 2001 Unknown, Provider 96 () complet ed tuberculi n skin test; purified protein derivativ e solution, intraderm al DoD influenza virus vaccine, whole virus 0 2000 [id number] 16 Unknown (UNK) comple t ed influenza virus vaccine, whole virus DoD typhoid vaccine, parenteral, other than acetone-kille d, dried 0 2000 [id number] 41 [facility] ([facility]) complet ed typhoid vaccine, parentera l, other than acetone-k illed, dried DoD tuberculin skin test; purified protein derivative solution, intradermal 1 2000 Unknown, Provider [id number] 96 [facility] ([facility]) complet ed tuberculi n skin test; purified protein derivativ e solution, intraderm al DoD influenza virus vaccine, whole virus 0 2000 [id number] 16 [facility] ([facility]) complet ed influenza virus vaccine, whole virus DoD hepatitis A vaccine, adult dosage 2 1999 [id number] Merck (MSD) complet ed hepatitis A vaccine, adult dosage DoD hepatitis B vaccine, adult dosage 3 1999 [id number] 43 Merck (MSD) complet ed hepatitis B vaccine, adult dosage DoD tuberculin skin test; purified protein derivative solution, intradermal 1 1999 Unknown, Provider 2490-[address] [place] [address] ([facility]) complet ed tuberculi n skin test; purified protein derivativ e solution, intraderm al DoD influenza virus vaccine, whole virus 0 [id number] [id number] 16 [facility] ([facility]) complet ed influenza virus vaccine, whole virus DoD typhoid vaccine, parenteral, other than acetone-kille d, dried 0 1998 [id number] 41 Sanofi Pasteur ([facility]) complet ed typhoid vaccine, parentera [...] solution, intradermal 1 1998 Unknown, Provider 2481-[address] [place] [address] ([facility]) complet ed tuberculi n skin test; purified protein derivativ e solution, intraderm al DoD influenza virus vaccine, whole virus 0 19973537 [id number] 16 [facility] (CON) complet ed influenza virus vaccine, whole [...] vaccine, parentera l, acetone-k illed, dried ([employer]) DoD influenza virus vaccine, whole virus 0 [...] solution, intradermal 1 1992 Unknown, Provider 2426-[address] [place] [address] ([facility]) complet tuberculi n skin test; purified protein derivativ e solution, intraderm al DoD typhoid vaccine, parenteral, other than acetone-kille d, dried 0 1992 41 Transcribed (TRS) complet ed typhoid vaccine, parentera l, other than acetone-k illed, dried DoD influenza virus vaccine, whole virus 0 1991 16 Transcribed (TRS) complet ed influenza virus vaccine, whole virus [facility] trivalent poliovirus vaccine, live, oral 0 1991 02 () complet trivalent polioviru s vaccine, live, oral [facility] tetanus and diphtheria toxoids, adsorbed, preservative free, [...] Date Status Disposition Source Theater Facility OUTPATIENT [id number] 07/11 Released w/o Limitations [facility] OUTPATIENT [id number] 12/12 Released w/o Limitations Theater [facility] [place] [address](AFN G 104 Med Sq-FM) OUTPATIENT [id number] Notes Entered by: JT LEDESMA 07 Sep 2017 1457 ------- ------- ------- ------- -- JT MALCOLM 09/07 Released w/o Limitations [facility] [place] [address](A FNG 104 Med Sq-FM) [place] [address](AFN G 104 Med Sq-FM) OUTPATIENT [id number] Notes Entered by: RIKKI HESS 08 Jul 2018 0826 ------- ------- ------- ------- -- LISA CERNA 07/08 Released w/o Limitations [facility] [place] [address](A FNG 104 Med Sq-FM) [facility] [place] [place] [address](AFN G 104 Med Sq-FM) OUTPATIENT [id number] Notes Entered by: JT LEDESMA 19 Sep 2019 0844 ------- ------- ------- ------- -- JT MALCOLM 09/19 Released w/o Limitations [facility] [place] [address](A FNG 104 Med Sq-FM) [facility] [place] [address](AFN G 104 Med Sq-FM) OUTPATIENT [id number] Notes Entered by: JT LEDESMA 12 Dec 2019 1245 ------- ------- ------- ------- -- JT MALCOLM 12/12 Released w/o Limitations [facility] [place] [address](A FNG 104 Med Sq-FM) [facility] [place] [address](AFN G 104 Med Sq-FM) OUTPATIENT [id number] Notes Entered by: RIKKI HESS 19 Feb 2020 1446 ------- ------- ------- ------- -- Status of injury report LISA HESS 02/18 Released with Work/Duty Limitations [facility] [place] [address](A FNG 104 Med Sq-FM) [facility] [place] [address](AFN G 104 Med Sq-FM) TELE CONSULT [id number] Notes Entered by: JT LEDESMA 15 May 2020 1046 ------- ------- ------- ------- -- JT Mendoza 05/15 [facility] [place] [address](A FNG 104 Med Sq-FM) [facility] [place] [address](AFN G 104 Med Sq-FM) TELE CONSULT [id number] Notes Entered by: JT LEDESMA 13 Jun 2020 1443 ------- ------- ------- ------- -- RTD note JT LEDESMA 06/13 [facility] [place] [place] [address](A FNG 104 Med Sq-FM) [facility] Outpatient Encounter [id number] 08/25 [facility] En[facility] [id number] Diagnos is: ICD-10- CM F32.A Depress ion, unspeci ESTELITA Harrison 08/29 [facility] Out[facility] Encounter [id number] 08/30 [facility] OFFICE O/P NEW LOW 30-44 MIN [id number] Diagnos is: ICD-10- CM R06.83 Snoring Annetta DIAL 08/30 [facility] Out[facility] Encounter [id number] 11/02 [facility] Out[facility] Encounter [id number] 12/07 [facility] Encounter [id number] 01/04 [facility] Encounter [id number] 01/08 [facility] Out[facility] Encounter [id number] 01/10 [facility] Out[facility] Encounter [id number] Diagnos is: ICD-10- CM Z02.89 Encount er for other adminis trative examina tiJACKELYN Piper 02/01 [facility] Out[facility] En[facility] [id number] JORGE LUISYESSI ISTOPHER E 02/01 [facility] Outpatient Encounter [id number] Diagnos is: ICD-10- CM F43.10 Post-tr aumatic stress disorde r, unspeci fied [facility] [id number] [facility] [id number] 04/06 [facility] Encounter [id number] 04/06 [facility] COMPRE OPH EXAM NEW PT 1/> [id number] Diagnos is: ICD-10- CM H52.4 Presbyo judi GIO BARRON 08/15 [facility] FIT SPECTACLES MONOFOCAL [id number] Diagnos is: ICD-10- CM Z46.0 Encount er for fit/adj st of spectac les and contact lenses GIO BARRON 08/15 [facility] Out[facility] Encounter [id number] 11/01 [facility] Outpatient Encounter [id number] 11/02 [facility] Outpatient Encounter [id number] 11/18 [facility] PSYCH DIAGNOSTIC EVALUATION [id number] Diagnos is: ICD-10- CM F32.A Depress ion, unspeci fied VANDANA FUNG 12/03 [facility] IELD [facility] COMMUNITY/ WORK REINTEGRAT ION [id number] Diagnos is: ICD-10- CM Z56.0 Unemplo yment, unspeci fiST CLIFF Zayas 12/04 [facility] COMMUNITY/ WORK REINTEGRAT ION [id number] Diagnos is: ICD-10- CM Z56.0 Unemplo yment, unspeci ST CLIFF De Leon 12/12 [facility] OFF/OP CNSLTJ NEW/EST MOD 40 [id number] Diagnos is: ICD-10- CM F43.12 Post-tr aumatic stress disorde r, chronic ST CLIFF BARRIOS 12/13 [facility] IELD [facility] COMMUNITY/ WORK REINTEGRAT ION [id number] Diagnos is: ICD-10- CM Z56.0 Unemplo yment, unspeci fied VALE JAMES 12/14 [facility] COMMUNITY/ WORK REINTEGRAT ION [id number] Diagnos is: ICD-10- CM Z56.0 Unemplo yment, unspeci fied SKERRY MARGE,ST [facility] Procedures Combined list of: 1) Procedures from Department of Veterans Affairs facilities going back up to thelast 18 months, not all [place] non-surgical procedures are included; 2) All procedures from the Department of Defense facilities. Procedure Procedure Type Code Date Perfomer Comments Sour e PSYCHIATRIC DIAGNOSTIC EVALUATION 04/05/2018 [facility] Psychiatric Diagnostic Evaluation Psychiatric Diagnostic Evaluation 34295 04/05/2018 [facility] Psychometric Emotional / Behavioral A e ment Psychometric Emotional / Behavioral Assessment 49639 04/05/2018 [facility] Social History Combined list of available smoking, tobacco, and other social history from Department of Defense and Veterans Affairs facilities. Social History Type Response Date Comment Sourc e Tobacco smoking status NHIS [facility]-TOBACCO NEVER USED CIGARETTES 12/03/2024 [place] History of tobacco use [place]-TOBACCO NEVER USED OTHER TYPE 12/03/2024 [place] History of tobacco use [place]-TOBACCO NEVER USED 08/29/2023 [facility] This section is an empty social history section. [facility] Plan of Care List of future care activities from Department of Veterans Affairs facilities. Additional future care activities may be listed in the Assessment and Plan section. Date/Time Care Activity Care Activity Detail Facili ty 01/08/2025 AMBULATORY - PSYCHIATRY [facility]
--- OUTSIDE RECORDS SUMMARY | 2024-12-27 08:44 | XMS_ITS | Encounter Summary ---
Author Name [facility] [place] [facility] [place] [facility] [place] Address [address] [place] [address] Care Team Providers Care X Ray Physician Name Role Phone BIRD DIAL Primary Care Provider [facility] Insurance Providers: All historical and [...] PRESCRIPT ION RX Oct 31, 2022 THPRX [id number] [phone] TOY, TEGAN PATIENT [facility] HEALTH PLAN LUNA HOFFMANN E Oct 31, 2022 [id number] [phone] TOY, TEGAN PATIENT [facility] SIRIA HOFFMANN E Oct 31, 2022 [id number] [phone] TEGAN YEAGER PATIENT Selected Encounter This section includes the information on record at [place] for the Encounter. Date/Time Encounter Type Encounter Description Reason Provider Source Dec 14, 2024 11:30 AM COMMUNITY/WORK REINTEGRATION HOMELESS [place] COM EMP SVC INDIV ICD-10-CM Z56.0 Unemployment, unspecified CANDAGE,FEDE IHE Encounter Template Text not used by VA Assessments - Encounter Diagnoses This section includes the primary and secondary diagnoses documented for the Encounter. Date/Time Primary/Secondary Diagnosis Diagnosis Name Provider Source Dec 18, 2024 02:04 PM PRIMARY Unemployment, unspecified FEDE JAMES [facility] Plan of Treatment: Future Appointments (+ 6 months) and Future Tests (+/- 45 days) The Plan of Treatment section includes future care activities for the patient from all [place] [facility]. This section includes future appointments and future orders which are active, pending or scheduled. Future Appointments This section includes appointments that were scheduled to occur 6 months from the date of the Encounter, up to a maximum of 20 appointments. The data comes from all [facility] facilities. Appointment Date/Time Appointment Type Appointme nt Facility Name Jan 08, 2025 10:00 AM AMBULATORY - PSYCHIATRY [facility] Active, Pending, and Scheduled Orders This section includes a listing of several types of active, pending, and scheduled orders, including clinic medications orders, diagnostic test orders, procedure orders and consult orders; where the start date of the order is 45 days before the date of the Encounter or 45 days after the date of theEncounter. The data comes from all [facility]. Test Date/Time Test Type Test Details Facility Name Nov 02, 2024 12:00 AM Laboratory - Chemi stry Order CBC BLOOD (LAV-BLOOD) [facility] Nov 02, 2024 12:00 AM Laboratory - Chemi stry Order HEPATITIS B SURFACE ANTIBODY (HBsAb)-WH BLOOD (SST-SERUM) [facility] Nov 02, 2024 12:00 AM Laboratory - Chemi stry Order LIPID PANEL FASTING BLOOD (SST-SERUM) [facility] Nov 02, 2024 12:00 AM Laboratory - Chemi stry Order BASIC METABOLIC PANEL (fasting) BLOOD (SST-SERUM) [facility] Nov 02, 2024 12:00 AM Laboratory - Chemi stry Order LIVER FUNCTION BLOOD (SST-SERUM) [facility] Nov 06, 2024 12:00 AM Laboratory - Chemi stry Order PSA BLOOD (SST-SERUM) SP [facility] Social History: Smoking Status (Most current) and Tobacco Use (All prior to encounter date) This section includes the most current, and the historical, smoking and tobacco- related health factors from the [place] facility where the Encounter took place. Current Smoking Status This section includes the most current smoking, or tobacco-related health factor, from the [place] facility where the Encounter took place. Date/Time Current Smoking Status Comment Facil [facility] Aug 29, 2023 03:07 PM VA-TOBACCO NEVER USED [facility] Encounter Notes: All associated encounter notes This section contains the clinical notes associated to the Encounter. Date/Time Encounter Note(s) Provider Source Dec 14, 2024 01:20 PM SOCIAL WORK NOTE: LOCAL TITLE: VOCATIONAL COMMUNITY EMPLOYMENT COORDIANTOR NOTE STANDARD TITLE: SOCIAL WORK NOTE DATE OF NOTE: DEC 14, 2024@13:20 ENTRY DATE: DEC 18, 2024@13:53:31 AUTHOR: FEDE JAMES COSIGNER: URGENCY: STATUS: COMPLETED COMMUNITY EMPLOYMENT RESOURCES GROUP DROP-IN SESSION Date: 2/ SERVICE PROVIDERS IN ATTENDANCE: [facility] Shadowgraph Operator/Jayde Chacon,[facility] Vocational Counselor/Norbert [facility]May[facility]/Niyah Thomas,[place] Voc Glue Wheel Operator/Jose Nieves,[place] Voc Glue Wheel Operator/ Steve Hooper, [employer]/Employment & Training Electronic Technologist, Tank Jose Antonio & Fred Azar, and RAYSHAWN Rufe was identified by Full Name and : YES NARRATIVE: arrived at the [facility] [employer] [facility] to discuss: Housing, Employment, Child Support, Education/training NEXT STEPS: Micheline reported he recently lost his position via termination, 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 He does however have solid professional references he can use from his time there. Micheline resides in [place] and is looking for employment. He stated he enjoys working in the security field and can easily obtain his LTC. Mr. 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 Rufe stated he would consider that possibility despite having young children at home. was also given a wide range of Service Providers who can offer individualized employment support, in addition to any need for retraining via [employer] ( is [place]) and/or [employer]. Rufe expressed appreciation for the suggestions and agreed to continue meeting with FAMILIA/Rufus. /xiomraa/ FEDE JAMES CARROT BUNCHER Signed: 12/18/2024 14:05 Receipt Acknowledged By: 12/18/2024 14:49 /xiomara/ STEVE BIRD CARROT BUNCHER FEDE JAMES [facility]
--- OUTSIDE RECORDS SUMMARY | 2024-12-27 08:44 | XMS_ITS ---
Author Name [facility] [place] [facility] [place] Address [address] [place] [address] Care Team Providers Care Riprap Man Name Role Phone BIRD DIAL Primary [facility] Provider [facility] Insurance Providers: All historical and current [...] PRESCRIPT ION RX Oct 31, 2022 THPRX [id number] [phone] TOYSANDY HURSTON PATIENT [facility] HEALTH PLAN LUNA HOFFMANN E Oct 31, 2022 [id number] [phone] TOYTEGAN HURST PATIENT [facility] S[facility] Oct 31, [phone] TOYSANDYON PATIENT Selected Encounter This section includes the information on record at [place] for the Encounter. Date/Time Encounter Type Encounter Description Reason Provider Source Dec 19, 2024 10:32 AM COMMUNITY/WORK REINTEGRATION COMMTY BASED EMPLOY [employer] [facility]ES ICD-10-CM Z56.0 Unemployment, unspecified SKERRY MARGE,SREEKANTH N ALIX IHE Encounter Template Text not used by VA Assessments - Encounter Diagnoses This section includes the primary and secondary diagnoses documented for the Encounter. Date/Time Primary/Secondary Diagnosis Diagnosis Name Provider Source Dec 19, 2024 10:51 AM PRIMARY Unemployment, unspecified FAUSTO THOMAS [facility] Plan of Treatment: Future Appointments (+ 6 months) and Future Tests (+/- 45 days) The Plan of Treatment section includes future care activities for the patient from all [place] [facility]. This section includes future appointments and future orders which are active, pending or scheduled. Future Appointments This section includes appointments that were scheduled to occur 6 months from the date of the Encounter, up to a maximum of 20 appointments. The data comes from all [place] treatment facilities. Appointment Date/Time Appointment Type Appointme nt Facility Name Jan 08, 2025 10:00 AM AMBULATORY - PSYCHIATRY [facility] Active, Pending, and Scheduled Orders This section includes a listing of several types of active, pending, and scheduled orders, including clinic medications orders, diagnostic test orders, procedure orders and consult orders; where the start date of the order is 45 days before the date of the Encounter or 45 days after the date of theEncounter. The data comes from all [place] treatment facilities. Test Date/Time Test Type Test Details Facility Name Nov 06, 2024 12:00 AM Laboratory - Chemi stry Order PSA BLOOD (SST-SERUM) SP [facility] Social History: Smoking Status (Most current) and Tobacco Use (All prior to encounter date) This section includes the most current, and the historical, smoking and tobacco- related health factors from the [place] facility where the Encounter took place. Current Smoking Status This section includes the most current smoking, or tobacco-related health factor, from the [place] facility where the Encounter took place. Date/Time Current Smoking Status Comment Facil ity Aug 29, 2023 03:07 PM VA-TOBACCO NEVER USED [facility] Encounter Notes: All associated encounter notes This section contains the clinical notes associated to the Encounter. Date/Time Encounter Note(s) Provider Source Dec 19, 2024 10:51 AM VOCATIONAL REHABILITATION NOTE: LOCAL TITLE: VOCATIONAL REHABILITATION/VOCATIONAL PLAN STANDARD TITLE: VOCATIONAL REHABILITATION NOTE DATE OF NOTE: DEC 19, 2024@10:51 ENTRY DATE: DEC 19, 2024@10:51:46 AUTHOR: MAEGAN THOMASIGNER: URGENCY: STATUS: COMPLETED CWT TW VOCATIONAL PLAN TEGAN YEAGER [phone] Clinic or Program: [facility] DATE: Dec DATE PATIENT ENTERED PROGRAM: Start Date: Dec End Date: VOCATIONAL PEOP[employer]FT FINANCIAL DEVELOPER: Silva Cr TEAM MEMBERS:FAMILIA Bird HEALTH/SAFETY RISKS (DANGER TO SELF AND OTHERS):No HEALTH/SAFETY RISKS (DANGER TO SELF AND OTHERS): No This IS/NOT the first admission to CWT: is S.N.A.P. ASSESSMENT: STRENGTHS: Positive Outgoing Works well with others even with negative co-workers Hardworker Management Inventory Physically in shape Dispatcher Tactical response De-escalation tactics NEEDS: Competitive employment ABILITIES: Tactical response Security forces Tactical engagements PREFERENCES: Security forces preferred PRIMARY BARRIERS TO WORK: None GENERAL WORK GOALS: Find work condusive to security FT VOCATIONAL PLAN PROBLEM: Unemployment GOAL:FT competitive employment VALUE: EMPLOYMENT A. Why is this important to me? Longterm B. Goal/What do I want? Ft competitive work C. Action/Objectve How will I achieve my goals? 1. Work with VR 2. Independent searching 3. Mental health 4. Physical fitness 5. Working on resume/cover letter D. Daily Habits/How will I stay on task? E. Intervention: PLAN REVIEW DATE: 2 months after initial plan During the vocational plan development V[facility] staff confirmed completion of CWT TW work site training and orientation with the [facility]. The demonstrated understanding of work site assignment, requirements and safety policies. 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 ASSESSMENT: STRENGTHS: Positive Outgoing Works well with others even with negative co-workers Hardworker Management Inventory Physically in shape Dispatcher Tactical response De-escalation tactics NEEDS: Competitive employment ABILITIES: Tactical response Security forces Tactical engagements PREFERENCES: Security forces preferred PRIMARY BARRIERS TO WORK: None GENERAL WORK GOALS: Find work condusive to security FT EMPLOYMENT EXPERIENCE: [employer] 7 years [employer] EDUCATION AND TRAINING: GED [employer] Use of force tactics Cuffing techniques Armed weapons (lethal and non lethal) (M4, Beretta) HOUSING SITUATION AND PLANS: Owns their home TRANSPORTATION: Owns their own car NUTRITION SCREEN: 1. Does the patient have Food Allergies? No If Yes, then detail the food allergies: 2. Does the patient report unintentional weight loss OR gain of at least 10 pounds in the last three months? No If Yes, then specify: 3. Does the patient report decreased food intake and/or appetite? No 4. Are there dental problems that impact ability to consume food? No If Yes, then describe: 5. Does the patient report eating habits or behaviors that may be indicators of an eating disorder (e.g. binging or induced vomiting)? No If Yes, then describe: If Nutritional Screen is Positive, refer to Nutrition Clinic MENTAL HEALTH DIAGNOSIS AND RELEVANT MEDICAL CONDITIONS: Depression/PTSD PAIN SCREENING: (0 = No Pain, 10 = Worst Pain Ever) 2 INFORMED CONSENT TO PARTICIPATE IN INTAKE: During the intake, an overview of the Vocational Rehabilitation Program was provided to , including a review of the Vocational Rehabilitation Handbook. [facility] demonstrated an understanding of the contents of the handbook and agreed to abide by all policies and procedures. If participating in CWT-TW submitted the Direct Deposit Authorization Form. /es/ FAUSTO BIRD DISABILITY MANAGER Signed: 12/19/2024 10:51 FAUSTO THOMAS [place] [facility]
== END 2024-12-27 09:34 | disposition home or self-care (01) ==
PROVIDERS: PCP Internal Medicine; Visit Provider Internal Medicine
DX: Z00.01 Encounter for general adult medical examination with abnormal findings (principal); F41.8 Other specified anxiety disorders; Z87.39 Personal history of other diseases of the musculoskeletal system and connective tissue; Z71.89 Other specified counseling; Z23 Encounter for immunization

== ENCOUNTER 2024-12-27 08:19 | Outpatient (REF) | payer OTHER, SELFPAY ==
--- OUTSIDE RECORDS SUMMARY | 2024-12-27 10:06 | XMS_ITS | Continuity of Care Document ---
Author Name [facility] Organization [facility] Care Team Providers Care Pole Inspector Name Role Phone [facility] Unavailable Unavailable Problems Combined list of problems [...] Inactive Condition DoD Alcohol abuse Active Condition [facility] Bulimia nervosa Active Condition [facility] Chronic post-traumatic stress disorder following combat Active Condition [facility] LD Depression Active Condition [facility] Gout (SCT [id number]) Active Condition [facility] [...] F43.12 Post-traumatic stress disorder, chronic Active Diagnosis [facility] Diagnosis: ICD-10-CM F32.A Depression, unspecified Active Diagnosis [facility] Diagnosis: ICD-10-CM Z46.0 Encounter for fit/adjst of spectacles and contact lenses Active Diagnosis [facility] Diagnosis: ICD-10-CM H52.4 Presbyopia Active Diagnosis [facility] Diagnosis: ICD-10-CM F43.10 Post-traumatic stress disorder, unspecified Active Diagnosis [facility] Diagnosis: ICD-10-CM Z02.89 Encounter for other administrative examinations Active Diagnosis [facility] Diagnosis: ICD-10-CM R06.83 Snoring Active Diagnosis [facility] Medications Combined list of outpatient medications [...] HOURS NEEDED ORAL ACTIVE [facility] MELATONIN 5MG CAP/TAB TAKE ONE CAPSULE/ TABLET BY MOUTH HS PRN ORAL ACTIVE BIRD DIAL [facility] SERTRALINE HCL 50MG TAB TAKE ONE TABLET BY MOUTH ONCE DAILY FOR MAJOR DEPRESSI VE DISORDER ORAL ACTIVE 01/12/2025 [id number] Carlo BARRIOS 2024 IELD TRAZODONE HCL 100MG TAB TAKE ONE TABLET BY MOUTH AT BEDTIME ORAL ACTIVE 01/12/2025 [id number] Carlo BARRIOS G 2024 30 IELD Immunizations Combined list of available immunizations from the Department of Defense and Veterans Affairs facilities. Immunization Series Date Given Administered By Site Reaction Lot Number CVX Code Drug Advertising Assistant Status Comments Source influenza, injectable, quadrivalent, preservative free 2019 [place], () Not Given influenza , injectabl e, quadrival ent, preservat elyssa free [facility] Influenza, injectable, quadrivalent, preservative free 1 2019 Unknown, Provider [id number] 150 Sanofi Pasteur (PMC) complet ed Influenza , injectabl e, quadrival ent, preservat elyssa free DoD Influenza, injectable, quadrivalent, preservative free 29 2018 [id number] 150 Seqirus (SEQ) complet ed Influenza , injectabl e, quadrival ent, preservat elyssa free DoD influenza, injectable, quadrivalent, contains preservative 28 2017 [id number] Seqirus (SEQ) comple t ed influenza , injectabl e, quadrival ent, contains preservat elyssa DoD Influenza, injectable, [facility] [place] [facility], preservative free, quadrivalent 27 2016 [id number] Seqirus (SEQ) comple t ed Influenza , injectabl e, [facility] [place] Canine Kidney, preservat elyssa free, quadrival ent DoD Influenza, seasonal, injectable, preservative free 1 2015 [id number] 140 Seqirus (SEQ) comple t ed Influenza , seasonal, injectabl e, preservat elyssa free DoD Influenza, seasonal, injectable, preservative free 1 2014 [id number] 140 Sanofi Pasteur (PMC) complet ed Influenza , seasonal, injectabl e, preservat elyssa free DoD Influenza, seasonal, injectable, preservative free 1 2013 [id number] 140 [employer] (CSL) complet ed Influenza , seasonal, injectabl e, preservat elyssa free DoD Influenza, seasonal, injectable, preservative free 22 2012 [id number] 140 Novartis Pharmaceutica l Trisha. (NOV) complet ed Influenza , seasonal, injectabl e, preservat elyssa free DoD Influenza, seasonal, injectable, preservative free 1 2011 [id number] 140 [employer] (CSL) complet ed Influenza , seasonal, injectabl e, preservat elyssa free DoD tetanus toxoid, reduced diphtheria toxoid, and acellular pertu is vaccine, adsorbed 0 2011 [id number] 115 Sanofi Pasteur (PMC) complet ed tetanus toxoid, reduced diphtheri a toxoid, and acellular pertussis vaccine, adsorbed DoD Influenza, seasonal, injectable, preservative free 20 2010 [id number] 140 [employer] (CS) complet ed Influenza , seasonal, injectabl e, preservat elyssa free DoD anthrax vaccine 4 2009 [id number] [employer] [place] ([facility]) complet ed anthrax vaccine DoD influenza virus vaccine, split virus (incl. purified surface antigen)-reti red CODE 0 2009 [id number] 15 Sanofi Pasteur ([facility]) complet ed influenza virus vaccine, split virus (incl. purified surface antigen)- retired CODE DoD anthrax vaccine 4 2009 [id number] 24 [employer] [facility] ([facility]) complet ed anthrax vaccine DoD vaccinia (smallpox) vaccine 1 2009 [id number] 75 [facility] ([facility]) complet ed vaccinia (smallpox ) vaccine DoD typhoid Vi capsular polysaccharid e vaccine 1 2009 [id number] 101 Sanofi Pasteur ([facility]) complet ed typhoid Vi capsular polysacch aride vaccine DoD Novel influenza-H1N 1-09, injectable 1 2009 127 Transcribed (TRS) complet ed Novel influenza -D2Y5-05, injectabl e DoD influenza virus vaccine, live, attenuated, for intranasal use 1 2008 [id number] 111 [employer] (MED) complet ed influenza virus vaccine, live, attenuate d, for intranasa l use DoD influenza virus vaccine, live, attenuated, for intranasal use 1 2007 [id number] 111 [employer] (MED) complet influenza virus vaccine, live, attenuate d, for intranasa l use DoD influenza virus vaccine, live, attenuated, for intranasal use 1 2006 [id number] 111 [employer] (MED) complet ed influenza virus vaccine, live, attenuate d, for intranasa l use DoD influenza virus vaccine, split virus (incl. purified surface antigen)-reti red CODE 1 2005 [id number] 15 Sanofi Pasteur ([facility]) complet ed influenza virus vaccine, split virus (incl. purified surface antigen)- retired CODE DoD influenza virus vaccine, whole virus 1 2005 Unknown, Provider [id number] 16 Sanofi Pasteur ([facility]) complet ed influenza virus vaccine, whole virus DoD influenza virus vaccine, split virus (incl. purified surface antigen)-reti red CODE 1 2004 [id number] 15 Sanofi Pasteur ([facility]) complet ed influenza virus vaccine, split virus (incl. purified surface antigen)- retired CODE [facility] influenza virus vaccine, whole virus 1 2004 Unknown, Provider [id number] 16 [facility] ([facility]) complet ed influenza virus vaccine, whole virus DoD influenza virus vaccine, whole virus 0 2004 [id number] 16 [facility] ([facility]) complet ed influenza virus vaccine, whole virus DoD anthrax vaccine 4 2003 [id number] 24 [facility] complet ed anthrax vaccine DoD anthrax vaccine 5 2003 [id number] 24 [facility] ([facility]) complet ed anthrax vaccine DoD influenza virus vaccine, whole virus 0 2002 [id number] 16 Unknown (UNK) complet ed influenza virus vaccine, whole virus DoD typhoid vaccine, parenteral, other than acetone-kille d, dried 0 2002 [id number] 41 [facility] ([facility]) complet typhoid vaccine, parentera l, other than acetone-k illed, dried DoD anthrax vaccine 3 2002 [id number] 24 [facility] ([facility]) complet ed anthrax vaccine DoD anthrax vaccine 2 2002 [id number] 24 [facility] ([facility]) complet ed anthrax vaccine [facility] tuberculin skin test; purified protein derivative solution, intradermal 1 2002 Unknown, Provider 96 () complet tuberculi n skin test; purified protein derivativ e solution, intraderm al [facility] influenza virus vaccine, whole virus 0 2002 [id number] 16 [place] ([facility]) complet influenza virus vaccine, whole virus [facility] hepatitis B vaccine, adult dosage 4 2001 43 () complet hepatitis B vaccine, adult dosage [facility] tetanus and diphtheria toxoids, adsorbed, preservative free, for adult use (2 Lf of tetanus toxoid and 2 Lf of diphtheria toxoid) 0 2001 09 () complet ed tetanus and diphtheri a toxoids, adsorbed, preservat elyssa free, for adult use (2 Lf of tetanus toxoid and 2 Lf of diphtheri a toxoid) [facility] tuberculin skin test; purified protein derivative solution, intradermal 1 2001 Unknown, Provider 96 () complet ed tuberculi n skin test; purified protein derivativ e solution, intraderm al DoD influenza virus vaccine, whole virus 0 2000 [id number] 16 Unknown (UNK) comple t ed influenza virus vaccine, whole virus DoD typhoid vaccine, parenteral, other than acetone-kille d, dried 0 2000 [id number] 41 [facility] ([facility]) complet ed typhoid vaccine, parentera l, other than acetone-k illed, dried DoD tuberculin skin test; purified protein derivative solution, intradermal 1 2000 Unknown, Provider [id number] 96 [facility] ([facility]) complet ed tuberculi n skin test; purified protein derivativ e solution, intraderm al DoD influenza virus vaccine, whole virus 0 2000 [id number] 16 [facility] ([facility]) complet ed influenza virus vaccine, whole virus DoD hepatitis A vaccine, adult dosage 2 1999 [id number] Merck (MSD) complet ed hepatitis A vaccine, adult dosage DoD hepatitis B vaccine, adult dosage 3 1999 [id number] Merck (MSD) complet ed hepatitis B vaccine, adult dosage DoD tuberculin skin test; purified protein derivative solution, intradermal 1 1999 Unknown, Provider 2490-[address] [place] [address] ([facility]) complet ed tuberculi n skin test; purified protein derivativ e solution, intraderm al DoD influenza virus vaccine, whole virus 0 [id number] 16 [facility] ([facility]) complet ed influenza virus vaccine, whole virus DoD typhoid vaccine, parenteral, other than acetone-kille d, dried 0 1998 [id number] 41 Sanofi Pasteur ([facility]) complet ed typhoid vaccine, parentera l, [...] solution, intradermal 1 1998 Unknown, Provider 2481-[address] [place] [address] ([facility]) complet ed tuberculi n skin test; purified protein derivativ e solution, intraderm al DoD influenza virus vaccine, whole virus 0 [id number] 16 [facility] (CON) complet ed influenza virus vaccine, whole [...] vaccine, parentera l, acetone-k illed, dried ([employer]) DoD influenza virus vaccine, whole virus 0 [...] solution, intradermal 1 1992 Unknown, Provider 2426-[address] [place] [address] ([facility]) complet tuberculi n skin test; purified protein derivativ e solution, intraderm al DoD typhoid vaccine, parenteral, other than acetone-kille d, dried 0 1992 41 Transcribed (TRS) complet ed typhoid vaccine, parentera l, other than acetone-k illed, dried DoD influenza virus vaccine, whole virus 0 1991 16 Transcribed (TRS) complet ed influenza virus vaccine, whole virus [facility] trivalent poliovirus vaccine, live, oral 0 1991 02 () complet trivalent polioviru s vaccine, live, oral [facility] tetanus and diphtheria toxoids, adsorbed, [...] Date Status Disposition Source Theater Facility OUTPATIENT [id number] 07/11 [facility]ased w/o Limitations [facility] [id number] 12/12 Released w/o Limitations [place] [facility] [place] [address](AFN G 104 [facility] [employer]) OUTPATIENT [id number] Notes Entered by: JT LEDESMA 07 Sep 2017 1457 ------- ------- ------- ------- -- JT MALCOLM 09/07 Released w/o Limitations [facility] [place] [address](A FNG 104 Med Sq-FM) [place] [address](AFN G 104 Med Sq-FM) OUTPATIENT [id number] Notes Entered by: RIKKI HESS 08 Jul 2018 0826 ------- ------- ------- ------- -- LISA CERNA 07/08 Released w/o Limitations [facility] [place] [address](A FNG 104 Med Sq-FM) [place] [address](AFN G 104 Med Sq-FM) OUTPATIENT [id number] Notes Entered by: JT LEDESMA 19 Sep 2019 0844 ------- ------- ------- ------- -- JT MALCOLM 09/19 Released w/o Limitations [facility] [place] [address](A FNG 104 Med Sq-FM) [place] [address](AFN G 104 Med Sq-FM) OUTPATIENT [id number] Notes Entered by: JT LEDESMA 12 Dec 2019 1245 ------- ------- ------- ------- -- JT MALCOLM 12/12 Released w/o Limitations [facility] [place] [address](A FNG 104 Med Sq-FM) [place] [address](AFN G 104 Med Sq-FM) OUTPATIENT [id number] Notes Entered by: RIKKI HESS 19 Feb 2020 1446 ------- ------- ------- ------- -- Status of injury report LISA HESS 02/18 Released with Work/Duty Limitations [facility] [place] [address](A FNG 104 Med Sq-FM) [place] [address](AFN G 104 Med Sq-FM) TELE CONSULT [id number] Notes Entered by: JT LEDESMA 15 May 2020 1046 ------- ------- ------- ------- -- JT Mendoza 05/15 [facility] [place] [address](A FNG 104 Med Sq-FM) [place] [address](AFN G 104 Med Sq-FM) TELE CONSULT [id number] Notes Entered by: JT LEDESMA 13 Jun 2020 1443 ------- ------- ------- ------- -- RTD note JT LEDESMA 06/13 [facility] [place] [address](A FNG 104 Med Sq-FM) [facility] Outpatient Encounter [id number] 08/25 [facility] En[facility] [id number] Diagnos is: ICD-10- CM F32.A Depress ion, unspeci ESTELITA Harrison 08/29 [facility] Out[facility] Encounter [id number] 08/30 [facility] OFFICE O/P NEW LOW 30-44 MIN [id number] Diagnos is: ICD-10- CM R06.83 Snoring Annetta DIAL 08/30 [facility] Out[facility] Encounter [id number] 11/02 [facility] Out[facility] Encounter [id number] 12/07 [facility] Out[facility] Encounter [id number] 01/04 [facility] Out[facility] Encounter [id number] 01/08 [facility] Out[facility] Encounter [id number] 01/10 [facility] Outpatient Encounter [id number] Diagnos is: ICD-10- CM Z02.89 Encount er for other adminis trative examina tiJACKELYN Piper 02/01 [facility] Out[facility] Encounter [id number] JORGE LUISYESSI ISTOPHER E 02/01 [facility] Out[facility] Encounter [id number] Diagnos is: ICD-10- CM F43.10 Post-tr aumatic stress disorde r, unspeci fied [facility] En[facility] [id number] [facility] Out[facility] Encounter [id number] 04/06 [facility] Out[facility] Encounter [id number] 04/06 [facility] COMPRE OPH EXAM NEW PT 1/> [id number] Diagnos is: ICD-10- CM H52.4 Presbyo judi GIO BARRON 08/15 [facility] FIT SPECTACLES MONOFOCAL [id number] Diagnos is: ICD-10- CM Z46.0 Encount er for fit/adj st of spectac les and contact lenses GIO BARRON 08/15 [facility] Out[facility] Encounter [id number] 11/01 [facility] Outpatient Encounter [id number] 11/02 [facility] Outpatient Encounter [id number] 11/18 [facility] [id number] Diagnos is: ICD-10- CM F32.A Depress ion, unspeci fied VANDANA FNUG 12/03 [facility] IELD [facility] COMMUNITY/ WORK REINTEGRAT ION [id number] Diagnos is: ICD-10- CM Z56.0 Unemplo yment, unspeci fiST CLIFF Zayas 12/04 [facility] COMMUNITY/ WORK REINTEGRAT ION [id number] Diagnos is: ICD-10- CM Z56.0 Unemplo yment, unspeci ST CLIFF De Leon 12/12 [facility]OP CNSLTJ NEW/EST MOD 40 [id number] Diagnos is: ICD-10- CM F43.12 Post-tr aumatic stress disorde r, chronic ST CLIFF BARRIOS 12/13 [facility] IELD [facility] COMMUNITY/ WORK REINTEGRAT ION [id number] Diagnos is: ICD-10- CM Z56.0 Unemplo yment, unspeci fied VALE JAMES 12/14 [facility] COMMUNITY/ WORK REINTEGRAT ION [id number] Diagnos is: ICD-10- CM Z56.0 Unemplo yment, unspeci fied SKERRY MARGE,ST EVEN ALIX 12[facility] Procedures Combined list of: 1) Procedures from Department of Veterans Affairs facilities going back up to thelast 18 months, not all [place] non-surgical procedures are included; 2) All procedures from the Department of Defense facilities. Procedure Procedure Type Code Date Perfomer Comments Sour e PSYCHIATRIC DIAGNOSTIC EVALUATION 04/05/2018 [facility] Psychiatric Diagnostic Evaluation Psychiatric Diagnostic Evaluation 29037 04/05/[address] [facility] Psychometric Emotional / Behavioral A e ment Psychometric Emotional / Behavioral Assessment 58323 04/05/[address] [facility] Social History Combined list of available smoking, tobacco, and other social history from Department of Defense and Veterans Affairs facilities. Social History Type Response Date Comment Sourc e Tobacco smoking status NHIS [place]-TOBACCO NEVER USED CIGARETTES 12/03/2024 [facility] History of tobacco use IA-TOBACCO NEVER USED OTHER TYPE 12/03/2024 [facility] History of tobacco use IA-TOBACCO NEVER USED 08/29/2023 [facility] This section is an empty social history section. [facility] Plan of Care List of future care activities from Department of Veterans Affairs facilities. Additional future care activities may be listed in the Assessment and Plan section. Date/Time Care Activity Care Activity Detail Facili ty 01/08/2025 AMBULATORY - PSYCHIATRY AMBULATORY - PSYC HIAT[facility]
[2024-12-27 10:54] LABS: Alanine Aminotransferase 80 U/L (0-40); Anion Gap 11 (12-20); Aspartate Amino Transferase 33 U/L (5-37); Blood Urea Nitrogen 9 mg/dL (9-16); Calcium 9.5 mg/dL (8.4-10.2); Carbon Dioxide 31 mmol/L (22-29); Chloride 104 mmol/L (96-108); Cholesterol 168 mg/dL (<200); Estimated Glomerular Filt Rate > 60; Glucose Fasting 99 mg/dL (60-99); HDL Cholesterol 49 mg/dL (>40); LDL Cholesterol Calculated 106 mg/dL (<100); Potassium 3.8 mmol/L (3.3-5.1); Sodium 142 mmol/L (135-145); Triglycerides 69 mg/dL (<150); Uric Acid 7.4 mg/dL (3.4-7.0)
== END 2024-12-27 08:20 | disposition home or self-care (01) ==
LOC: HO.HMGCLDS 08:19
PROVIDERS: PCP Internal Medicine; Visit Provider Internal Medicine
DX: Z00.01 Encounter for general adult medical examination with abnormal findings (principal); Z23 Encounter for immunization; F41.8 Other specified anxiety disorders; Z87.39 Personal history of other diseases of the musculoskeletal system and connective tissue; Z71.89 Other specified counseling; Z13.220 Encounter for screening for lipoid disorders; Z13.1 Encounter for screening for diabetes mellitus
CPT/HCPCS: 36415; 80048; 80061; 84450; 84460; 84550; 90471; 90656; 96127; 99497

== ENCOUNTER → 2025-05-23 09:01 | Outpatient (BNVA) | payer OTHER, SELFPAY | PROVIDERS: PCP Internal Medicine; Visit Provider Physician Assistant Medical | DX: Z13.89 Encounter for screening for other disorder (principal) | CPT/HCPCS: 99202 ==